=== PATIENT | male | born 1945 | race American Indian/Alaskan Native ===

== ENCOUNTER 2018-04-16 07:02 | Inpatient (IN) | payer MEDICARE, BC ==
[2018-04-10 11:02] VITALS: BMI 32.8
[2018-04-16] MEDS ORDERED: EPINEPHrine 1 mg/ml (1:1000) Inj ONE (07:40)
[2018-04-16] MEDS ORDERED: Absorbable Gelatin Sponge Size 12-7 ONE (07:41)
[2018-04-16] MEDS ORDERED: Thrombin Topical 5,000 Int Units Spray Kit ONE ×2 (07:41→11:08)
[2018-04-16] MEDS ORDERED: Lactated Ringer's 1,000 ML IV ONE ×2 (08:19→14:39)
[2018-04-16 08:23] LABS: BASO % 0.5 % (0.0-2.0); EOS # 0.2 K/uL (0.0-0.7); HEMOGLOBIN 13.4 g/dL (12.0-18.0); LYMPH # 1.2 K/uL (1.0-4.3); LYMPH % 15.3 % (20.0-40.0); MEAN CELL VOLUME 89.5 fl (80.0-94.0); MEAN CORPUSCULAR HEMOGLOBIN 30.2 pg (27.0-31.0); MEAN CORPUSCULAR HGB CONC 33.8 g/dL (33.0-37.0); MEAN PLATELET VOLUME 8.8 fl (7.2-11.7); MONO # 0.7 K/uL (0.0-0.8); MONO % 8.6 % (0.0-10.0); NEUT # 5.6 K/uL (1.8-7.0); NEUT % 73.6 % (50.0-75.0); NRBC % 0.1 % (0.0-0.0); RBC 4.42 Mil/uL (4.40-5.90); RED CELL DISTRIBUTION WIDTH 13.8 % (11.5-14.5); WHITE BLOOD COUNT 7.6 K/uL (4.8-10.8)
--- NOTE | 2018-04-16 09:14 | CP.PCM.HP ---
Addendum entered and electronically signed by Cedric Aquino MD 04/16/18 18:17: Patient was seen and evaluated with resident in [facility] .All preop data reviewed . Patient has medical clearance in the chart. Agree with resident assessment and plan Will follow up patient post op . Original Note: History of Present Illness - History of Present Illness History of Present Illness: 72 y/o male patient with PMHx of Type II Diabetes, Hypertension and Hyperlipidemia was seen and evaluated in [facility] for Left Hip replacement today. Patient states he had pain to the left hip and left knee for the last 4-5 months. Patient states he was referred to Physical therapy and has received pain medication, however patient has failed outpatient therapy at this time. Patient denies any injections to the left hip. Patient states pain is worse with ambulation. Patient complains of urinary urgency, however, denies urinary burning pain, urinary retention, fever, shortness of breath, chest pain, nausea, vomiting, abdominal pain, headache, dizziness, posterior calf tenderness. Patient last saw Dr. Smith 2 weeks ago All patient lab, EKG, and imaging in chart, and medical clearance obtained from PMD and tie hacker Dr. Velasquez Sutton BUN/Cr: 19/1.3 H/H: 14.3/44.1 UA: negative PMD: Dr. Kelechi Carreon PMHx: Type II DM, HTN, HLD FHx: patient does not recal family history PSHx: Cholecystectomy (8 years ago at [facility]), Nasal Surgery (Cyst removal) Social Hx: admits to ETOH use (4-5 cans of beer daily, states he stopped 3 weeks before surgery), admits to daily medical marijuana use, states quit drug use 30 years ago, lives in a 2-family home with 1 flight of stairs with and stepson Allergies: Aspirin, Antiobitics (patient does not recall which medication, states he breaks out into hives post surgery) Next of Kin: Present on Admission - Present on Admission Any Indicators Present on Admission: No History of DVT/PE: No Urinary Catheter: No Review of Systems - Constitutional Constitutional: absent: Chills, Fever, Headache, Weakness - EENT Eyes: absent: Blurred Vision, Change in Vision Nose/Mouth/Throat: absent: Dysphagia - Cardiovascular Cardiovascular: absent: Chest Pain, Chest Pain at Rest, Dyspnea on Exertion - Respiratory Respiratory: absent: Cough, Dyspnea on Exertion, Wheezing - Gastrointestinal Gastrointestinal: absent: Abdominal Pain, Constipation, Diarrhea, Nausea, Vomiting - Genitourinary Genitourinary: Urinary Urgency. absent: Difficulty Urinating, Dysuria, Urinary Incontinence - Integumentary Integumentary: absent: Rash - Neurological Neurological: absent: Dizziness, Numbness, Tingling Past Patient History - Past Medical History & Family History Past Medical History?: Yes - Past Social History Smoking Status: Never Smoked - CARDIAC Hx Cardiac Disorders: Yes Hx Hypertension: Yes - PULMONARY Hx Respiratory Disorders: No - NEUROLOGICAL Hx Neurological Disorder: No - HEENT Hx HEENT Problems: No - RENAL Hx Chronic Kidney Disease: No - ENDOCRINE/METABOLIC Hx Diabetes Mellitus Type 2: Yes - HEMATOLOGICAL/ONCOLOGICAL Hx Blood Disorders: No - INTEGUMENTARY Hx Dermatological Problems: No - MUSCULOSKELETAL/RHEUMATOLOGICAL Hx Musculoskeletal Disorders: Yes Hx Arthritis: Yes (hips,knees,arms) - GASTROINTESTINAL Hx Gastrointestinal Disorders: No - GENITOURINARY/GYNECOLOGICAL Hx Genitourinary Disorders: No - SURGICAL HISTORY Hx Surgeries: Yes Hx Cholecystectomy: Yes Other/Comment: nasal surgery-cyst - ANESTHESIA Hx Anesthesia: Yes Hx Anesthesia Reactions: No Has any member of the family had a problem w/ anesthesia?: No Meds Allergies/Adverse Reactions: Allergies Allergy/AdvReac Type Severity Reaction Status Date / Time aspirin Allergy RASH Verified 04/10/18 11:02 Physical Exam - Constitutional Appears: Well, Non-toxic, No Acute Distress - Head Exam Head Exam: ATRAUMATIC, NORMOCEPHALIC - Eye Exam Eye Exam: PERRL - ENT Exam ENT Exam: Mucous Membranes Moist - Cardiovascular Exam Cardiovascular Exam: REGULAR RHYTHM, RRR, +S1, +S2. absent: JVD - GI/Abdominal Exam GI & Abdominal Exam: Normal Bowel Sounds, Soft. absent: Distended, Firm, Guarding - Extremities Exam Extremities exam: Positive for: normal inspection. Negative for: calf tenderness Additional comments: pain with hip and knee range of motion on the left, no pitting edema noted, no varicosities - Back Exam Back exam: NORMAL INSPECTION. absent: CVA tenderness (L), CVA tenderness (R) - Neurological Exam Neurological exam: Alert, Oriented x3 Additional comments: Patient antalgic gait - Psychiatric Exam Psychiatric exam: Normal Affect, Normal Mood - Skin Skin Exam: Normal Color Results - Vital Signs Recent Vital Signs: Last Vital Signs Temp 98.5 F 04/16/18 07:33 Pulse 62 04/16/18 07:34 Resp 20 04/16/18 07:33 BP 153/84 H 04/16/18 07:33 Pulse Ox 95 04/16/18 07:33 - Labs Result Diagrams: 04/16/18 08:15 Labs: Laboratory Results - last 24 hr 04/16/18 04/16/18 04/16/18 07:53 08:15 08:15 WBC 7.6 RBC 4.42 Hgb 13.4 Hct 39.6 MCV 89.5 MCH 30.2 MCHC 33.8 RDW 13.8 Plt Count 203 MPV 8.8 Neut % (Auto) 73.6 Lymph % (Auto) 15.3 L [place] % (Auto) 8.6 Eos % (Auto) 2.0 Baso % (Auto) 0.5 Neut # (Auto) 5.6 Lymph # (Auto) 1.2 [place] # (Auto) 0.7 Eos # (Auto) 0.2 Baso # (Auto) 0.0 POC Glucose (mg/dL) 128 H Crossmatch See Detail BBK History Checked No verified bt Assessment & Plan - Assessment and Plan (Free Text) Assessment: 2 y/o male patient with PMHx of Type II Diabetes, Hypertension and Hyperlipidemia was seen and evaluated in [facility] for Left Hip replacement today. Pat rob states he had pain to the left hip and left knee for the last 4-5 months Plan: 1) Left Hip Arthritis - Patient labs and EKG/Imaging reviewed in chart - Patient failed conservative outpatient management, Left total Hip Replacement 04/16/[address] Smith - Physical Therapy/ Occupational Therapy Consult - Routine post-op care - Pain Control - Consult Dr. Lopez possible surgical intervention, left total hip replacement 04/16/18 2) Type II Diabetes - controlled, chronic - Glipizide 10 mg PO [facility] - HbA1c (03/26/18) 7.1% 3) Hypertension - Losartan 100 mg PO DAILY - Metoprolol 50 mg BID - Zetia 10 mg PO - Chlorthalidone 25 mg pO - Clonidine 0.3 mg 4)Hyperlipidemia - Zetia 10 mg PO 5) DVT Prophylaxis - as per orthopedic surgery, post-op - Date & Time Date: 04/16/18 Time: 11:35
--- NOTE | 2018-04-16 09:37 | CP.PCM.CON ---
History of Present Illness - History of Present Illness History of Present Illness: Orthopedic consultation: Dr. Lopez Patient is a 72 y/o male with PMH of IDDM, HTN and HLD presents for elective L POOJA. The patient has had chronic hip pain for many years which has progressively worsened over the past 4 months. The pain has been resistant to conservative means, including PT and oral medications. He has had much difficulties with his daily activities due to the pain, including walking and standing. He has required use of a cane over the last few months. The pain is dull, constant and located at the lateral hip and groin. It is associated with locking and stiffness. He denies any radiation of pain/numbn ess/tingling/CP/SOB/N/V/D/fever/dysuria/melena. He denies any cardiac or thromboembolic events in the past. He also suffers from bilateral foot diabetic neuropathy. Review of Systems - Review of Systems All systems: reviewed and no additional remarkable complaints except Review of Systems: as per HPI Past Patient History - Past Medical History & Family History Past Medical History?: Yes Past Family History: Reviewed and not pertinent - Past Social History Smoking Status: Never Smoked Alcohol: > 2 Drinks/Day Drugs: Denies Home Situation {Lives}: With Family - CARDIAC Hx Cardiac Disorders: Yes Hx Hypertension: Yes - PULMONARY Hx Respiratory Disorders: No - NEUROLOGICAL Hx Neurological Disorder: No - HEENT Hx HEENT Problems: No - RENAL Hx Chronic Kidney Disease: No - ENDOCRINE/METABOLIC Hx Diabetes Mellitus Type 2: Yes - HEMATOLOGICAL/ONCOLOGICAL Hx Blood Disorders: No - INTEGUMENTARY Hx Dermatological Problems: No - MUSCULOSKELETAL/RHEUMATOLOGICAL Hx Musculoskeletal Disorders: Yes Hx Arthritis: Yes (hips,knees,arms) - GASTROINTESTINAL Hx Gastrointestinal Disorders: No - GENITOURINARY/GYNECOLOGICAL Hx Genitourinary Disorders: No - SURGICAL HISTORY Hx Surgeries: Yes Hx Cholecystectomy: Yes Other/Comment: nasal surgery-cyst - ANESTHESIA Hx Anesthesia: Yes Hx Anesthesia Reactions: No Has any member of the family had a problem w/ anesthesia?: No Meds Allergies/Adverse Reactions: Allergies Allergy/AdvReac Type Severity Reaction Status Date / Time aspirin Allergy RASH Verified 04/10/18 11:02 Physical Exam - Constitutional Appears: Well, No Acute Distress - Head Exam Head Exam: ATRAUMATIC, NORMOCEPHALIC - Eye Exam Eye Exam: EOMI, Normal appearance, PERRL - ENT Exam ENT Exam: Mucous Membranes Moist - Respiratory Exam Respiratory Exam: NORMAL BREATHING PATTERN - Cardiovascular Exam Cardiovascular Exam: +S1, +S2 - GI/Abdominal Exam GI & Abdominal Exam: Soft. absent: Tenderness - Extremities Exam Additional comments: L hip: no deformity, no lesions, no masses sensation diminished but intact SP/DP/TN bilaterally motor intact EHL/FHL/TA/G pedal pulses intact comps soft NT Results - Vital Signs Recent Vital Signs: Last Vital Signs Temp 98.5 F 04/16/18 07:33 Pulse 62 04/16/18 07:34 Resp 20 04/16/18 07:33 BP 153/84 H 04/16/18 07:33 Pulse Ox 95 04/16/18 07:33 - Labs Result Diagrams: 04/16/18 08:15 Labs: Laboratory Results - last 24 hr 04/16/18 04/16/18 04/16/18 07:53 08:15 08:15 WBC 7.6 RBC 4.42 Hgb 13.4 Hct 39.6 MCV 89.5 MCH 30.2 MCHC 33.8 RDW 13.8 Plt Count 203 MPV 8.8 Neut % (Auto) 73.6 Lymph % (Auto) 15.3 L [place] % (Auto) 8.6 Eos % (Auto) 2.0 Baso % (Auto) 0.5 Neut # (Auto) 5.6 Lymph # (Auto) 1.2 [place] # (Auto) 0.7 Eos # (Auto) 0.2 Baso # (Auto) 0.0 POC Glucose (mg/dL) 128 H Blood Type O POSITIVE Blood Type Confirm Antibody Screen Negative Crossmatch See Detail BBK History Checked No verified bt 04/16/18 08:25 WBC RBC Hgb Hct MCV MCH MCHC RDW Plt Count MPV Neut % (Auto) Lymph % (Auto) [place] % (Auto) Eos % (Auto) Baso % (Auto) Neut # (Auto) Lymph # (Auto) [place] # (Auto) Eos # (Auto) Baso # (Auto) POC Glucose (mg/dL) Blood Type Blood Type Confirm O POSITIVE Antibody Screen Crossmatch BBK History Checked Assessment & Plan (1) Osteoarthritis of left hip Assessment and Plan: -OR today for L POOJA with Dr. Lopez -medical/cardiac clearance in chart -admit to hospitalist -TXA on hold for OR -Risks/benefits/alternatives of procedure were explained to patient who unders tands and agrees to proceed with above procedure -above d/w Dr. Lopez in agreement Status: Acute - Date & Time Date: 04/16/18 Time: 09:37
[2018-04-16] MEDS ORDERED: Tranexamic Acid 1,000 MG in Sodium Chloride 0.9% 100 ML IVPB SCH (10:00)
[2018-04-16] MEDS ORDERED: Lidocaine 4% (Laryng-O-Jet) Kit MM ONE (10:31)
[2018-04-16] MEDS ORDERED: Morphine 1 mg/ml preservative-free Inj(Duramorph) ONE (10:31)
[2018-04-16] MEDS ORDERED: Succinylcholine 200 mg/10 ml Inj IV ONE (10:31)
[2018-04-16] MEDS ORDERED: Rocuronium 10 mg/ml (5 ml) ONE ×2 (10:31→12:49)
[2018-04-16] MEDS ORDERED: Etomidate 20 mg/10ml Inj IV ONE (10:33)
[2018-04-16] MEDS ORDERED: ePHEDrine 50 mg/ml Inj ONE (10:38)
[2018-04-16] MEDS ORDERED: EPINEPHrine 1 mg/ml (1:1000) Inj IV ONE (11:37)
[2018-04-16] MEDS ORDERED: Desflurane Inhalation Anesthetic Liq (240 ml) ONE (12:06)
[2018-04-16] MEDS ORDERED: Absorbable Gelatin Sponge Size 100 TP ONE (12:16)
[2018-04-16] MEDS ORDERED: Sodium Chloride 0.9% 1,000 ML IV ONE (12:16)
[2018-04-16] MEDS ORDERED: Phenylephrine 10 mg/ml Inj ONE (12:44)
[2018-04-16] MEDS ORDERED: Neostigmine 1:1000 (1 mg/ml) Inj ONE (12:50)
[2018-04-16] MEDS ORDERED: Sodium Chloride 0.9% 3,000 ML IV ONE (13:30)
[2018-04-16] MEDS ORDERED: HEMOSTATIC MATRIX 10 ML DIS.NEEDLE TOP ONE (14:15)
--- NOTE | 2018-04-16 14:54 | PCM.SURG1 ---
Surgeon's Initial Post Op Note - Surgeon's Notes Surgeon: Jessica Clinical Laboratory Science Professor: RAISSA López/ 2nd qassist Tomas Diaz P_A-C Type of Anesthesia: General Endo, Spinal Anesthesia Administered By: DR Alcides Pickens Pre-Operative Diagnosis: Primary O/A L hip Operative Findings: Sever primary O/A L hip. synovitis L hip joint. contractures L hip Post-Operative Diagnosis: as above Operation Performed: L THR- anteruior approach]. femoral neck osteotomy. arthrotomy L hip synpovectom. release iliopsoas tendon. autograft bone graft. computer navigation Specimen/Specimens Removed: bone synovium cartilage Estimated Blood Loss: EBL {In ML}: 80 Blood Products Given: N/A Drains Used: Wound Vac Post-Op Condition: Fair Date of Surgery/Procedure: 04/16/18 Time of Surgery/Procedure: 12:30 (time in room 11:15)
[2018-04-16] MEDS ORDERED: oxyCODONE 10 mg Immediate Release Tab PO PRN (14:55)
[2018-04-16] MEDS ORDERED: Absorbable Gelatin Sponge Size 100 ONE (14:58)
[2018-04-16] MEDS ORDERED: HYDROmorphone 0.5 mg/0.5 ml ISec IVP PRN (15:03)
--- NOTE | 2018-04-16 16:06 | RAD ---
PROCEDURE: Left Hip X-ray Radiographs. HISTORY: s/p L POOJA COMPARISON: None. FINDINGS: BONES: There is no acute displaced fracture or bone destruction. Bone alignment is normal. JOINTS: Status post total left hip arthroplasty. SOFT TISSUES: Postoperative changes in the periarticular soft tissues. Lateral skin cassandra. OTHER FINDINGS: None. IMPRESSION: Status post total left hip arthroplasty, no acute findings.
[2018-04-16] MEDS: Clindamycin 600mg/50ml NS 600 MG/50 ML BAG IVPB SCH (16:30)
[2018-04-16 19:03] VITALS: RESP 20
[2018-04-17] MEDS: Clindamycin 600mg/50ml NS 600 MG/50 ML BAG IVPB SCH ×3 (00:33→15:59)
[2018-04-17] MEDS: Sodium Chloride 0.9% 1,000 ML IV SCH ×2 (00:34→11:05)
[2018-04-17 06:33] LABS: HEMOGLOBIN 12.7 g/dL (12.0-18.0); MEAN CELL VOLUME 90.5 fl (80.0-94.0); MEAN CORPUSCULAR HEMOGLOBIN 30.5 pg (27.0-31.0); MEAN CORPUSCULAR HGB CONC 33.7 g/dL (33.0-37.0); RBC 4.17 Mil/uL (4.40-5.90); RED CELL DISTRIBUTION WIDTH 13.9 % (11.5-14.5); WHITE BLOOD COUNT 10.9 K/uL (4.8-10.8)
[2018-04-17 06:35] LABS: BLOOD UREA NITROGEN 18 mg/dl (9-20); CALCIUM 8.4 mg/dL (8.4-10.2); GFR NON-AFRICAN AMERICAN > 60
--- NOTE | 2018-04-17 08:34 | CP.PCM.PN ---
Subjective - Date & Time of Evaluation Date of Evaluation: 04/17/18 Time of Evaluation: 08:00 - Subjective Subjective: Patient seen and examined at bedside. Pain is well controlled. Was straight catheterized due to retention last night. Working with PT currently. No acute events overnight. Denies CP/SOB/dizziness/fever. Objective - Vital Signs/Intake and Output Vital Signs (last 24 hours): Temp Pulse Resp BP Pulse Ox 98.4 F 96 H 20 168/89 H 99 04/17/18 07:49 04/17/18 07:49 04/17/18 07:49 04/17/18 07:49 04/17/18 07:49 - Medications Medications: Current Medications Acetaminophen (Tylenol 325mg Tab) 975 mg PO Q8 [facility] Last Admin: 04/17/18 00:33 Dose: 975 mg Chlorthalidone (Hygroton) 25 mg PO DAILY [facility] Clonidine HCl (Catapres) 0.3 mg PO DAILY [facility] Docusate Sodium (Colace) 100 mg PO BID [facility] Last Admin: 04/16/18 18:38 Dose: 100 mg Ezetimibe (Zetia) 10 mg PO DAILY [facility] Enoxaparin Sodium (Lovenox) 40 mg SC DAILY [facility]; Protocol Ferrous Sulfate (Feosol) 325 mg PO TID [facility] Last Admin: 04/16/18 18:38 Dose: 325 mg Folic Acid (Folic Acid) 1 mg PO DAILY [facility] Glipizide (Glucotrol Xl) 10 mg PO BRK [facility] Home Med (Quinine Sulfate [Qualaquin]) 324 mg PO DAILY [facility] Clindamycin Phosphate (Cleocin 600mg/50ml Ns) 600 mg in 50 mls @ 100 mls/hr IVPB Q8 [facility]; Protocol Last Admin: 04/17/18 00:33 Dose: 100 mls/hr Sodium Chloride (Sodium Chloride 0.9%) 1,000 mls @ 100 mls/hr IV .Q10H [facility] Stop: 04/17/18 14:56 Last Admin: 04/17/18 00:34 Dose: 100 mls/hr Losartan Potassium (Cozaar) 100 mg PO DAILY [facility] Metoprolol Tartrate (Lopressor) 50 mg PO BID [facility] Morphine Sulfate (Morphine) 2 mg IVP Q4 PRN PRN Reason: Pain, severe (8-10) Last Admin: 04/17/18 07:05 Dose: 2 mg Ondansetron HCl (Zofran Inj) 4 mg IVP Q6 PRN PRN Reason: Nausea/Vomiting Last Admin: 04/16/18 18:48 Dose: 4 mg Oxycodone HCl (Oxycodone Immediate Release Tab) 10 mg PO Q6 PRN PRN Reason: Pain, moderate (4-7) - Labs Labs: 04/17/18 06:00 04/17/18 06:00 - Extremities Exam Additional comments: L hip: TIFFANY dressings CDI, mild swelling 2nd to surgery sensation diminished but intact SP/DP/TN bilaterally motor intact EHL/FHL/TA/G pedal pulses intact calves soft NT b/l Assessment and Plan (1) Osteoarthritis of left hip Assessment & Plan: POD#1 s/p L POOJA doing well -PT/OT FWB -DVT ppx -encourage OOB with walker/to chair -discharge to TCU today -above d/w Dr. Lopez in agreement Status: Acute
[2018-04-17] MEDS ORDERED: Enoxaparin 40 mg Syringe SC SCH (09:00)
[2018-04-17] MEDS ORDERED: QUININE SULFATE 324 MG PO SCH (09:00)
[2018-04-17] MEDS ORDERED: GlipiZIDE 10 mg SR Tab PO SCH (09:00)
--- NOTE | 2018-04-17 09:35 | CP.PCM.CON ---
History of Present Illness - History of Present Illness History of Present Illness: THE PATIENT IS A 72 YEAR OLD MALE WHO UNDERWENT A LEFT THR YESTERDAY. HE ALSO HAS A HISTORY OF HYPERTENSION, HYPERLIPIDEMIA AND TYPE 2 DM. HE DENIES ANY CAD HISTORY AND HAD A NEGATIVE PHARMACOLOGICAL STRESS TEST AND GOOD LV FUNCTION ON AN ECHOCARDIOGRAM PRIOR TO SURGERY. CARDIOLOGY HAS BEEN ASKED TO FOLLOW HIM ON THIS ADMISSION. HE IS CHEST PAIN FREE AND BREATHING WELL AT THE PRESENT TIME. Past Patient History - Past Medical History & Family History Past Medical History?: Yes Past Family History: Reviewed and not pertinent - Past Social History Smoking Status: Never Smoked Alcohol: > 2 Drinks/Day Drugs: Denies Home Situation {Lives}: With Family - CARDIAC Hx Cardiac Disorders: Yes Hx Hypertension: Yes - PULMONARY Hx Respiratory Disorders: No - NEUROLOGICAL Hx Neurological Disorder: No - HEENT Hx HEENT Problems: No - RENAL Hx Chronic Kidney Disease: No - ENDOCRINE/METABOLIC Hx Diabetes Mellitus Type 2: Yes - HEMATOLOGICAL/ONCOLOGICAL Hx Blood Disorders: No - INTEGUMENTARY Hx Dermatological Problems: No - MUSCULOSKELETAL/RHEUMATOLOGICAL Hx Musculoskeletal Disorders: Yes Hx Arthritis: Yes (hips,knees,arms) - GASTROINTESTINAL Hx Gastrointestinal Disorders: No - GENITOURINARY/GYNECOLOGICAL Hx Genitourinary Disorders: No - SURGICAL HISTORY Hx Surgeries: Yes Hx Cholecystectomy: Yes Other/Comment: nasal surgery-cyst - ANESTHESIA Hx Anesthesia: Yes Hx Anesthesia Reactions: No Has any member of the family had a problem w/ anesthesia?: No Meds Allergies/Adverse Reactions: Allergies Allergy/AdvReac Type Severity Reaction Status Date / Time aspirin Allergy RASH Verified 04/10/18 11:02 - Medications Medications: Current Medications Acetaminophen (Tylenol 325mg Tab) 975 mg PO Q8 [facility] Last Admin: 04/17/18 00:33 Dose: 975 mg Chlorthalidone (Hygroton) 25 mg PO DAILY [facility] Clonidine HCl (Catapres) 0.3 mg PO DAILY [facility] Docusate Sodium (Colace) 100 mg PO BID [facility] Last Admin: 04/17/18 09:07 Dose: 100 mg Ezetimibe (Zetia) 10 mg PO DAILY [facility] Enoxaparin Sodium (Lovenox) 40 mg SC DAILY [facility]; Protocol Last Admin: 04/17/18 09:08 Dose: 40 mg Ferrous Sulfate (Feosol) 325 mg PO TID [facility] Last Admin: 04/17/18 09:06 Dose: 325 mg Folic Acid (Folic Acid) 1 mg PO DAILY [facility] Last Admin: 04/17/18 09:11 Dose: 1 mg Glipizide (Glucotrol Xl) 10 mg PO BRK [facility] Home Med (Quinine Sulfate [Qualaquin]) 324 mg PO DAILY [facility] Clindamycin Phosphate (Cleocin 600mg/50ml Ns) 600 mg in 50 mls @ 100 mls/hr IVPB Q8 [facility]; Protocol Last Admin: 04/17/18 00:33 Dose: 100 mls/hr Sodium Chloride (Sodium Chloride 0.9%) 1,000 mls @ 100 mls/hr IV .Q10H [facility] Stop: 04/17/18 14:56 Last Admin: 04/17/18 00:34 Dose: 100 mls/hr Losartan Potassium (Cozaar) 100 mg PO DAILY [facility] Metoprolol Tartrate (Lopressor) 50 mg PO BID [facility] Last Admin: 04/17/18 09:12 Dose: 50 mg Morphine Sulfate (Morphine) 2 mg IVP Q4 PRN PRN Reason: Pain, severe (8-10) Last Admin: 04/17/18 07:05 Dose: 2 mg Ondansetron HCl (Zofran Inj) 4 mg IVP Q6 PRN PRN Reason: Nausea/Vomiting Last Admin: 04/16/18 18:48 Dose: 4 mg Oxycodone HCl (Oxycodone Immediate Release Tab) 10 mg PO Q6 PRN PRN Reason: Pain, moderate (4-7) Physical Exam - Respiratory Exam Respiratory Exam: Clear to Auscultation Bilateral - Cardiovascular Exam Cardiovascular Exam: REGULAR RHYTHM, +S1, +S2 - Extremities Exam Additional comments: NO LE EDEMA - Additional Findings Additional findings: SURGICAL NOTES REVIEWED Results - Vital Signs Recent Vital Signs: Last Vital Signs Temp 98.4 F 04/17/18 07:49 Pulse 96 H 04/17/18 09:12 Resp 20 04/17/18 07:49 BP 180/100 H 04/17/18 09:12 Pulse Ox 99 04/17/18 07:49 - Labs Result Diagrams: 04/17/18 06:00 04/17/18 06:00 Labs: Laboratory Results - last 24 hr 04/16/18 04/16/18 04/17/18 15:01 21:33 05:25 WBC RBC Hgb Hct MCV MCH MCHC RDW Plt Count Sodium Potassium Chloride Carbon Dioxide Anion Gap BUN Creatinine Est GFR ( Amer) Est GFR (Non-Af Amer) POC Glucose (mg/dL) 126 H 194 H 256 H Random Glucose Calcium 04/17/18 04/17/18 06:00 06:00 WBC 10.9 H RBC 4.17 L Hgb 12.7 Hct 37.7 MCV 90.5 MCH 30.5 MCHC 33.7 RDW 13.9 Plt Count 181 Sodium 135 Potassium 3.9 Chloride 102 Carbon Dioxide 25 Anion Gap 12 BUN 18 Creatinine 1.1 Est GFR ( Amer) > 60 Est GFR (Non-Af Amer) > 60 POC Glucose (mg/dL) Random Glucose 222 H Calcium 8.4 Assessment & Plan - Assessment and Plan (Free Text) Assessment: LEFT THR HYPERTENSION HYPERLIPIDEMIA TYPE 2 DM Plan: CONTINUE CLONIDINE, LOSARTAN, METOPROLOL, ZETIA, GLUCOTROL AND LOVENOX FOR REHAB
--- NOTE | 2018-04-17 11:33 | CP.PCM.DIS ---
Provider - Provider Date of Admission: 04/16/18 11:32 Attending physician: Cedric Aquino MD Primary care physician: Dr. Carreon Consults: ortho consult PT consult Time Spent in preparation of Discharge (in minutes): 20 Hospital Course - Lab Results Lab Results: Most Recent Lab Values WBC 10.9 K/uL (4.8-10.8) H 04/17/18 06:00 RBC 4.17 Mil/uL (4.40-5.90) L 04/17/18 06:00 Hgb 12.7 g/dL (12.0-18.0) 04/17/18 06:00 Hct 37.7 % (35.0-51.0) 04/17/18 06:00 MCV 90.5 fl (80.0-94.0) 04/17/18 06:00 MCH 30.5 pg (27.0-31.0) 04/17/18 06:00 MCHC 33.7 g/dL (33.0-37.0) 04/17/18 06:00 RDW 13.9 % (11.5-14.5) 04/17/18 06:00 Plt Count 181 K/uL (130-400) 04/17/18 06:00 MPV 8.8 fl (7.2-11.7) 04/16/18 08:15 Neut % (Auto) 73.6 % (50.0-75.0) 04/16/18 08:15 Lymph % (Auto) 15.3 % (20.0-40.0) L 04/16/18 08:15 [place] % (Auto) 8.6 % (0.0-10.0) 04/16/18 08:15 Eos % (Auto) 2.0 % (0.0-4.0) 04/16/18 08:15 Baso % (Auto) 0.5 % (0.0-2.0) 04/16/18 08:15 Neut # (Auto) 5.6 K/uL (1.8-7.0) 04/16/18 08:15 Lymph # (Auto) 1.2 K/uL (1.0-4.3) 04/16/18 08:15 [place] # (Auto) 0.7 K/uL (0.0-0.8) 04/16/18 08:15 Eos # (Auto) 0.2 K/uL (0.0-0.7) 04/16/18 08:15 Baso # (Auto) 0.0 K/uL (0.0-0.2) 04/16/18 08:15 Sodium 135 mmol/l (132-148) 04/17/18 06:00 Potassium 3.9 MMOL/L (3.6-5.0) 04/17/18 06:00 Chloride 102 mmol/L (98-107) 04/17/18 06:00 Carbon Dioxide 25 mmol/L (22-30) 04/17/18 06:00 Anion Gap 12 (10-20) 04/17/18 06:00 BUN 18 mg/dl (9-20) 04/17/18 06:00 Creatinine 1.1 mg/dl (0.8-1.5) 04/17/18 06:00 Est GFR ( Amer) > 60 04/17/18 06:00 Est GFR (Non-Af Amer) > 60 04/17/18 06:00 POC Glucose (mg/dL) 256 mg/dL (65-110) H 04/17/18 10:40 Random Glucose 222 mg/dL (75-110) H 04/17/18 06:00 Calcium 8.4 mg/dL (8.4-10.2) 04/17/18 06:00 Blood Type O POSITIVE 04/16/18 08:15 Blood Type Confirm O POSITIVE 04/16/18 08:25 Antibody Screen Negative 04/16/18 08:15 Crossmatch See Detail 04/16/18 08:15 BBK History Checked No verified bt 04/16/18 08:15 - Hospital Course Hospital Course: 72 y/o male with PMH HTN , Type II DM , dyslipidemia, hip OA admitted via [facility] for elective left hip replacement . Ortho was consulted and patient underwent left THR. Post op doing well, pain controlled , participated with PT and cleared by ortho for discharge. Post op he developed urinary retention secondary to anesthesia and narcotic use so was started on Flomax PO . Pt eval appreciated . will d/c patient to TCU for PT Follow up with Dr. Lopez in 1 week Lovenox 40 mg SQ daily for DVT prophylaxis 1.Status post Left total hip replacement for osteoarthritis follow up with Dr. Luis Kaplan for DVt prophylaxis pain medication Percoset PRN d/c to TCU for PT 2. Type II Diabetes controlled, chronic Glipizide 10 mg PO [facility] HbA1c (03/26/18) 7.1% 3. Hypertension chronic , controlled continue home meds 4.Hyperlipidemia on Zetia 10 mg PO 5. Post op urinary retention started Flomax most likely urinary retention due to anesthesia and pain management 6. DVT prophylaxis lovenox Discharge Exam - Head Exam Head Exam: ATRAUMATIC, NORMOCEPHALIC - Eye Exam Eye Exam: EOMI, Normal appearance, PERRL Pupil Exam: NORMAL ACCOMODATION - ENT Exam ENT Exam: Mucous Membranes Moist, Normal Exam - Neck Exam Neck exam: Full Rom, Normal Inspection - Respiratory Exam Respiratory Exam: Clear to PA & Lateral, NORMAL BREATHING PATTERN. absent: Rhonchi, Wheezes, Respiratory Distress - Cardiovascular Exam Cardiovascular Exam: REGULAR RHYTHM, RRR, +S1, +S2. absent: JVD - GI/Abdominal Exam GI & Abdominal Exam: Normal Bowel Sounds, Soft. absent: Distended, Guarding, Rebound, Tenderness - Rectal Exam Rectal Exam: Deferred - Extremities Exam Extremities exam: pedal pulses present Additional comments: left hip surgical incision with dressing in place and TIFFANY dressing - Back Exam Back exam: NORMAL INSPECTION - Neurological Exam Neurological exam: Alert, CN II-XII Intact, Oriented x3 - Psychiatric Exam Psychiatric exam: Normal Affect, Normal Mood - Skin Skin Exam: Dry, Intact, Normal Color, Warm Discharge Plan - Discharge Medications Prescriptions: Docusate Sodium [Colace] 100 mg PO BID #20 capsule Ferrous Sulfate 325 mg PO BID #30 tablet oxyCODONE/Acetaminophen [Percocet 5/325 mg Tab] 1 tab PO Q4 PRN #30 tab PRN Reason: Pain, Severe (8-10) Tamsulosin HCl [Flomax] 0.4 mg PO DAILY #10 cap.er.24h - Follow Up Plan Condition: GOOD Disposition: REHAB FACILITY/REHAB UNIT Patient education suggested?: Yes Referrals: Armen Lopez III, MD [Staff Provider] - Kelechi Carreon MD [Family Provider] -
--- NOTE | 2018-04-17 13:42 | RAD ---
Date of service: 04/16/2018 PROCEDURE: Fluoroscopy up to 1 hr. HISTORY: LEFT HIP COMPARISON: None TECHNIQUE: Standard protocol for this study/examination. FINDINGS: Submitted images from the current procedure: 5.0 IMPRESSION: Less than 1 hr fluoroscopic assistance provided during performance of the procedure.
[2018-04-17 15:55] VITALS: BP 155/82; TEMP 97.9; O2SAT 97
[2018-04-17 16:01] VITALS: PULSE 97
--- NOTE | 2018-04-17 16:31 | OP ---
PROCEDURE DATE: 04/16/2018 LOCATION: [facility]. PREOPERATIVE DIAGNOSIS: Primary osteoarthritis of the left hip. OPERATIVE FINDINGS: 1. Severe primary osteoarthritis of the left hip. 2. Synovitis of the left hip joint. 3. Contractures of the left hip. POSTOPERATIVE DIAGNOSES: 1. Primary osteoarthritis of the left hip. 2. Synovitis in the left hip joint. 3. Iliopsoas capsular contracture. OPERATIONS PERFORMED: 1. Left total hip replacement, anterior approach. 2. Femoral neck osteotomy. 3. Arthrotomy of the left hip. 4. Synovectomy. 5. Release of iliopsoas tendon. 6. Autograft bone graft. 7. Computer navigation with the DataSift system. SPECIMENS REMOVED: Bone, synovium, cartilage. BLOOD LOSS: Approximately 80 mL. BLOOD PRODUCTS: No blood products given. DRAINS USED: The TIFFANY wound dressing. POSTOPERATIVE CONDITION: Fair. TIME OF SURGERY: Incision time 12:30, time in the room 11:15. OPERATIVE INDICATIONS: Erik Shields is a 72-year-old with severe hypertrophic osteoarthritis of the left hip. The patient has a marked leg length inequality, left lower extremity markedly shorter than the right and wishes the left lower extremity length, and pros, cons, risks and benefits of surgical approach were discussed. The possibility of mechanical failure, infection, thromboembolic disease, secondary or tertiary surgery was discussed. The patient can no longer withstand the discomfort and wished the surgery to be accomplished. OPERATIVE PROCEDURE: After having obtained informed consent in the above fashion, after having identified side, site and procedure and a critical pause/time-out after the satisfactory induction of general and spinal anesthesia by Dr. Pickens, the patient identified as Erik Shields, was placed in the modified traction positioner in the supine position. All bony prominences were well padded. Under the surgeon's direction, the fluoroscope was positioned, video images were generated, therapeutic decisions were made therefrom. The left lower extremity was found to be short by approximately one-half to three quarter inches preoperatively secondary to the severe nature of the osteoarthritis and the primary migration superiorly and laterally. The possibility of mechanical failure, infection, thromboembolic disease, secondary or tertiary surgery had been discussed. After sterilely prepping and draping the left lower extremity, the incision was described one fingerbreadth distal to the anterior superior iliac spine and four fingerbreadths distal to that, superficial to the tensor fascia femoris muscle. The anterior superior iliac spine was marked with skin incision. After having performed a critical pause/time-out, the incision was carried down through the skin and subcutaneous tissue. The fascia was divided using electrocautery. The investing fascia of the tensor fascia femoris was identified, grasped with an Allis clamp and the digastric tensor fascia femoris muscle was brought down from the fascia. This having been accomplished, the modified Medacta Ezekiel-Lorraine retractor was placed. The posterior aspect of the rectus femoris was identified. Hemostasis controlled with the Aquamantys and the Medacta retractor was placed deeper in a horizontal plane exposing the hip capsule and the hip joint in a horizontal fashion. A retractor was placed superiorly and proximally. The fascia was divided. The underlying anterior branch of the lateral femoral and circumflex vessels were identified and controlled with LigaSure. This having been accomplished, a capsulotomy was accomplished with the hip first in internal rotation and external rotation, brought down to the area of the intertrochanteric line, and the capsule was elevated. The capsule was released. The capsule was tagged at this point using a tag suture. Modified Hohmann retractors were placed and the femoral neck osteotomy was carefully planned. It should be noted that the femoral neck osteotomy because of the leg length was planned preoperatively and was planned intraoperatively using intraoperative fluoroscopy and at this point in time, the femoral neck osteotomy was accomplished at a point approximately 1.5 cm above the lesser trochanter. This having been accomplished, placed. The lower extremity was externally rotated. The half inch straight osteotome was placed in the cut neck, externally rotated. The bone hook was placed. The corkscrew was placed and the femoral head was removed from the acetabulum. At this point in time, the labrum was identified and there was found to be massive osteophytes and these were removed carefully with a curved osteotome. This having been accomplished, the Charnley retractor was placed. A portion of the capsular flap is released and the release begins with the pubofemoral ligament. There was found to be marked contracture in this relatively well muscled 72-year-old gentleman. This having been accomplished, the synovectomy was accomplished carefully. The pulvinar was identified. The synovium was removed. The head measured 50 mm. Sequential reaming was carried out to a 54 mm. This having been accomplished, the computer navigation commences at this point. Two incisions were described on the anterior iliac spine one fingerbreadth posteriorly. The two supporting threaded pins were placed and the camera mounting was placed in the appropriate fashion. This having been accomplished, registration commences the anterior plane of the pelvis with the anterior superior iliac spine on the left and right registered, the pelvis is thus registered. This having been accomplished, reaming was accomplished medially, superiorly and posteriorly and this having been accomplished, the computer probe was placed on the reamer and the measurement is approximately 40 degrees of abduction and 20 degrees of anteversion. Reaming was carried out to 54 mm. The reaming is denuded of articular cartilage and are saved. At this point in time, the cup was introduced after bone grafting and the cup was introduced in abduction and anteversion. This having been accomplished, trialing having been accomplished, autograft bone grafting to the acetabulum was accomplished and the 54 mm cup was impacted. Again, there was approximately 42 degrees of abduction and approximately 20 degrees of anteversion, found to be acceptable for the left hip. This having been accomplished, the lower extremity is placed in external rotation. The pubofemoral ligament was released. The iliofemoral ligament was released and the superior capsular flap was released. This having been accomplished with further external rotation and hyperextension, the proximal femur was identified. The bridge of bone between the neck and the trochanter was removed. The bur was used to develop the plane of the femur. The rasp was placed and sequential reaming was accomplished. Sequential broaching was accomplished to a #2 broach. This having been accomplished with the standard head and 28-mm standard neck, the dual mobility construct was reduced and found to be stable in all planes. This having been accomplished, the #2 Medacta collared femoral component was impacted. Autograft bone grafting was accomplished. The ceramic 20 mm head was conjoined to the 54 mm polyethylene outer bearing. The hip was reduced and found to be stable in all planes. Hemostasis controlled with the Aquamantys and with the FloSeal and this having been accomplished after thorough irrigation. Bone grafting having been accomplished to the femur. Closure was in layers with 0 Quill for the fascia on the tensor fascia femoris, 0 Vicryl and cassandra for skin. A compression dressing and TIFFANY drain was applied. Postoperative x-rays in recovery found to be satisfactory. The hip was found to be stable to push-pull and range of motion. Armen Lopez MD
== END 2018-04-17 16:05 | DRG 470 ==
LOC: H.OPSURG 07:02 → H.MEDSURG1 11:32 → OBSVTOIN 04-17 15:17
PROVIDERS: ADMIT Hospitalist; ATTEND Hospitalist
PROC: 0SBB0ZZ Excision of Left Hip Joint, Open Approach (ICD-10-PCS; 2018-04-16)
PROC: 0SNB0ZZ Release Left Hip Joint, Open Approach (ICD-10-PCS; 2018-04-16)
PROC: 8E0YXBF Computer Assisted Procedure of Lower Extremity, With Fluoroscopy (ICD-10-PCS; 2018-04-16)
PROC: 0SRB04A Replacement of Left Hip Joint with Ceramic on Polyethylene Synthetic Substitute, Uncemented, Open Approach (ICD-10-PCS; principal; 2018-04-16 10:30)
DX: M16.12 Unilateral primary osteoarthritis, left hip (principal); E11.40 Type 2 diabetes mellitus with diabetic neuropathy, unspecified; M65.9 Synovitis and tenosynovitis, unspecified; R33.0 Drug induced retention of urine; Z79.4 Long term (current) use of insulin; E78.5 Hyperlipidemia, unspecified; I10 Essential (primary) hypertension; M24.552 Contracture, left hip; T41.205A Adverse effect of unspecified general anesthetics, initial encounter; T40.605A Adverse effect of unspecified narcotics, initial encounter

== ENCOUNTER 2018-04-17 15:05 | Inpatient (IN) | payer OTHER, BC ==
[2018-04-10 11:02] VITALS: BMI 32.8
[2018-04-17] MEDS ORDERED: Oxycodone/Acetaminophen 5/325 mg Tab PO PRN (17:27)
[2018-04-17] MEDS: Oxycodone/Acetaminophen 5/325 mg Tab PO PRN ×2 (17:53→21:44)
[2018-04-17 19:02] VITALS: RESP 20
[2018-04-17] MEDS: Insulin Lispro (humaLOG) 100 Units/ml Inj SC SCH (21:32)
[2018-04-18] MEDS: Oxycodone/Acetaminophen 5/325 mg Tab PO PRN ×4 (01:38→21:25)
[2018-04-18 06:14] LABS: BASO # 0.1 K/uL (0.0-0.2); BASO % 0.5 % (0.0-2.0); EOS % 0.3 % (0.0-4.0); LYMPH # 0.9 K/uL (1.0-4.3); LYMPH % 5.5 % (20.0-40.0); MEAN CELL VOLUME 89.7 fl (80.0-94.0); MEAN CORPUSCULAR HEMOGLOBIN 30.2 pg (27.0-31.0); MEAN CORPUSCULAR HGB CONC 33.6 g/dL (33.0-37.0); MEAN PLATELET VOLUME 9.1 fl (7.2-11.7); MONO # 1.2 K/uL (0.0-0.8); MONO % 7.3 % (0.0-10.0); NEUT # 14.3 K/uL (1.8-7.0); NEUT % 86.4 % (50.0-75.0); PLATELET COUNT 185 K/uL (130-400); RED CELL DISTRIBUTION WIDTH 14.3 % (11.5-14.5); WHITE BLOOD COUNT 16.5 K/uL (4.8-10.8)
[2018-04-18 06:28] LABS: BLOOD UREA NITROGEN 13 mg/dl (9-20); CALCIUM 8.7 mg/dL (8.4-10.2); GFR NON-AFRICAN AMERICAN > 60
[2018-04-18] MEDS: Insulin Lispro (humaLOG) 100 Units/ml Inj SC SCH ×4 (07:49→21:24)
[2018-04-18 09:30] LABS: LYMPHOCYTE 8 % (20-50); MONOCYTE 7 % (0-10); NEUTROPHIL 85 % (42-75); TOTAL CELLS COUNTED 100
[2018-04-18 09:31] LABS: ANISOCYTOSIS SLIGHT; PLATELET ESTIMATE NORMAL (NORMAL)
[2018-04-18] MEDS: GlipiZIDE 10 mg SR Tab PO SCH (09:32)
[2018-04-18] MEDS ORDERED: Bisacodyl 5mg EC Tab PO ONE (10:48)
--- NOTE | 2018-04-18 11:32 | CP.PCM.HP ---
<Kevin Urias - Last Filed: 04/18/18 12:58> History of Present Illness - History of Present Illness History of Present Illness: 72 y/o male patient with PMHx of Type II Diabetes, Hypertension and Hyperlipidemia is 2 days s/p Left Hip Replacement. Patient failed outpatient therapy and opted to have surgical treatment. Patient reports being seen by Physical Therapy in TCU. Patient complains of pain to the left hip. Patient denies urinary burning, urinary retention, fever, shortness of breath, chest pain, nausea, vomiting, abdominal pain, headache, dizziness, posterior calf tenderness. Present on Admission - Present on Admission Any Indicators Present on Admission: Yes History of DVT/PE: No History of Uncontrolled Diabetes: No Review of Systems - Constitutional Constitutional: absent: Chills, Fever, Headache, Weakness - EENT Eyes: absent: Blurred Vision, Change in Vision, Loss of Vision Ears: absent: Dizziness Nose/Mouth/Throat: absent: Dysphagia - Cardiovascular Cardiovascular: absent: Chest Pain, Chest Pain at Rest, Chest Pain with Activity, Dyspnea, Dyspnea on Exertion, Edema, Pain Radiating to Arm/Neck/Jaw, Palpitations, Pedal Edema - Gastrointestinal Gastrointestinal: Nausea, Vomiting. absent: Abdominal Pain, Diarrhea - Integumentary Integumentary: absent: Rash - Neurological Neurological: absent: Numbness, Headaches, Syncope, Tingling Past Patient History - Infectious Disease Hx of Infectious Diseases: None - Tetanus Immunizations Tetanus Immunization: Unknown - Past Medical History & Family History Past Medical History?: Yes - Past Social History Smoking Status: Current Some Days Smoker Chewing Tobacco Use: No Cigar Use: No Alcohol: > 2 Drinks/Day Drugs: Other Home Situation {Lives}: With Family Domestic Violence: Negative - CARDIAC Hx Cardiac Disorders: Yes Hx Hypertension: Yes - PULMONARY Hx Respiratory Disorders: No - NEUROLOGICAL Hx Neurological Disorder: No - HEENT Hx HEENT Problems: No - RENAL Hx Chronic Kidney Disease: No - ENDOCRINE/METABOLIC Hx Diabetes Mellitus Type 2: Yes - HEMATOLOGICAL/ONCOLOGICAL Hx AIDS: No Hx Human Immunodeficiency Virus (HIV): No - INTEGUMENTARY Hx Dermatological Problems: No - MUSCULOSKELETAL/RHEUMATOLOGICAL Hx Falls: No - GASTROINTESTINAL Hx Gastrointestinal Disorders: No - GENITOURINARY/GYNECOLOGICAL Hx Genitourinary Disorders: No - PSYCHIATRIC Hx Substance Use: No - SURGICAL HISTORY Hx Surgeries: Yes Hx Cholecystectomy: Yes Hx Orthopedic Surgery: Yes (left total hip replacement) Other/Comment: nasal surgery-cyst - ANESTHESIA Hx Anesthesia: Yes Hx Anesthesia Reactions: No Meds Allergies/Adverse Reactions: Allergies Allergy/AdvReac Type Severity Reaction Status Date / Time aspirin Allergy RASH Verified 04/10/18 11:02 Physical Exam - Constitutional Appears: Well, Non-toxic, No Acute Distress - Head Exam Head Exam: ATRAUMATIC, NORMOCEPHALIC - Eye Exam Eye Exam: Normal appearance, PERRL - ENT Exam ENT Exam: Mucous Membranes Moist - Neck Exam Neck exam: Positive for: Full Rom. Negative for: Lymphadenopathy - Respiratory Exam Respiratory Exam: Clear to Auscultation Bilateral, NORMAL BREATHING PATTERN. absent: Rales, Rhonchi, Wheezes - Cardiovascular Exam Cardiovascular Exam: REGULAR RHYTHM, RRR, +S1, +S2 - GI/Abdominal Exam GI & Abdominal Exam: Normal Bowel Sounds. absent: Distended, Firm, Guarding, Tenderness - Extremities Exam Extremities exam: Positive for: normal inspection. Negative for: calf tenderness Additional comments: small dressing to the left hip intact and clean - Back Exam Back exam: NORMAL INSPECTION. absent: CVA tenderness (L), CVA tenderness (R) - Neurological Exam Neurological exam: Alert, Oriented x3 - Skin Skin Exam: Normal Color Results - Vital Signs Recent Vital Signs: Last Vital Signs Temp 98.8 F 04/18/18 09:28 Pulse 93 H 04/18/18 09:32 Resp 20 04/18/18 09:28 BP 160/96 H 04/18/18 09:32 Pulse Ox 96 04/18/18 09:28 - Labs Result Diagrams: 04/18/18 05:40 04/18/18 05:40 Labs: Laboratory Results - last 24 hr 04/17/18 04/18/18 04/18/18 21:18 05:40 05:40 WBC 16.5 H D RBC 4.30 L Hgb 13.0 Hct 38.5 MCV 89.7 MCH 30.2 MCHC 33.6 RDW 14.3 Plt Count 185 MPV 9.1 Neut % (Auto) 86.4 H Lymph % (Auto) 5.5 L Wright % (Auto) 7.3 Eos % (Auto) 0.3 Baso % (Auto) 0.5 Neut # (Auto) 14.3 H Lymph # (Auto) 0.9 L Wright # (Auto) 1.2 H Eos # (Auto) 0.0 Baso # (Auto) 0.1 Neutrophils % (Manual) 85 H Lymphocytes % (Manual) 8 L Monocytes % (Manual) 7 Platelet Estimate Normal Anisocytosis (manual) Slight Sodium 133 Potassium 4.0 Chloride 100 Carbon Dioxide 29 Anion Gap 8 L BUN 13 Creatinine 0.9 Est GFR ( Amer) > 60 Est GFR (Non-Af Amer) > 60 POC Glucose (mg/dL) 155 H Random Glucose 179 H Calcium 8.7 04/18/18 04/18/18 06:31 11:07 WBC RBC Hgb Hct MCV MCH MCHC RDW Plt Count MPV Neut % (Auto) Lymph % (Auto) Wright % (Auto) Eos % (Auto) Baso % (Auto) Neut # (Auto) Lymph # (Auto) Wright # (Auto) Eos # (Auto) Baso # (Auto) Neutrophils % (Manual) Lymphocytes % (Manual) Monocytes % (Manual) Platelet Estimate Anisocytosis (manual) Sodium Potassium Chloride Carbon Dioxide Anion Gap BUN Creatinine Est GFR ( Amer) Est GFR (Non-Af Amer) POC Glucose (mg/dL) 151 H 213 H Random Glucose Calcium Assessment & Plan - Assessment and Plan (Free Text) Assessment: 72 y/o male with left hip arthritis 2 days s/p total hip replacement with Dr. Lopez Plan: 1) Left Hip Arthritis s/p 2 days Left total hip Replacement - Patient tolerated procedure well - Patient transferred to TCU for further post-operative care - Patient to continue with Physical Therapy - Pain Control 2) Type II Diabetes - controlled, chronic - Glipizide 10 mg PO DALTON - HbA1c (03/26/18) 7.1% 3) Hypertension - Losartan 100 mg PO DAILY - Metoprolol 50 mg BID - Zetia 10 mg PO - Chlorthalidone 25 mg pO - Clonidine 0.3 mg 4)Hyperlipidemia - Zetia 10 mg PO 5) DVT Prophylaxis - as per orthopedic surgery, post-op - Date & Time Date: 04/18/18 Time: 13:23 <Richi Rubio - Last Filed: 04/18/18 14:26> Results - Vital Signs Recent Vital Signs: Last Vital Signs Temp 98.8 F 04/18/18 09:28 Pulse 93 H 04/18/18 09:32 Resp 20 04/18/18 09:28 BP 160/96 H 04/18/18 09:32 Pulse Ox 96 04/18/18 09:28 - Labs Result Diagrams: 04/18/18 05:40 04/18/18 05:40 Labs: Laboratory Results - last 24 hr 04/17/18 04/18/18 04/18/18 21:18 05:40 05:40 WBC 16.5 H D RBC 4.30 L Hgb 13.0 Hct 38.5 MCV 89.7 MCH 30.2 MCHC 33.6 RDW 14.3 Plt Count 185 MPV 9.1 Neut % (Auto) 86.4 H Lymph % (Auto) 5.5 L Wright % (Auto) 7.3 Eos % (Auto) 0.3 Baso % (Auto) 0.5 Neut # (Auto) 14.3 H Lymph # (Auto) 0.9 L Wright # (Auto) 1.2 H Eos # (Auto) 0.0 Baso # (Auto) 0.1 Neutrophils % (Manual) 85 H Lymphocytes % (Manual) 8 L Monocytes % (Manual) 7 Platelet Estimate Normal Anisocytosis (manual) Slight Sodium 133 Potassium 4.0 Chloride 100 Carbon Dioxide 29 Anion Gap 8 L BUN 13 Creatinine 0.9 Est GFR ( Amer) > 60 Est GFR (Non-Af Amer) > 60 POC Glucose (mg/dL) 155 H Random Glucose 179 H Calcium 8.7 04/18/18 04/18/18 06:31 11:07 WBC RBC Hgb Hct MCV MCH MCHC RDW Plt Count MPV Neut % (Auto) Lymph % (Auto) Wright % (Auto) Eos % (Auto) Baso % (Auto) Neut # (Auto) Lymph # (Auto) Wright # (Auto) Eos # (Auto) Baso # (Auto) Neutrophils % (Manual) Lymphocytes % (Manual) Monocytes % (Manual) Platelet Estimate Anisocytosis (manual) Sodium Potassium Chloride Carbon Dioxide Anion Gap BUN Creatinine Est GFR ( Amer) Est GFR (Non-Af Amer) POC Glucose (mg/dL) 151 H 213 H Random Glucose Calcium Attending/Attestation - Attestation I have personally seen and examined this patient.: Yes I have fully participated in the care of the patient.: Yes I have reviewed all pertinent clinical information: Yes Notes (Text): 04/18/18 14:24 Patient seen and examined with resident. Case was discussed and agreed with assessment and plan of management.
[2018-04-18] MEDS: Enoxaparin 40 mg Syringe SC SCH (12:07)
--- NOTE | 2018-04-18 12:18 | CP.PCM.CON ---
History of Present Illness - History of Present Illness History of Present Illness: 72 y/o male patient with PMHx of Type II Diabetes, Hypertension and Hyperlipidemia is s/p Left Hip replacement Patient states he had pain to the left hip and left knee for the last 4-5 months. Found to have severe degen left hip Pt denies fever chills cough or chest pain Awake alert NAD Tolerating PT PMHx: Type II DM, HTN, HLD Hep C ( treated cured ) FHx: HTN PSHx: Cholecystectomy (8 years ago at [facility]), Nasal Surgery (Cyst removal) Social Hx: admits to ETOH use (4-5 cans of beer daily, states he stopped 3 weeks before surgery), admits to daily medical marijuana use, states quit drug use 30 years ago, lives in a 2-family home with 1 flight of stairs with and stepson Allergies: Aspirin, Antiobitics (patient does not recall which medication, states he breaks out into hives post surgery) Next of Kin: Review of Systems - Review of Systems All systems: reviewed and no additional remarkable complaints except - Constitutional Constitutional: As Per HPI - EENT Eyes: absent: As Per HPI, Blind Spots, Blurred Vision, Change in Vision, Decreased Night Vision, Diplopia, Discharge, Dry Eye, Exophthalmos, Floaters, Irritation, Itchy Eyes, Loss of Peripheral Vision, Pain, Photophobia, Requires Corrective Lenses, Sees Flashes, Spots in Vision, Tunnel Vision, Other Visual Disturbances, Loss of Vision, Other Ears: absent: As Per HPI, Decreased Hearing, Ear Discharge, Ear Pain, Tinnitus, Abnormal Hearing, Disequilibrium, Dizziness, Other Nose/Mouth/Throat: absent: As Per HPI, Epistaxis, Nasal Congestion, Nasal Discharge, Nasal Obstruction, Nasal Trauma, Nose Pain, Post Nasal Drip, Sinus Pain, Sinus Pressure, Bleeding Gums, Change in Voice, Dental Pain, Dry Mouth, Dysphagia, Halitosis, Hoarsness, Lip Swelling, Mouth Lesions, Mouth Pain, Odynophagia, Sore Throat, Throat Swelling, Tongue Swelling, Facial Pain, Neck Pain, Neck Mass, Other - Cardiovascular Cardiovascular: absent: As Per HPI, Acrocyanosis, Chest Pain, Chest Pain at Rest, Chest Pain with Activity, Claudication, Diaphoresis, Dyspnea, Dyspnea on Exertion, Edema, Irregular Heart Rhythm, Pain Radiating to Arm/Neck/Jaw, Leg Edema, Leg Ulcers, Lightheadedness, Orthopnea, Palpitations, Paroxysmal Nocturna l Dyspnea, Pedal Edema, Radiating Pain, Rapid Heart Rate, Slow Heart Rate, Syncope, Other - Respiratory Respiratory: absent: As Per HPI, Cough, Dyspnea, Hemoptysis, Dyspnea on Exertion, Wheezing, Snoring, Stridor, Pain on Inspiration, Chest Congestion, Excessive Mucous Production, Change in Mucous Color, Pain with Coughing, Other - Gastrointestinal Gastrointestinal: absent: As Per HPI, Abdominal Pain, Belching, Bloating, Change in Bowel Habits, Change in Stool Character, Coffee Ground Emesis, Constipation, Cramping, Diarrhea, Dyspepsia, Dysphagia, Early Satiety, Excessive Flatus, Fecal Incontinence, Heartburn, Hematemesis, Hematochezia, Loose Stools, Melena, Nausea, Odynophagia, Temesmus, Vomiting, Other - Genitourinary Genitourinary: As Per HPI - Musculoskeletal Musculoskeletal: As Per HPI - Integumentary Integumentary: absent: As Per HPI, Acne, Alopecia, Bleeding Lesions, Change in Hair, Change in Nails, Change in Pigmentation, Changing Lesions, Dry Skin, Erythema, Furuncle, Hirsutism, Lesions, New Lesions, Non-Healing Lesions, Photosensitivity, Pruritus, Rash, Skin Pain, Skin Ulcer, Sores, Striae, Swelling, Unusual Bruising, Wounds, Jaundice, Other - Neurological Neurological: absent: As Per HPI, Abnormal Gait, Abnormal Hearing, Abnormal Movements, Abnormal Speech, Behavioral Changes, Burning Sensations, Confusion, Convulsions, Disequilibrium, Dizziness, Numbness, Focal Weakness, Frequent Falls, Headaches, Lack of Coordination, Loss of Vision, Memory Loss, Paresthesias, Radicular Pain, Restless Legs, Sensory Deficit, Syncope, Tingling, Tremor, Vertigo, Weakness, Other Visual Disturbances, Other - Psychiatric Psychiatric: absent: As Per HPI, Abnormal Sleep Pattern, Anhedonia, Anxiety, Auditory Hallucinations, Behavioral Changes, Change in Appetite, Change in Libido, Confusion, Depression, Difficulty Concentrating, Hallucinations, Homicidal Ideation, Hopelessness, Irritability, Memory Loss, Mood Swings, Panic Attacks, Paranoia, Suicidal Ideation, Visual Hallucinations, Tactile Hallucinations, Other - Endocrine Endocrine: absent: As Per HPI, Change in Body Appearance, Change in Libido, Cold Intolorance, Deepening of Voice, Excessive Sweating, Fatigue, Flushing, Heat Intolorance, Increase in Ring/Shoe/Hat Size, Palpitations, Polydipsia, Polyphagia, Polyuria, Other - Hematologic/Lymphatic Hematologic: absent: As Per HPI, Easy Bleeding, Easy Bruising, Lymphadenopathy, Other Past Patient History - Past Medical History & Family History Past Medical History?: Yes - Past Social History Smoking Status: Never Smoked - CARDIAC Hx Cardiac Disorders: Yes Hx Hypertension: Yes - PULMONARY Hx Respiratory Disorders: No - NEUROLOGICAL Hx Neurological Disorder: No - HEENT Hx HEENT Problems: No - RENAL Hx Chronic Kidney Disease: No - ENDOCRINE/METABOLIC Hx Diabetes Mellitus Type 2: Yes - HEMATOLOGICAL/ONCOLOGICAL Hx AIDS: No Hx Human Immunodeficiency Virus (HIV): No - INTEGUMENTARY Hx Dermatological Problems: No - MUSCULOSKELETAL/RHEUMATOLOGICAL Hx Falls: No - GASTROINTESTINAL Hx Gastrointestinal Disorders: No - GENITOURINARY/GYNECOLOGICAL Hx Genitourinary Disorders: No - PSYCHIATRIC Hx Substance Use: No - SURGICAL HISTORY Hx Surgeries: Yes Hx Cholecystectomy: Yes Hx Orthopedic Surgery: Yes (left total hip replacement) Other/Comment: nasal surgery-cyst - ANESTHESIA Hx Anesthesia: Yes Hx Anesthesia Reactions: No Meds Allergies/Adverse Reactions: Allergies Allergy/AdvReac Type Severity Reaction Status Date / Time aspirin Allergy RASH Verified 04/10/18 11:02 - Medications Medications: Current Medications Acetaminophen (Tylenol 325mg Tab) 650 mg PO Q6 PRN PRN Reason: Fever >100.4 F Chlorthalidone (Hygroton) 25 mg PO DAILY [facility] Last Admin: 04/18/18 09:32 Dose: 25 mg Clonidine HCl (Catapres) 0.3 mg PO DAILY [facility] Last Admin: 04/18/18 09:31 Dose: 0.3 mg Docusate Sodium (Colace) 100 mg PO BID [facility] Last Admin: 04/18/18 09:31 Dose: 100 mg Ezetimibe (Zetia) 10 mg PO DAILY [facility] Last Admin: 04/18/18 09:32 Dose: 10 mg Enoxaparin Sodium (Lovenox) 40 mg SC DAILY [facility]; Protocol Last Admin: 04/18/18 12:07 Dose: 40 mg Ferrous Sulfate (Feosol) 325 mg PO BID [facility] Last Admin: 04/18/18 09:42 Dose: 325 mg Glipizide (Glucotrol Xl) 10 mg PO BRK [facility] Last Admin: 04/18/18 09:32 Dose: 10 mg Home Med (Quinine Sulfate [Qualaquin]) 324 mg PO DAILY [facility] Insulin Human Lispro (Humalog) 0 units SC [facility]; Protocol Last Admin: 04/18/18 12:06 Dose: 2 u Losartan Potassium (Cozaar) 100 mg PO DAILY [facility] Last Admin: 04/18/18 09:32 Dose: 100 mg Metoprolol Tartrate (Lopressor) 50 mg PO DAILY [facility] Last Admin: 04/18/18 09:31 Dose: 50 mg Ondansetron HCl (Zofran Inj) 4 mg IVP Q6 PRN PRN Reason: Nausea/Vomiting Oxycodone/Acetaminophen (Percocet 5/325 Mg Tab) 1 tab PO Q4 PRN PRN Reason: Pain, moderate (4-7) Stop: 04/20/18 17:28 Last Admin: 04/18/18 01:38 Dose: 1 tab Oxycodone/Acetaminophen (Percocet 5/325 Mg Tab) 2 tab PO Q6 PRN PRN Reason: Pain, severe (8-10) Stop: 04/20/18 17:35 Last Admin: 04/18/18 09:25 Dose: 2 tab Tamsulosin HCl (Flomax) 0.4 mg PO DAILY [facility] Last Admin: 04/18/18 09:31 Dose: 0.4 mg Physical Exam - Constitutional Appears: Non-toxic, Chronically Ill - Head Exam Head Exam: NORMOCEPHALIC - Eye Exam Eye Exam: absent: Scleral icterus - ENT Exam ENT Exam: Mucous Membranes Dry - Neck Exam Neck exam: Negative for: Lymphadenopathy - Respiratory Exam Respiratory Exam: Decreased Breath Sounds - Cardiovascular Exam Cardiovascular Exam: REGULAR RHYTHM - GI/Abdominal Exam GI & Abdominal Exam: Diminished Bowel Sounds, Soft. absent: Tenderness - Rectal Exam Rectal Exam: Deferred - Exam Exam: NORMAL INSPECTION - Extremities Exam Extremities exam: Negative for: pedal edema - Back Exam Back exam: absent: CVA tenderness (L), CVA tenderness (R) - Neurological Exam Neurological exam: Alert, CN II-XII Intact, Oriented x3, Reflexes Normal - Psychiatric Exam Psychiatric exam: Normal Mood - Skin Skin Exam: Dry Results - Vital Signs Recent Vital Signs: Last Vital Signs Temp 98.8 F 04/18/18 09:28 Pulse 93 H 04/18/18 09:32 Resp 20 04/18/18 09:28 BP 160/96 H 04/18/18 09:32 Pulse Ox 96 04/18/18 09:28 - Labs Result Diagrams: 04/18/18 05:40 04/18/18 05:40 Labs: Laboratory Results - last 24 hr 04/17/18 04/18/18 04/18/18 21:18 05:40 05:40 WBC 16.5 H D RBC 4.30 L Hgb 13.0 Hct 38.5 MCV 89.7 MCH 30.2 MCHC 33.6 RDW 14.3 Plt Count 185 MPV 9.1 Neut % (Auto) 86.4 H Lymph % (Auto) 5.5 L [place] % (Auto) 7.3 Eos % (Auto) 0.3 Baso % (Auto) 0.5 Neut # (Auto) 14.3 H Lymph # (Auto) 0.9 L [place] # (Auto) 1.2 H Eos # (Auto) 0.0 Baso # (Auto) 0.1 Neutrophils % (Manual) 85 H Lymphocytes % (Manual) 8 L Monocytes % (Manual) 7 Platelet Estimate Normal Anisocytosis (manual) Slight Sodium 133 Potassium 4.0 Chloride 100 Carbon Dioxide 29 Anion Gap 8 L BUN 13 Creatinine 0.9 Est GFR ( Amer) > 60 Est GFR (Non-Af Amer) > 60 POC Glucose (mg/dL) 155 H Random Glucose 179 H Calcium 8.7 04/18/18 04/18/18 06:31 11:07 WBC RBC Hgb Hct MCV MCH MCHC RDW Plt Count MPV Neut % (Auto) Lymph % (Auto) [place] % (Auto) Eos % (Auto) Baso % (Auto) Neut # (Auto) Lymph # (Auto) [place] # (Auto) Eos # (Auto) Baso # (Auto) Neutrophils % (Manual) Lymphocytes % (Manual) Monocytes % (Manual) Platelet Estimate Anisocytosis (manual) Sodium Potassium Chloride Carbon Dioxide Anion Gap BUN Creatinine Est GFR ( Amer) Est GFR (Non-Af Amer) POC Glucose (mg/dL) 151 H 213 H Random Glucose Calcium Assessment & Plan (1) Osteoarthritis of left hip Status: Acute - Assessment and Plan (Free Text) Assessment: leukocytosis likely reactive no obvious infection dry lesion right second toe appears healed callus observe off antibiotics fopr now follow cbc
--- NOTE | 2018-04-18 13:39 | CP.PCM.PN ---
Subjective - Date & Time of Evaluation Date of Evaluation: 04/18/18 Time of Evaluation: 13:37 - Subjective Subjective: Patient states pain is controlled in hip> Denies CP/SOB/dizziness/n/v/ +constipation urinary retention improving Objective - Vital Signs/Intake and Output Vital Signs (last 24 hours): Temp Pulse Resp BP Pulse Ox 98.8 F 93 H 20 160/96 H 96 04/18/18 09:28 04/18/18 09:32 04/18/18 09:28 04/18/18 09:32 04/18/18 09:28 - Medications Medications: Current Medications Acetaminophen (Tylenol 325mg Tab) 650 mg PO Q6 PRN PRN Reason: Fever >100.4 F Chlorthalidone (Hygroton) 25 mg PO DAILY [facility] Last Admin: 04/18/18 09:32 Dose: 25 mg Clonidine HCl (Catapres) 0.3 mg PO DAILY [facility] Last Admin: 04/18/18 09:31 Dose: 0.3 mg Docusate Sodium (Colace) 100 mg PO BID [facility] Last Admin: 04/18/18 09:31 Dose: 100 mg Ezetimibe (Zetia) 10 mg PO DAILY [facility] Last Admin: 04/18/18 09:32 Dose: 10 mg Enoxaparin Sodium (Lovenox) 40 mg SC DAILY [facility]; Protocol Last Admin: 04/18/18 12:07 Dose: 40 mg Ferrous Sulfate (Feosol) 325 mg PO BID [facility] Last Admin: 04/18/18 09:42 Dose: 325 mg Glipizide (Glucotrol Xl) 10 mg PO BRK [facility] Last Admin: 04/18/18 09:32 Dose: 10 mg Home Med (Quinine Sulfate [Qualaquin]) 324 mg PO DAILY [facility] Insulin Human Lispro (Humalog) 0 units SC [facility]; Protocol Last Admin: 04/18/18 12:06 Dose: 2 u Losartan Potassium (Cozaar) 100 mg PO DAILY [facility] Last Admin: 04/18/18 09:32 Dose: 100 mg Metoprolol Tartrate (Lopressor) 50 mg PO DAILY [facility] Last Admin: 04/18/18 09:31 Dose: 50 mg Ondansetron HCl (Zofran Inj) 4 mg IVP Q6 PRN PRN Reason: Nausea/Vomiting Oxycodone/Acetaminophen (Percocet 5/325 Mg Tab) 1 tab PO Q4 PRN PRN Reason: Pain, moderate (4-7) Stop: 04/20/18 17:28 Last Admin: 04/18/18 01:38 Dose: 1 tab Oxycodone/Acetaminophen (Percocet 5/325 Mg Tab) 2 tab PO Q6 PRN PRN Reason: Pain, severe (8-10) Stop: 04/20/18 17:35 Last Admin: 04/18/18 09:25 Dose: 2 tab Tamsulosin HCl (Flomax) 0.4 mg PO DAILY [facility] Last Admin: 04/18/18 09:31 Dose: 0.4 mg - Labs Labs: 04/18/18 05:40 04/18/18 05:40 - Extremities Exam Additional comments: Dressing changed. +ROM ankle/toes, sensation intact +DP/PT pulses calves osft NT neg homans +DP pulse Assessment and Plan (1) Osteoarthritis of left hip Assessment & Plan: POD#2 s/p THR VTE proph dulcolax PT/OT ortho stable d/w Dr. Lopez, agrees with above Status: Acute
[2018-04-19] MEDS: Oxycodone/Acetaminophen 5/325 mg Tab PO PRN (06:47)
[2018-04-19] MEDS: Insulin Lispro (humaLOG) 100 Units/ml Inj SC SCH ×3 (06:48→18:01)
[2018-04-19] MEDS ORDERED: Oxycodone/Acetaminophen 5/325 mg Tab PO ONE (08:06)
[2018-04-19 08:31] VITALS: BP 136/75; PULSE 92; TEMP 97.8; O2SAT 100
[2018-04-19] MEDS: Enoxaparin 40 mg Syringe SC SCH (08:33)
[2018-04-19] MEDS: GlipiZIDE 10 mg SR Tab PO SCH (08:35)
[2018-04-19] MEDS ORDERED: Naloxone 0.4 mg/ml Inj (Adult) ONE ×2 (14:42→14:52)
[2018-04-19 15:05] LABS: ABG ALLEN TEST YES; ARTERIAL BLOOD GAS HCO3 25.6 mmol/L (21-28); ARTERIAL BLOOD GAS HEMOGLOBIN 12.6 g/dL (11.7-17.4); ARTERIAL BLOOD GAS O2 CONTENT 16.7 ML/dL (15-23); ARTERIAL BLOOD GAS PCO2 30 mm/Hg (35-45); ARTERIAL BLOOD GAS PO2 78 mm/Hg (80-100); ARTERIAL BLOOD GAS TCO2 24.3 mmol/L (22-28)
--- NOTE | 2018-04-19 15:05 | PCM.RRT ---
<Rosalie Carrington - Last Filed: 04/19/18 15:25> TECHNICAL IMPLEMENTATION LEAD Nurse Assessment - Situation TECHNICAL IMPLEMENTATION LEAD Responder Arrival Time: 14:50 Location: TCU Room Number: 712 TECHNICAL IMPLEMENTATION LEAD Reason for Call: Change in Mental Status TECHNICAL IMPLEMENTATION LEAD Called By: RN - Diagnostic Test Ordered EKG: Yes CT Scan: Yes (Non-contrast) - Stat Labs Ordered TECHNICAL IMPLEMENTATION LEAD Stat Labs Ordered: CBC, BMP, TROPONIN (ABG stat, magnesium and phosphorus ) I.Reason for TECHNICAL IMPLEMENTATION LEAD - A) Acute Change in Patient: (Select all that apply): Acute change in mental status Subjective: TECHNICAL IMPLEMENTATION LEAD: S: Patient was sitting and found lethargic and AMS by RN. Percocet was given 06:47 am. O: Vital signs: 111/56 ; HR: 86 ; O2 Sat: 100%. Notable on physical exam: lethargic, pinpoint pupils. Patient not alert or oriented. Needed assistance to bed as he could not follow commands or stand on his own. Glucose noted to be at 251. Interventions: Narcane 0.4mg given twice. Labs ordered: CMP, magnesium, phosphorus, ABG stat, EKG, CT head without contrast, troponins, drug toxicology in serum. A: 72 yo M with history of DM2, HTN, HLD s/p left hip replacement, TECHNICAL IMPLEMENTATION LEAD was called due to lethargy and AMS. Plan: - Transfer patient to Emergency department to perform CT head without contrast. - F/U: CMP, Troponins, drug toxicology, ABG. TECHNICAL IMPLEMENTATION LEAD END: 2:59pm TECHNICAL IMPLEMENTATION LEAD leader: Dr. Rubio Residents involved in TECHNICAL IMPLEMENTATION LEAD: Dr. Claudio Pineda, PGY2; Dr. Rosalie Carrington, PGY1 - Neurological Status (Select all that apply): Lethargic (unable to follow commands) Other (Please specify): AMS - Respiratory Oxygen Delivery Method: Room Air - Constitutional Additional Comments: Lethargic - Eyes Additional Comments: Pinpoint pupils on exam. - Neurological Exam Neurological Exam: absent: Alert, Oriented x3 (Lethargic; unable to follow commands. ) <Richi Rubio - Last Filed: 04/19/18 15:58> Attending/Attestation - Attestation I have personally seen and examined this patient.: Yes I have fully participated in the care of the patient.: Yes I have reviewed all pertinent clinical information, including history, physical exam and plan: Yes Notes (Text): 04/19/18 15:53 Patient seen and examined with patient during TECHNICAL IMPLEMENTATION LEAD. Patient remained very lethargic with pin point pupils even after 2 doses of IM 0.4mg Narcan. Patient was brought down for emergency CT scan angio and transfer to ER for further management. RENE Diaz and Dr Lopez were informed. Dr Lopez requested consults with Godfrey Wood and Alesha. As per ER Dr Campos he also wanted neuro consult with Dr Nolen.
[2018-04-19] MEDS ORDERED: Naloxone HCl 2mg/2ml syr IVP ONE ×2 (15:10→15:11)
[2018-04-19 15:26] LABS: MEAN CELL VOLUME 90.4 fl (80.0-94.0); MEAN CORPUSCULAR HEMOGLOBIN 29.5 pg (27.0-31.0); MEAN CORPUSCULAR HGB CONC 32.7 g/dL (33.0-37.0); RBC 4.05 Mil/uL (4.40-5.90); RED CELL DISTRIBUTION WIDTH 13.7 % (11.5-14.5); WHITE BLOOD COUNT 13.2 K/uL (4.8-10.8)
[2018-04-19 15:32] LABS: ALB/GLOB RATIO 0.9 (1.0-2.1); ALBUMIN 3.4 g/dL (3.5-5.0); CALCIUM 8.7 mg/dL (8.4-10.2)
[2018-04-19 15:41] LABS: TROPONIN I 0.027 ng/mL (0.00-0.120)
--- NOTE | 2018-04-19 16:46 | CP.PCM.DIS ---
Provider - Provider Date of Admission: 04/17/18 16:24 Attending physician: Cedric Aquino MD Consults: Dr Lopez Time Spent in preparation of Discharge (in minutes): 30 Diagnosis - Discharge Diagnosis (1) Altered mental status Status: Acute Comment: patient transferred to ER for further work ups and management. CT angio of brain pending (2) Status post total hip replacement, left Status: Acute Comment: 3rd day post op. Orthopedist advised no narcotics at the moment (3) DM2 (diabetes mellitus, type 2) Status: Chronic Comment: BS relatively uncontrolled. continue Glucotrol XL (4) HTN (hypertension) Status: Acute Comment: BP controlled. continue Losartan and Metoprolol Hospital Course - Lab Results Lab Results: Most Recent Lab Values WBC 13.2 K/uL (4.8-10.8) H 04/19/18 15:00 RBC 4.05 Mil/uL (4.40-5.90) L 04/19/18 15:00 Hgb 12.0 g/dL (12.0-18.0) 04/19/18 15:00 Hct 36.6 % (35.0-51.0) 04/19/18 15:00 MCV 90.4 fl (80.0-94.0) 04/19/18 15:00 MCH 29.5 pg (27.0-31.0) 04/19/18 15:00 MCHC 32.7 g/dL (33.0-37.0) L 04/19/18 15:00 RDW 13.7 % (11.5-14.5) 04/19/18 15:00 Plt Count 189 K/uL (130-400) 04/19/18 15:00 MPV 9.1 fl (7.2-11.7) 04/18/18 05:40 Neut % (Auto) 86.4 % (50.0-75.0) H 04/18/18 05:40 Lymph % (Auto) 5.5 % (20.0-40.0) L 04/18/18 05:40 [place] % (Auto) 7.3 % (0.0-10.0) 04/18/18 05:40 Eos % (Auto) 0.3 % (0.0-4.0) 04/18/18 05:40 Baso % (Auto) 0.5 % (0.0-2.0) 04/18/18 05:40 Neut # (Auto) 14.3 K/uL (1.8-7.0) H 04/18/18 05:40 Lymph # (Auto) 0.9 K/uL (1.0-4.3) L 04/18/18 05:40 [place] # (Auto) 1.2 K/uL (0.0-0.8) H 04/18/18 05:40 Eos # (Auto) 0.0 K/uL (0.0-0.7) 04/18/18 05:40 Baso # (Auto) 0.1 K/uL (0.0-0.2) 04/18/18 05:40 Neutrophils % (Manual) 85 % (42-75) H 04/18/18 05:40 Lymphocytes % (Manual) 8 % (20-50) L 04/18/18 05:40 Monocytes % (Manual) 7 % (0-10) 04/18/18 05:40 Platelet Estimate Normal (NORMAL) 04/18/18 05:40 Anisocytosis (manual) Slight 04/18/18 05:40 pCO2 30 mm/Hg (35-45) L 04/19/18 14:46 pO2 78 mm/Hg (80-100) L 04/19/18 14:46 HCO3 25.6 mmol/L (21-28) 04/19/18 14:46 ABG pH 7.50 (7.35-7.45) H 04/19/18 14:46 ABG Total CO2 24.3 mmol/L (22-28) 04/19/18 14:46 ABG O2 Saturation 98.0 % (95-98) 04/19/18 14:46 ABG O2 Content 16.7 ML/dL (15-23) 04/19/18 14:46 ABG Base Excess 1.0 mmol/L (-2.0-3.0) 04/19/18 14:46 ABG Hemoglobin 12.6 g/dL (11.7-17.4) 04/19/18 14:46 ABG Carboxyhemoglobin 2.2 % (0.5-1.5) H 04/19/18 14:46 POC ABG HHb (Measured) 1.9 % (0.0-5.0) 04/19/18 14:46 ABG Methemoglobin 1.8 % (0.0-3.0) 04/19/18 14:46 ABG O2 Capacity 17.0 mL/dL (16-24) 04/19/18 14:46 Mehrdad Test Yes 04/19/18 14:46 A-a O2 Difference 34.0 mm/Hg 04/19/18 14:46 Hgb O2 Saturation 94.2 % (95.0-98.0) L 04/19/18 14:46 Vent Mode Ra 04/19/18 14:46 FiO2 21.0 % 04/19/18 14:46 Sodium 132 mmol/l (132-148) 04/19/18 15:00 Potassium 3.8 MMOL/L (3.6-5.0) 04/19/18 15:00 Chloride 96 mmol/L (98-107) L 04/19/18 15:00 Carbon Dioxide 30 mmol/L (22-30) 04/19/18 15:00 Anion Gap 10 (10-20) 04/19/18 15:00 BUN 23 mg/dl (9-20) H 04/19/18 15:00 Creatinine 1.6 mg/dl (0.8-1.5) H 04/19/18 15:00 Est GFR ( Amer) 52 04/19/18 15:00 Est GFR (Non-Af Amer) 43 04/19/18 15:00 POC Glucose (mg/dL) 251 mg/dL (65-110) H 04/19/18 14:36 Random Glucose 243 mg/dL (75-110) H 04/19/18 15:00 Calcium 8.7 mg/dL (8.4-10.2) 04/19/18 15:00 Phosphorus 1.6 mg/dl (2.5-4.5) L 04/19/18 15:00 Magnesium 2.0 MG/DL (1.6-2.3) 04/19/18 15:00 Total Bilirubin 1.0 mg/dl (0.2-1.3) 04/19/18 15:00 AST 82 U/L (17-59) H 04/19/18 15:00 ALT 57 U/L (21-72) 04/19/18 15:00 Alkaline Phosphatase 84 U/L (38-126) 04/19/18 15:00 Troponin I 0.0270 ng/mL (0.00-0.120) 04/19/18 15:00 Total Protein 6.9 G/DL (6.3-8.2) 04/19/18 15:00 Albumin 3.4 g/dL (3.5-5.0) L 04/19/18 15:00 Globulin 3.6 gm/dL (2.2-3.9) 04/19/18 15:00 Albumin/Globulin Ratio 0.9 (1.0-2.1) L 04/19/18 15:00 - Hospital Course Hospital Course: 72 yo male with history of DM2, HTN, HLD and recent left THR was admitted to TCU on 04/17/18 for therapy. Today patient sat on his chair after therapy and fell asleep. After sleeping on the chair for a little while, vigorous attempt to wake him up failed. Vital signs were stable and accucheck was above 200mg%. FACE WORKER was called and patient sent for emergency CT scan of the brain. He was also transferred to ER for further management and work ups. Discharge Exam - Head Exam Head Exam: ATRAUMATIC, NORMOCEPHALIC - Eye Exam Eye Exam: absent: Scleral icterus - ENT Exam ENT Exam: Mucous Membranes Moist - Respiratory Exam Respiratory Exam: absent: Rales, Rhonchi, Wheezes, Respiratory Distress - Cardiovascular Exam Cardiovascular Exam: REGULAR RHYTHM, +S1, +S2 - GI/Abdominal Exam GI & Abdominal Exam: Soft. absent: Tenderness - Rectal Exam Rectal Exam: Deferred - Neurological Exam Neurological exam: Altered - Skin Skin Exam: Dry, Intact Discharge Plan - Follow Up Plan Condition: GOOD Disposition: Trans to Other Acute Care Hosp
== END 2018-04-19 15:00 | disposition short-term general hospital (02) | DRG 561 ==
LOC: H.TCU 16:24
PROVIDERS: ADMIT Hospitalist; ATTEND Hospitalist
PROC: F07M6FZ Therapeutic Exercise Treatment of Musculoskeletal System - Whole Body using Assistive, Adaptive, Supportive or Protective Equipment (ICD-10-PCS; principal; 2018-04-17)
DX: Z47.1 Aftercare following joint replacement surgery (principal); Z96.642 Presence of left artificial hip joint; Z86.19 Personal history of other infectious and parasitic diseases; F12.90 Cannabis use, unspecified, uncomplicated; E11.9 Type 2 diabetes mellitus without complications; E78.5 Hyperlipidemia, unspecified; I10 Essential (primary) hypertension; M16.12 Unilateral primary osteoarthritis, left hip; Z87.891 Personal history of nicotine dependence; Z90.49 Acquired absence of other specified parts of digestive tract; R41.82 Altered mental status, unspecified

== ENCOUNTER 2018-04-20 13:43 | Inpatient (IN) | payer OTHER, BC ==
[2018-04-20 14:45] VITALS: BMI 34.6
[2018-04-20] MEDS: Insulin Lispro (humaLOG) 100 Units/ml Inj SC SCH (22:35)
[2018-04-21] MEDS: Insulin Lispro (humaLOG) 100 Units/ml Inj SC SCH ×4 (06:56→22:44)
[2018-04-21 07:03] LABS: BASO # 0.1 K/uL (0.0-0.2); BASO % 0.6 % (0.0-2.0); EOS # 0.2 K/uL (0.0-0.7); EOS % 2.2 % (0.0-4.0); HEMOGLOBIN 11.4 g/dL (12.0-18.0); LYMPH # 0.9 K/uL (1.0-4.3); LYMPH % 9.1 % (20.0-40.0); MEAN CELL VOLUME 89.5 fl (80.0-94.0); MEAN CORPUSCULAR HEMOGLOBIN 29.7 pg (27.0-31.0); MEAN CORPUSCULAR HGB CONC 33.1 g/dL (33.0-37.0); MEAN PLATELET VOLUME 8.8 fl (7.2-11.7); MONO # 1.2 K/uL (0.0-0.8); MONO % 12.3 % (0.0-10.0); NEUT # 7.3 K/uL (1.8-7.0); NEUT % 75.8 % (50.0-75.0); NRBC % 0.1 % (0.0-0.0); PLATELET COUNT 232 K/uL (130-400); RBC 3.86 Mil/uL (4.40-5.90); RED CELL DISTRIBUTION WIDTH 13.6 % (11.5-14.5); WHITE BLOOD COUNT 9.7 K/uL (4.8-10.8)
[2018-04-21 07:24] LABS: BLOOD UREA NITROGEN 16 mg/dl (9-20); CALCIUM 8.3 mg/dL (8.4-10.2); GFR NON-AFRICAN AMERICAN > 60
--- NOTE | 2018-04-21 08:05 | CP.PCM.PN ---
Subjective - Date & Time of Evaluation Date of Evaluation: 04/21/18 Time of Evaluation: 08:04 - Subjective Subjective: Patient seen and examined at bedside comfortable. Pain well controlled. No narcotics on board. ELECTRONICS ENGINEERING TECHNICIAN called two days ago due to altered mental status/somnolence. Found to have positional hypoxia. Denies any CP/SOB/N/V/D/fever/dizziness/lethargy. Objective - Vital Signs/Intake and Output Vital Signs (last 24 hours): Temp Pulse Resp BP Pulse Ox 98.8 F 106 H 20 146/98 H 97 04/21/18 07:54 04/21/18 07:54 04/21/18 07:54 04/21/18 07:54 04/21/18 07:54 - Medications Medications: Current Medications Acetaminophen (Tylenol 325mg Tab) 650 mg PO Q6 [facility] Last Admin: 04/21/18 04:18 Dose: Not Given Chlorthalidone (Hygroton) 25 mg PO DAILY [facility] Clonidine HCl (Catapres) 0.3 mg PO DAILY [facility] Docusate Sodium (Colace) 100 mg PO BID [facility] Last Admin: 04/20/18 17:12 Dose: 100 mg Ezetimibe (Zetia) 10 mg PO DAILY [facility] Enoxaparin Sodium (Lovenox) 40 mg SC DAILY [facility]; Protocol Ferrous Sulfate (Feosol) 325 mg PO BID [facility] Last Admin: 04/20/18 17:12 Dose: 325 mg Glipizide (Glucotrol Xl) 10 mg PO DAILY [facility] Home Med (Quinine Sulfate [Qualaquin]) 324 mg PO DAILY [facility] Insulin Human Lispro (Humalog) 0 units SC [facility]; Protocol Last Admin: 04/21/18 06:56 Dose: 1 unit Ketorolac Tromethamine (Toradol) 10 mg PO Q6 PRN PRN Reason: Pain, moderate (4-7) Losartan Potassium (Cozaar) 100 mg PO DAILY [facility] Metoprolol Tartrate (Lopressor) 50 mg PO DAILY [facility] Pantoprazole Sodium (Protonix Ec Tab) 40 mg PO DAILY [facility] Tamsulosin HCl (Flomax) 0.4 mg PO DAILY [facility] - Labs Labs: 04/21/18 05:50 04/21/18 05:50 - Extremities Exam Additional comments: L hip: dressings CDI, mild swelling sensation diminished but intact SP/DP/TN bilaterally (baseline) motor intact EHL/FHL/TA/G pedal pulses intact calves soft NT b/l Assessment and Plan (1) Status post total hip replacement, left Assessment & Plan: POD#5 s/p L POOJA doing well -pain control, no narcotics -PT/OT FWB -DVT ppx -orthopedically stable -above d/w Dr. Lopez in agreement Status: Acute
[2018-04-21 08:18] LABS: ANISOCYTOSIS SLIGHT; BANDS 2 % (0-2); BASOPHIL 1 % (0-2); EOSINOPHIL 2 % (0-7); LYMPHOCYTE 9 % (20-50); MONOCYTE 11 % (0-10); NEUTROPHIL 75 % (42-75); PLATELET ESTIMATE NORMAL (NORMAL); TOTAL CELLS COUNTED 100; TOXIC GRANULATION PRESENT
[2018-04-21] MEDS: GlipiZIDE 10 mg SR Tab PO SCH (09:14)
[2018-04-21] MEDS: Enoxaparin 40 mg Syringe SC SCH (09:15)
[2018-04-21] MEDS: QUININE SULFATE 324 MG PO SCH (09:16)
[2018-04-21] MEDS: Pantoprazole 40 mg EC Tab PO SCH (09:16)
--- NOTE | 2018-04-21 10:10 | CP.PCM.CON ---
History of Present Illness - History of Present Illness History of Present Illness: THE PATIENT IS A 72 YEAR OLD MALE WHO UNDERWENT A LEFT THR LAST WEEK FOR SEVERE OA. HE ALSO HAS A HISTORY OF HYPERTENSION, HYPERLIPIDEMIA AND TYPE 2 DM. HE WAS IN TCU FOR TAMIKO AND ON 04/19/18 HAD AN ASSISTANT PROFESSOR OF DRAMA CALLED FOR UNRESPONSIVENESS AND HE WAS SENT TO THE ER AND THEN TO N. HE DID WELL AND THE UNRESPONSIVENESS IS BELIEVED TO HAVE BEEN FROM OPIATE PAIN MEDICATIONS. HE IS NOW BACK IN TCU AND I HAVE BEEN ASKED TO SEE HIM. HE DENIES CHEST PAIN, PALPITATIONS OR SOB. Past Patient History - Infectious Disease Hx of Infectious Diseases: None - Tetanus Immunizations Tetanus Immunization: Unknown - Past Medical History & Family History Past Medical History?: Yes - Past Social History Smoking Status: Former Smoker - CARDIAC Hx Hypertension: Yes - PULMONARY Hx Respiratory Disorders: No - NEUROLOGICAL Hx Neurological Disorder: No - HEENT Hx HEENT Problems: No - RENAL Hx Chronic Kidney Disease: No - ENDOCRINE/METABOLIC Hx Diabetes Mellitus Type 2: Yes - HEMATOLOGICAL/ONCOLOGICAL Hx AIDS: No Hx Human Immunodeficiency Virus (HIV): No - INTEGUMENTARY Hx Dermatological Problems: No - MUSCULOSKELETAL/RHEUMATOLOGICAL Hx Arthritis: Yes Hx Falls: Yes - GASTROINTESTINAL Hx Gastrointestinal Disorders: No - GENITOURINARY/GYNECOLOGICAL Hx Genitourinary Disorders: No - PSYCHIATRIC Hx Substance Use: Yes - SURGICAL HISTORY Hx Cholecystectomy: Yes Other/Comment: left hip surgery - ANESTHESIA Hx Anesthesia: Yes Hx Anesthesia Reactions: No Meds Allergies/Adverse Reactions: Allergies Allergy/AdvReac Type Severity Reaction Status Date / Time aspirin Allergy RASH Verified 04/20/18 14:51 - Medications Medications: Current Medications Acetaminophen (Tylenol 325mg Tab) 650 mg PO Q6 COUNT INCLUDES THE [facility] Last Admin: 04/21/18 09:25 Dose: Not Given Chlorthalidone (Hygroton) 25 mg PO DAILY COUNT INCLUDES THE [facility] Last Admin: 04/21/18 09:14 Dose: 25 mg Clonidine HCl (Catapres) 0.3 mg PO DAILY COUNT INCLUDES THE [facility] Last Admin: 04/21/18 09:17 Dose: 0.3 mg Docusate Sodium (Colace) 100 mg PO BID COUNT INCLUDES THE [facility] Last Admin: 04/21/18 09:08 Dose: 100 mg Ezetimibe (Zetia) 10 mg PO DAILY COUNT INCLUDES THE [facility] Last Admin: 04/21/18 09:17 Dose: 10 mg Enoxaparin Sodium (Lovenox) 40 mg SC DAILY COUNT INCLUDES THE [facility]; Protocol Last Admin: 04/21/18 09:15 Dose: 40 mg Ferrous Sulfate (Feosol) 325 mg PO BID COUNT INCLUDES THE [facility] Last Admin: 04/21/18 09:13 Dose: 325 mg Glipizide (Glucotrol Xl) 10 mg PO DAILY COUNT INCLUDES THE [facility] Last Admin: 04/21/18 09:14 Dose: 10 mg Home Med (Quinine Sulfate [Qualaquin]) 324 mg PO DAILY COUNT INCLUDES THE [facility] Last Admin: 04/21/18 09:16 Dose: 324 mg Insulin Human Lispro (Humalog) 0 units SC [facility] COUNT INCLUDES THE [facility]; Protocol Last Admin: 04/21/18 06:56 Dose: 1 unit Ketorolac Tromethamine (Toradol) 10 mg PO Q6 PRN PRN Reason: Pain, moderate (4-7) Losartan Potassium (Cozaar) 100 mg PO DAILY COUNT INCLUDES [facility] Last Admin: 04/21/18 09:12 Dose: 100 mg Metoprolol Tartrate (Lopressor) 50 mg PO DAILY COUNT INCLUDES THE [facility] Last Admin: 04/21/18 09:15 Dose: 50 mg Pantoprazole Sodium (Protonix Ec Tab) 40 mg PO DAILY COUNT INCLUDES THE [facility] Last Admin: 04/21/18 09:16 Dose: 40 mg Tamsulosin HCl (Flomax) 0.4 mg PO DAILY COUNT INCLUDES THE [facility] Last Admin: 04/21/18 09:13 Dose: 0.4 mg Physical Exam - Respiratory Exam Respiratory Exam: Clear to Auscultation Bilateral - Cardiovascular Exam Cardiovascular Exam: REGULAR RHYTHM, +S1, +S2 - Extremities Exam Additional comments: NO SIGNIFICANT LE EDEMA Results - Vital Signs Recent Vital Signs: Last Vital Signs Temp 98.8 F 04/21/18 07:54 Pulse 100 H 04/21/18 09:17 Resp 20 04/21/18 07:54 BP 169/101 H 04/21/18 09:17 Pulse Ox 97 04/21/18 07:54 - Labs Result Diagrams: 04/21/18 05:50 04/21/18 05:50 Labs: Laboratory Results - last 24 hr 04/20/18 04/21/18 04/21/18 21:02 05:49 05:50 WBC 9.7 RBC 3.86 L Hgb 11.4 L Hct 34.5 L MCV 89.5 MCH 29.7 MCHC 33.1 RDW 13.6 Plt Count 232 MPV 8.8 Neut % (Auto) 75.8 H Lymph % (Auto) 9.1 L [place] % (Auto) 12.3 H Eos % (Auto) 2.2 Baso % (Auto) 0.6 Neut # (Auto) 7.3 H Lymph # (Auto) 0.9 L [place] # (Auto) 1.2 H Eos # (Auto) 0.2 Baso # (Auto) 0.1 Neutrophils % (Manual) 75 Band Neutrophils % 2 Lymphocytes % (Manual) 9 L Monocytes % (Manual) 11 H Eosinophils % (Manual) 2 Basophils % (Manual) 1 Toxic Granulation Present Platelet Estimate Normal Anisocytosis (manual) Slight Sodium Potassium Chloride Carbon Dioxide Anion Gap BUN Creatinine Est GFR ( Amer) Est GFR (Non-Af Amer) POC Glucose (mg/dL) 174 H 189 H Random Glucose Calcium 04/21/18 05:50 WBC RBC Hgb Hct MCV MCH MCHC RDW Plt Count MPV Neut % (Auto) Lymph % (Auto) [place] % (Auto) Eos % (Auto) Baso % (Auto) Neut # (Auto) Lymph # (Auto) [place] # (Auto) Eos # (Auto) Baso # (Auto) Neutrophils % (Manual) Band Neutrophils % Lymphocytes % (Manual) Monocytes % (Manual) Eosinophils % (Manual) Basophils % (Manual) Toxic Granulation Platelet Estimate Anisocytosis (manual) Sodium 135 Potassium 3.6 Chloride 100 Carbon Dioxide 27 Anion Gap 12 BUN 16 Creatinine 0.8 Est GFR ( Amer) > 60 Est GFR (Non-Af Amer) > 60 POC Glucose (mg/dL) Random Glucose 212 H Calcium 8.3 L Assessment & Plan - Assessment and Plan (Free Text) Assessment: LEFT THR HYPERTENSION HYPERLIPIDEMIA TYPE 2 DM Plan: CONTINUE CLONIDINE, METOPROLOL, LOSARTAN, ZETIA, GLUCOTROL AND LOVENOX CONTINUE SUBACUTE REHAB
--- NOTE | 2018-04-21 10:51 | CP.PCM.HP ---
Addendum entered and electronically signed by Cedric Aquino MD 04/21/18 15:59: Patient seen and evaluated . All chart and clinical data reviewed. Case discussed with resident . Agree with assessment and plan. patient is awake alert oriented x3. Participating with PT pain to left hip is controlled Continue PT Original Note: History of Present Illness - History of Present Illness History of Present Illness: 72 y/o male PMHx of DM2, HTN, HLD and recent left THR on 04/16/18 was found obtunded on 04/19/18 after receiving 2 doses of Percocet. Patient was administered two doses of Narcan 0.4 mg IM, however, patient did not wake up. [employer] WRITER was called on the patient and patient was sent to the ED. A third dose of Narcan 0.4 mg IV was given in the ED, and that woke up the patient. CT scan of the brain was negative for infarct or bleed. Patient presently fully awake without neurological deficit. Patient was in Telemetry an then transferred to TCU again. As per neurolohy consult with Dr Nolen, ECHO and EEG were recommended after patient is transferred to TCU.As per Dr. Wood, patient was advised to be on high flow oxygen instead of CPAP. Patient denies N/V/F/SOB/CP. Present on Admission - Present on Admission Any Indicators Present on Admission: No History of DVT/PE: No History of Uncontrolled Diabetes: No Urinary Catheter: No Decubitus Ulcer Present: No Review of Systems - Constitutional Constitutional: absent: Fever, Headache - EENT Eyes: absent: Blurred Vision, Change in Vision, Loss of Vision - Cardiovascular Cardiovascular: absent: Chest Pain, Chest Pain at Rest, Chest Pain with Activity, Dyspnea on Exertion, Pedal Edema - Respiratory Respiratory: absent: Dyspnea - Gastrointestinal Gastrointestinal: absent: Abdominal Pain, Nausea, Vomiting - Integumentary Integumentary: absent: Rash - Neurological Neurological: absent: Dizziness, Numbness, Tingling Past Patient History - Infectious Disease Hx of Infectious Diseases: None - Tetanus Immunizations Tetanus Immunization: Unknown - Past Medical History & Family History Past Medical History?: Yes - Past Social History Smoking Status: Former Smoker Chewing Tobacco Use: No Cigar Use: No Alcohol: > 2 Drinks/Day Home Situation {Lives}: With Family - CARDIAC Hx Hypertension: Yes - PULMONARY Hx Respiratory Disorders: No - NEUROLOGICAL Hx Neurological Disorder: No - HEENT Hx HEENT Problems: No - RENAL Hx Chronic Kidney Disease: No - ENDOCRINE/METABOLIC Hx Diabetes Mellitus Type 2: Yes - HEMATOLOGICAL/ONCOLOGICAL Hx AIDS: No Hx Human Immunodeficiency Virus (HIV): No - INTEGUMENTARY Hx Dermatological Problems: No - MUSCULOSKELETAL/RHEUMATOLOGICAL Hx Arthritis: Yes Hx Falls: Yes - GASTROINTESTINAL Hx Gastrointestinal Disorders: No - GENITOURINARY/GYNECOLOGICAL Hx Genitourinary Disorders: No - PSYCHIATRIC Hx Substance Use: Yes - SURGICAL HISTORY Hx Cholecystectomy: Yes Other/Comment: left hip surgery - ANESTHESIA Hx Anesthesia: Yes Hx Anesthesia Reactions: No Meds Allergies/Adverse Reactions: Allergies Allergy/AdvReac Type Severity Reaction Status Date / Time aspirin Allergy RASH Verified 04/20/18 14:51 Physical Exam - Constitutional Appears: Non-toxic, No Acute Distress - Head Exam Head Exam: ATRAUMATIC, NORMOCEPHALIC - Eye Exam Eye Exam: PERRL - ENT Exam ENT Exam: Mucous Membranes Moist - Neck Exam Neck exam: Positive for: Tenderness. Negative for: Lymphadenopathy - Respiratory Exam Respiratory Exam: Clear to Auscultation Bilateral. absent: Rales, Rhonchi, Wheezes - Cardiovascular Exam Cardiovascular Exam: REGULAR RHYTHM, +S1, +S2 - GI/Abdominal Exam GI & Abdominal Exam: Normal Bowel Sounds, Soft. absent: Distended, Firm, Guarding - Psychiatric Exam Psychiatric exam: Normal Affect, Normal Mood - Skin Skin Exam: Normal Color Results - Vital Signs Recent Vital Signs: Last Vital Signs Temp 98.8 F 04/21/18 07:54 Pulse 100 H 04/21/18 09:17 Resp 20 04/21/18 07:54 BP 169/101 H 04/21/18 09:17 Pulse Ox 97 04/21/18 07:54 - Labs Result Diagrams: 04/21/18 05:50 04/21/18 05:50 Labs: Laboratory Results - last 24 hr 04/20/18 04/21/18 04/21/18 21:02 05:49 05:50 WBC 9.7 RBC 3.86 L Hgb 11.4 L Hct 34.5 L MCV 89.5 MCH 29.7 MCHC 33.1 RDW 13.6 Plt Count 232 MPV 8.8 Neut % (Auto) 75.8 H Lymph % (Auto) 9.1 L [place] % (Auto) 12.3 H Eos % (Auto) 2.2 Baso % (Auto) 0.6 Neut # (Auto) 7.3 H Lymph # (Auto) 0.9 L [place] # (Auto) 1.2 H Eos # (Auto) 0.2 Baso # (Auto) 0.1 Neutrophils % (Manual) 75 Band Neutrophils % 2 Lymphocytes % (Manual) 9 L Monocytes % (Manual) 11 H Eosinophils % (Manual) 2 Basophils % (Manual) 1 Toxic Granulation Present Platelet Estimate Normal Anisocytosis (manual) Slight Sodium Potassium Chloride Carbon Dioxide Anion Gap BUN Creatinine Est GFR ( Amer) Est GFR (Non-Af Amer) POC Glucose (mg/dL) 174 H 189 H Random Glucose Calcium 04/21/18 05:50 WBC RBC Hgb Hct MCV MCH MCHC RDW Plt Count MPV Neut % (Auto) Lymph % (Auto) [place] % (Auto) Eos % (Auto) Baso % (Auto) Neut # (Auto) Lymph # (Auto) [place] # (Auto) Eos # (Auto) Baso # (Auto) Neutrophils % (Manual) Band Neutrophils % Lymphocytes % (Manual) Monocytes % (Manual) Eosinophils % (Manual) Basophils % (Manual) Toxic Granulation Platelet Estimate Anisocytosis (manual) Sodium 135 Potassium 3.6 Chloride 100 Carbon Dioxide 27 Anion Gap 12 BUN 16 Creatinine 0.8 Est GFR ( Amer) > 60 Est GFR (Non-Af Amer) > 60 POC Glucose (mg/dL) Random Glucose 212 H Calcium 8.3 L Assessment & Plan - Assessment and Plan (Free Text) Assessment: 72 y/o male with left hip arthritis 5 days s/p total hip replacement with Dr. Lopez and episode of unresponsiveness likely Narcotic medication induced Plan: Altered Mental Status likely secondary to Narcotic overdose - Discontinue Narcotic pain medication - Toradol 10 mg PO Q6 PRN - As per Neuro, Dr. Nolen- patient is unable to obtain MRI due to recent surge ry, patient will obtain EEG and echocardiogram when possible. Patient to continue aspirin 81 mg daily. Avoid flexed neck position and monitor frequently with Q6 neuro-checks Obstructive Sleep Apnea/ COPD - High Flow Nasal Cannula - As per Pulmonology, Dr. Wood- Patient will need to be worked up as an outpatient after he recovers from the present surgery, Avoidance of sedating medications inclusive of narcotic analgesics is recommended Left Hip Arthritis s/p 5 days Left total hip Replacement - Patient tolerated procedure well - Patient transferred to TCU for further post-operative care - Patient to continue with Physical Therapy in TCU - Pain Control with Toradol, patient to avoid narcotic medications at this time Type II Diabetes - controlled, chronic - Glipizide 10 mg PO [place] - HbA1c (03/26/18) 7.1% Hypertension - Losartan 100 mg PO DAILY - Metoprolol 50 mg BID - Zetia 10 mg PO - Chlorthalidone 25 mg pO - Clonidine 0.3 mg Hyperlipidemia - Zetia 10 mg PO DVT Prophylaxis - as per orthopedic surgery, post-op - Date & Time Date: 04/21/18 Time: 12:18
--- NOTE | 2018-04-21 11:19 | CP.PCM.CON ---
History of Present Illness - History of Present Illness History of Present Illness: Asked to evaluate this 72-year-old -[place] male who underwent left hip arthroplasty. He had been in rehabilitation when he developed an episode of unresponsiveness which resulted in transfer to the emergency department and an overnight stay on acute medicine. Upon review of the medical record and intervene the patient there is question as to a combination of medication effect as well as underlying suspected JIM and COPD. He does relate a history of nonrestorative sleep and according to his he does snore loudly and has episodes of apparent apnea during the night. While on rehabilitation he was given Thorazine earlier that morning because of hiccups and subsequently received Percocet 2 doses after which she was found seated in the chair and initially unresponsive. When transferred to the emergency department he did respond to the use of Narcan and was admitted overnight in the acute medicine where there were no further problems. He is a former cigarette smoker, but denies any prior pulmonary disease. He does admit to some dyspnea on exertion and as mentioned above nonrestorative sleep. Past Patient History - Infectious Disease Hx of Infectious Diseases: None - Tetanus Immunizations Tetanus Immunization: Unknown - Past Medical History & Family History Past Medical History?: Yes - Past Social History Smoking Status: Former Smoker - CARDIAC Hx Hypertension: Yes - PULMONARY Hx Respiratory Disorders: No - NEUROLOGICAL Hx Neurological Disorder: No - HEENT Hx HEENT Problems: No - RENAL Hx Chronic Kidney Disease: No - ENDOCRINE/METABOLIC Hx Diabetes Mellitus Type 2: Yes - HEMATOLOGICAL/ONCOLOGICAL Hx AIDS: No Hx Human Immunodeficiency Virus (HIV): No - INTEGUMENTARY Hx Dermatological Problems: No - MUSCULOSKELETAL/RHEUMATOLOGICAL Hx Arthritis: Yes Hx Falls: Yes - GASTROINTESTINAL Hx Gastrointestinal Disorders: No - GENITOURINARY/GYNECOLOGICAL Hx Genitourinary Disorders: No - PSYCHIATRIC Hx Substance Use: Yes - SURGICAL HISTORY Hx Cholecystectomy: Yes Other/Comment: left hip surgery - ANESTHESIA Hx Anesthesia: Yes Hx Anesthesia Reactions: No Meds Allergies/Adverse Reactions: Allergies Allergy/AdvReac Type Severity Reaction Status Date / Time aspirin Allergy RASH Verified 04/20/18 14:51 - Medications Medications: Current Medications Acetaminophen (Tylenol 325mg Tab) 650 mg PO Q6 [facility] Last Admin: 04/21/18 09:25 Dose: Not Given Chlorthalidone (Hygroton) 25 mg PO DAILY [facility] Last Admin: 04/21/18 09:14 Dose: 25 mg Clonidine HCl (Catapres) 0.3 mg PO DAILY [facility] Last Admin: 04/21/18 09:17 Dose: 0.3 mg Docusate Sodium (Colace) 100 mg PO BID [facility] Last Admin: 04/21/18 09:08 Dose: 100 mg Ezetimibe (Zetia) 10 mg PO DAILY [facility] Last Admin: 04/21/18 09:17 Dose: 10 mg Enoxaparin Sodium (Lovenox) 40 mg SC DAILY [facility]; Protocol Last Admin: 04/21/18 09:15 Dose: 40 mg Ferrous Sulfate (Feosol) 325 mg PO BID [facility] Last Admin: 04/21/18 09:13 Dose: 325 mg Glipizide (Glucotrol Xl) 10 mg PO DAILY [facility] Last Admin: 04/21/18 09:14 Dose: 10 mg Home Med (Quinine Sulfate [Qualaquin]) 324 mg PO DAILY [facility] Last Admin: 04/21/18 09:16 Dose: 324 mg Insulin Human Lispro (Humalog) 0 units SC [facility]; Protocol Last Admin: 04/21/18 06:56 Dose: 1 unit Ketorolac Tromethamine (Toradol) 10 mg PO Q6 PRN PRN Reason: Pain, moderate (4-7) Losartan Potassium (Cozaar) 100 mg PO DAILY [facility] Last Admin: 04/21/18 09:12 Dose: 100 mg Metoprolol Tartrate (Lopressor) 50 mg PO DAILY [facility] Last Admin: 04/21/18 09:15 Dose: 50 mg Pantoprazole Sodium (Protonix Ec Tab) 40 mg PO DAILY [facility] Last Admin: 04/21/18 09:16 Dose: 40 mg Tamsulosin HCl (Flomax) 0.4 mg PO DAILY [facility] Last Admin: 04/21/18 09:13 Dose: 0.4 mg Physical Exam - Additional Findings Additional findings: On physical exam he is lying in bed awake and alert and in no distress. He is obese, with only trace dependent edema at the ankles bilaterally and no cyanosis. There is no palpable lymphadenopathy. Pharynx is pink and the mucous membranes are moist. The nares are patent bilaterally without bleeding or exudate. The neck is supple and trachea is midline. No palpable thyromegaly. Carotid impulse well felt bilaterally and without bruit. No dullness on percussion of the anterior chest wall. No subcutaneous emphysema. Breath sounds appear diminished equally in both lungs and there are only occasional rhonchi heard in the dependent zones of the lower lobes posteriorly. No audible wheezing is appreciated. Rare dry rales are heard posteriorly in the lower lobes as well. The heart sounds are distant and the rhythm is regular. The abdomen is obese, soft and nontender with normal bowel sounds. No apparent CVA tenderness. Results - Vital Signs Recent Vital Signs: Last Vital Signs Temp 98.8 F 04/21/18 07:54 Pulse 100 H 04/21/18 09:17 Resp 20 04/21/18 07:54 BP 169/101 H 04/21/18 09:17 Pulse Ox 97 04/21/18 07:54 - Labs Result Diagrams: 04/21/18 05:50 04/21/18 05:50 Labs: Laboratory Results - last 24 hr 04/20/18 04/21/18 04/21/18 21:02 05:49 05:50 WBC 9.7 RBC 3.86 L Hgb 11.4 L Hct 34.5 L MCV 89.5 MCH 29.7 MCHC 33.1 RDW 13.6 Plt Count 232 MPV 8.8 Neut % (Auto) 75.8 H Lymph % (Auto) 9.1 L [place] % (Auto) 12.3 H Eos % (Auto) 2.2 Baso % (Auto) 0.6 Neut # (Auto) 7.3 H Lymph # (Auto) 0.9 L [place] # (Auto) 1.2 H Eos # (Auto) 0.2 Baso # (Auto) 0.1 Neutrophils % (Manual) 75 Band Neutrophils % 2 Lymphocytes % (Manual) 9 L Monocytes % (Manual) 11 H Eosinophils % (Manual) 2 Basophils % (Manual) 1 Toxic Granulation Present Platelet Estimate Normal Anisocytosis (manual) Slight Sodium Potassium Chloride Carbon Dioxide Anion Gap BUN Creatinine Est GFR ( Amer) Est GFR (Non-Af Amer) POC Glucose (mg/dL) 174 H 189 H Random Glucose Calcium 04/21/18 05:50 WBC RBC Hgb Hct MCV MCH MCHC RDW Plt Count MPV Neut % (Auto) Lymph % (Auto) [place] % (Auto) Eos % (Auto) Baso % (Auto) Neut # (Auto) Lymph # (Auto) [place] # (Auto) Eos # (Auto) Baso # (Auto) Neutrophils % (Manual) Band Neutrophils % Lymphocytes % (Manual) Monocytes % (Manual) Eosinophils % (Manual) Basophils % (Manual) Toxic Granulation Platelet Estimate Anisocytosis (manual) Sodium 135 Potassium 3.6 Chloride 100 Carbon Dioxide 27 Anion Gap 12 BUN 16 Creatinine 0.8 Est GFR ( Amer) > 60 Est GFR (Non-Af Amer) > 60 POC Glucose (mg/dL) Random Glucose 212 H Calcium 8.3 L Assessment & Plan (1) JIM (obstructive sleep apnea) Status: Suspected Priority: High (2) COPD (chronic obstructive pulmonary disease) Status: Suspected Priority: High - Assessment and Plan (Free Text) Plan: Both of the above are suspected illnesses based on history of tobacco use and GALAVIZ as well as his 's description of snoring with what sounds like apneic episodes. He also admits to non-restorative sleep and daytime drowsiness. These conditions will need to be worked up as an outpatient after he recovers from the present surgery. Avoidance of sedating medications inclusive of narcotic analgesics is recommended. He agrees to use of HFNC at night to mimick the effect of nCPAP for the present time. - Date & Time Date: 04/21/18 Time: 11:18
--- NOTE | 2018-04-21 18:46 | CP.PCM.CON ---
History of Present Illness - History of Present Illness History of Present Illness: 72 year old male with left THR admitted to subacute rehab with diagnosis of OA, DM, Hyperlipidemia Review of Systems - Musculoskeletal Musculoskeletal: Muscle Weakness Past Patient History - Infectious Disease Hx of Infectious Diseases: None - Tetanus Immunizations Tetanus Immunization: Unknown - Past Medical History & Family History Past Medical History?: Yes - Past Social History Smoking Status: Former Smoker Chewing Tobacco Use: No Cigar Use: No Alcohol: > 2 Drinks/Day Home Situation {Lives}: With Family - CARDIAC Hx Hypertension: Yes - PULMONARY Hx Respiratory Disorders: No - NEUROLOGICAL Hx Neurological Disorder: No - HEENT Hx HEENT Problems: No - RENAL Hx Chronic Kidney Disease: No - ENDOCRINE/METABOLIC Hx Diabetes Mellitus Type 2: Yes - HEMATOLOGICAL/ONCOLOGICAL Hx AIDS: No Hx Human Immunodeficiency Virus (HIV): No - INTEGUMENTARY Hx Dermatological Problems: No - MUSCULOSKELETAL/RHEUMATOLOGICAL Hx Arthritis: Yes Hx Falls: Yes - GASTROINTESTINAL Hx Gastrointestinal Disorders: No - GENITOURINARY/GYNECOLOGICAL Hx Genitourinary Disorders: No - PSYCHIATRIC Hx Substance Use: Yes - SURGICAL HISTORY Hx Cholecystectomy: Yes Other/Comment: left hip surgery - ANESTHESIA Hx Anesthesia: Yes Hx Anesthesia Reactions: No Meds Allergies/Adverse Reactions: Allergies Allergy/AdvReac Type Severity Reaction Status Date / Time aspirin Allergy RASH Verified 04/20/18 14:51 - Medications Medications: Current Medications Acetaminophen (Tylenol 325mg Tab) 650 mg PO Q6 [facility] Last Admin: 04/21/18 16:53 Dose: Not Given Chlorthalidone (Hygroton) 25 mg PO DAILY [facility] Last Admin: 04/21/18 09:14 Dose: 25 mg Clonidine HCl (Catapres) 0.3 mg PO DAILY [facility] Last Admin: 04/21/18 09:17 Dose: 0.3 mg Docusate Sodium (Colace) 100 mg PO BID [facility] Last Admin: 04/21/18 16:50 Dose: 100 mg Ezetimibe (Zetia) 10 mg PO DAILY [facility] Last Admin: 04/21/18 09:17 Dose: 10 mg Enoxaparin Sodium (Lovenox) 40 mg SC DAILY [facility]; Protocol Last Admin: 04/21/18 09:15 Dose: 40 mg Ferrous Sulfate (Feosol) 325 mg PO BID [facility] Last Admin: 04/21/18 16:50 Dose: 325 mg Glipizide (Glucotrol Xl) 10 mg PO DAILY [facility] Last Admin: 04/21/18 09:14 Dose: 10 mg Home Med (Quinine Sulfate [Qualaquin]) 324 mg PO DAILY [facility] Last Admin: 04/21/18 09:16 Dose: 324 mg Insulin Human Lispro (Humalog) 0 units SC [facility]; Protocol Last Admin: 04/21/18 16:50 Dose: 2 unit Ketorolac Tromethamine (Toradol) 10 mg PO Q6 PRN PRN Reason: Pain, moderate (4-7) Last Admin: 04/21/18 11:37 Dose: 10 mg Losartan Potassium (Cozaar) 100 mg PO DAILY [facility] Last Admin: 04/21/18 09:12 Dose: 100 mg Metoprolol Tartrate (Lopressor) 50 mg PO DAILY [facility] Last Admin: 04/21/18 09:15 Dose: 50 mg Pantoprazole Sodium (Protonix Ec Tab) 40 mg PO DAILY [facility] Last Admin: 04/21/18 09:16 Dose: 40 mg Tamsulosin HCl (Flomax) 0.4 mg PO DAILY [facility] Last Admin: 04/21/18 09:13 Dose: 0.4 mg Physical Exam - Head Exam Head Exam: ATRAUMATIC, NORMAL INSPECTION, NORMOCEPHALIC - Eye Exam Eye Exam: EOMI, Normal appearance Pupil Exam: NORMAL ACCOMODATION, PERRL - ENT Exam ENT Exam: Mucous Membranes Moist, Normal Exam - Neck Exam Neck exam: Positive for: Normal Inspection - Respiratory Exam Respiratory Exam: Clear to Auscultation Bilateral, NORMAL BREATHING PATTERN - Cardiovascular Exam Cardiovascular Exam: REGULAR RHYTHM - GI/Abdominal Exam GI & Abdominal Exam: Normal Bowel Sounds - Rectal Exam Rectal Exam: NORMAL INSPECTION - Exam External exam: NORMAL EXTERNAL EXAM - Extremities Exam Extremities exam: Positive for: normal inspection - Back Exam Back exam: NORMAL INSPECTION - Neurological Exam Neurological exam: Alert, CN II-XII Intact Additional comments: left leg weakness - Psychiatric Exam Psychiatric exam: Normal Affect, Normal Mood - Skin Skin Exam: Dry, Normal Color, Warm Results - Vital Signs Recent Vital Signs: Last Vital Signs Temp 97.9 F 04/21/18 16:56 Pulse 85 04/21/18 16:56 Resp 20 04/21/18 16:56 BP 107/68 04/21/18 16:56 Pulse Ox 100 04/21/18 16:56 - Labs Result Diagrams: 04/21/18 05:50 04/21/18 05:50 Labs: Laboratory Results - last 24 hr 04/20/18 04/21/18 04/21/18 21:02 05:49 05:50 WBC 9.7 RBC 3.86 L Hgb 11.4 L Hct 34.5 L MCV 89.5 MCH 29.7 MCHC 33.1 RDW 13.6 Plt Count 232 MPV 8.8 Neut % (Auto) 75.8 H Lymph % (Auto) 9.1 L [place] % (Auto) 12.3 H Eos % (Auto) 2.2 Baso % (Auto) 0.6 Neut # (Auto) 7.3 H Lymph # (Auto) 0.9 L [place] # (Auto) 1.2 H Eos # (Auto) 0.2 Baso # (Auto) 0.1 Neutrophils % (Manual) 75 Band Neutrophils % 2 Lymphocytes % (Manual) 9 L Monocytes % (Manual) 11 H Eosinophils % (Manual) 2 Basophils % (Manual) 1 Toxic Granulation Present Platelet Estimate Normal Anisocytosis (manual) Slight Sodium Potassium Chloride Carbon Dioxide Anion Gap BUN Creatinine Est GFR ( Amer) Est GFR (Non-Af Amer) POC Glucose (mg/dL) 174 H 189 H Random Glucose Calcium 04/21/18 04/21/18 04/21/18 05:50 10:43 15:52 WBC RBC Hgb Hct MCV MCH MCHC RDW Plt Count MPV Neut % (Auto) Lymph % (Auto) [place] % (Auto) Eos % (Auto) Baso % (Auto) Neut # (Auto) Lymph # (Auto) [place] # (Auto) Eos # (Auto) Baso # (Auto) Neutrophils % (Manual) Band Neutrophils % Lymphocytes % (Manual) Monocytes % (Manual) Eosinophils % (Manual) Basophils % (Manual) Toxic Granulation Platelet Estimate Anisocytosis (manual) Sodium 135 Potassium 3.6 Chloride 100 Carbon Dioxide 27 Anion Gap 12 BUN 16 Creatinine 0.8 Est GFR ( Amer) > 60 Est GFR (Non-Af Amer) > 60 POC Glucose (mg/dL) 345 H 242 H Random Glucose 212 H Calcium 8.3 L Assessment & Plan (1) COPD (chronic obstructive pulmonary disease) Status: Suspected Priority: High (2) JIM (obstructive sleep apnea) Status: Suspected Priority: High (3) Altered mental status Status: Acute (4) HTN (hypertension) Status: Acute (5) Osteoarthritis of left hip Status: Acute (6) Status post total hip replacement, left Assessment and Plan: plan for range of motion, strengthening, transfers and gait training, Physical and occupational therapy program. Status: Acute (7) DM2 (diabetes mellitus, type 2) Status: Chronic
[2018-04-22] MEDS: Insulin Lispro (humaLOG) 100 Units/ml Inj SC SCH ×4 (07:10→21:41)
[2018-04-22] MEDS: Enoxaparin 40 mg Syringe SC SCH (08:19)
[2018-04-22] MEDS: Pantoprazole 40 mg EC Tab PO SCH (08:20)
[2018-04-22] MEDS: GlipiZIDE 10 mg SR Tab PO SCH (08:20)
[2018-04-22] MEDS: QUININE SULFATE 324 MG PO SCH (08:21)
--- NOTE | 2018-04-22 08:34 | CP.PCM.PN ---
Subjective - Date & Time of Evaluation Date of Evaluation: 04/22/18 Time of Evaluation: 07:15 - Subjective Subjective: Patient seen and examined at bedside comfortable. Pain is well controlled without narcotics. Tolerating PT well. No new complaints. Denies CP/SOB/fever/[place]. Objective - Vital Signs/Intake and Output Vital Signs (last 24 hours): Temp Pulse Resp BP Pulse Ox 98.2 F 80 20 142/86 96 04/22/18 01:00 04/22/18 01:00 04/22/18 01:00 04/22/18 01:00 04/22/18 01:00 - Medications Medications: Current Medications Acetaminophen (Tylenol 325mg Tab) 650 mg PO Q6 [facility] Last Admin: 04/22/18 06:36 Dose: Not Given Chlorthalidone (Hygroton) 25 mg PO DAILY [facility] Last Admin: 04/22/18 08:20 Dose: 25 mg Clonidine HCl (Catapres) 0.3 mg PO DAILY [facility] Last Admin: 04/22/18 08:19 Dose: 0.3 mg Docusate Sodium (Colace) 100 mg PO BID [facility] Last Admin: 04/22/18 08:19 Dose: 100 mg Ezetimibe (Zetia) 10 mg PO DAILY [facility] Last Admin: 04/22/18 08:21 Dose: 10 mg Enoxaparin Sodium (Lovenox) 40 mg SC DAILY [facility]; Protocol Last Admin: 04/22/18 08:19 Dose: 40 mg Ferrous Sulfate (Feosol) 325 mg PO BID [facility] Last Admin: 04/21/18 16:50 Dose: 325 mg Glipizide (Glucotrol Xl) 10 mg PO DAILY [facility] Last Admin: 04/22/18 08:20 Dose: 10 mg Home Med (Quinine Sulfate [Qualaquin]) 324 mg PO DAILY [facility] Last Admin: 04/22/18 08:21 Dose: 324 mg Insulin Human Lispro (Humalog) 0 units SC [facility]; Protocol Last Admin: 04/22/18 07:10 Dose: 2 unit Ketorolac Tromethamine (Toradol) 10 mg PO Q6 PRN PRN Reason: Pain, moderate (4-7) Last Admin: 04/21/18 11:37 Dose: 10 mg Losartan Potassium (Cozaar) 100 mg PO DAILY [facility] Last Admin: 10/16/18 08:20 Dose: 100 mg Metoprolol Tartrate (Lopressor) 50 mg PO DAILY [facility] Last Admin: 04/22/18 08:20 Dose: 50 mg Pantoprazole Sodium (Protonix Ec Tab) 40 mg PO DAILY [facility] Last Admin: 04/22/18 08:20 Dose: 40 mg Tamsulosin HCl (Flomax) 0.4 mg PO DAILY [facility] Last Admin: 04/22/18 08:20 Dose: 0.4 mg - Labs Labs: 04/21/18 05:50 04/21/18 05:50 - Extremities Exam Additional comments: L hip: dressings CDI, mild swelling sensation diminished but intact SP/DP/TN bilaterally (baseline) motor intact EHL/FHL/TA/G pedal pulses intact calves soft NT b/l Assessment and Plan (1) Status post total hip replacement, left Assessment & Plan: POD#6 s/p L POOJA doing well -PT/OT FWB -DVT ppx -orthopedically stable -above d/w Dr. Lopez in agreement Status: Acute
--- NOTE | 2018-04-22 10:24 | CP.PCM.PN ---
Subjective - Date & Time of Evaluation Date of Evaluation: 04/22/18 Time of Evaluation: 10:24 - Subjective Subjective: Patient seen and examined; no acute distress ambulation with rolling walker Objective - Vital Signs/Intake and Output Vital Signs (last 24 hours): Temp Pulse Resp BP Pulse Ox 98.1 F 96 H 20 145/76 98 04/22/18 10:00 04/22/18 10:00 04/22/18 10:00 04/22/18 10:00 04/22/18 10:00 - Medications Medications: Current Medications Acetaminophen (Tylenol 325mg Tab) 650 mg PO Q6 [facility] Last Admin: 04/22/18 10:17 Dose: Not Given Chlorthalidone (Hygroton) 25 mg PO DAILY [facility] Last Admin: 04/22/18 08:20 Dose: 25 mg Clonidine HCl (Catapres) 0.3 mg PO DAILY [facility] Last Admin: 04/22/18 08:19 Dose: 0.3 mg Docusate Sodium (Colace) 100 mg PO BID [facility] Last Admin: 04/22/18 08:19 Dose: 100 mg Ezetimibe (Zetia) 10 mg PO DAILY [facility] Last Admin: 04/22/18 08:21 Dose: 10 mg Enoxaparin Sodium (Lovenox) 40 mg SC DAILY [facility]; Protocol Last Admin: 04/22/18 08:19 Dose: 40 mg Ferrous Sulfate (Feosol) 325 mg PO BID [facility] Last Admin: 04/22/18 10:17 Dose: 325 mg Glipizide (Glucotrol Xl) 10 mg PO DAILY [facility] Last Admin: 04/22/18 08:20 Dose: 10 mg Home Med (Quinine Sulfate [Qualaquin]) 324 mg PO DAILY [facility] Last Admin: 04/22/18 08:21 Dose: 324 mg Insulin Human Lispro (Humalog) 0 units SC [facility]; Protocol Last Admin: 04/22/18 07:10 Dose: 2 unit Ketorolac Tromethamine (Toradol) 10 mg PO Q6 PRN PRN Reason: Pain, moderate (4-7) Last Admin: 04/21/18 11:37 Dose: 10 mg Losartan Potassium (Cozaar) 100 mg PO DAILY [facility] Last Admin: 04/22/18 08:20 Dose: 100 mg Metoprolol Tartrate (Lopressor) 50 mg PO DAILY [facility] Last Admin: 04/22/18 08:20 Dose: 50 mg Pantoprazole Sodium (Protonix Ec Tab) 40 mg PO DAILY [facility] Last Admin: 04/22/18 08:20 Dose: 40 mg Tamsulosin HCl (Flomax) 0.4 mg PO DAILY [facility] Last Admin: 04/22/18 08:20 Dose: 0.4 mg - Labs Labs: 04/21/18 05:50 04/21/18 05:50 - Constitutional Appears: Well - Head Exam Head Exam: ATRAUMATIC - Eye Exam Eye Exam: EOMI Pupil Exam: PERRL - ENT Exam ENT Exam: Mucous Membranes Moist - Neck Exam Neck Exam: Full ROM - Respiratory Exam Respiratory Exam: Clear to Ausculation Bilateral - Cardiovascular Exam Cardiovascular Exam: REGULAR RHYTHM - GI/Abdominal Exam GI & Abdominal Exam: Soft - Neurological Exam Neurological Exam: Alert, Awake, Oriented x3 Assessment and Plan - Assessment and Plan (Free Text) Assessment: (1) COPD (chronic obstructive pulmonary disease) Status: Suspected Priority: High (2) JIM (obstructive sleep apnea) Status: Suspected Priority: High outpt sleep study (3) Altered mental status Status: Acute resolved (4) HTN (hypertension) Status: Acute continue with current therapy (5) Osteoarthritis of left hip Status: Acute (6) Status post total hip replacement, left Assessment and Plan: plan for range of motion, strengthening, transfers and gait training, Physical and occupational therapy program. Status: Acute PT/OT dvt ppx (7) DM2 (diabetes mellitus, type 2) Status: Chronic ss coverage; adjust insulin dosing as necessary
--- NOTE | 2018-04-22 10:59 | CP.PCM.PN ---
Subjective - Date & Time of Evaluation Date of Evaluation: 04/22/18 Time of Evaluation: 10:57 - Subjective Subjective: The patient was asleep when seen on rounds in the morning. He did awaken with a startled response but otherwise unremarkable. He was alert and oriented 3. He offered no complaints at the present time. He did use high flow nasal cannula overnight and reports having slept well. Breath sounds are heard equally in both lungs and are diminished bilaterally. No audible wheezing is appreciated. Rare dry rales are heard posteriorly. Heart sounds are distant and the rhythm is regular. Suspected JIM with underlying COPD both of which need follow-up and testing as an outpatient. Avoid overuse of narcotics and/or sedatives. Objective - Vital Signs/Intake and Output Vital Signs (last 24 hours): Temp Pulse Resp BP Pulse Ox 98.1 F 96 H 20 145/76 98 04/22/18 10:00 04/22/18 10:00 04/22/18 10:00 04/22/18 10:00 04/22/18 10:00 - Medications Medications: Current Medications Acetaminophen (Tylenol 325mg Tab) 650 mg PO Q6 [facility] Last Admin: 04/22/18 10:17 Dose: Not Given Chlorthalidone (Hygroton) 25 mg PO DAILY [facility] Last Admin: 04/22/18 08:20 Dose: 25 mg Clonidine HCl (Catapres) 0.3 mg PO DAILY [facility] Last Admin: 04/22/18 08:19 Dose: 0.3 mg Docusate Sodium (Colace) 100 mg PO BID [facility] Last Admin: 04/22/18 08:19 Dose: 100 mg Ezetimibe (Zetia) 10 mg PO DAILY [facility] Last Admin: 04/22/18 08:21 Dose: 10 mg Enoxaparin Sodium (Lovenox) 40 mg SC DAILY [facility]; Protocol Last Admin: 04/22/18 08:19 Dose: 40 mg Ferrous Sulfate (Feosol) 325 mg PO BID [facility] Last Admin: 04/22/18 10:17 Dose: 325 mg Glipizide (Glucotrol Xl) 10 mg PO DAILY [facility] Last Admin: 04/22/18 08:20 Dose: 10 mg Home Med (Quinine Sulfate [Qualaquin]) 324 mg PO DAILY [facility] Last Admin: 04/22/18 08:21 Dose: 324 mg Insulin Human Lispro (Humalog) 0 units SC [facility]; Protocol Last Admin: 04/22/18 07:10 Dose: 2 unit Ketorolac Tromethamine (Toradol) 10 mg PO Q6 PRN PRN Reason: Pain, moderate (4-7) Last Admin: 04/21/18 11:37 Dose: 10 mg Losartan Potassium (Cozaar) 100 mg PO DAILY [facility] Last Admin: 04/22/18 08:20 Dose: 100 mg Metoprolol Tartrate (Lopressor) 50 mg PO DAILY [facility] Last Admin: 04/22/18 08:20 Dose: 50 mg Pantoprazole Sodium (Protonix Ec Tab) 40 mg PO DAILY [facility] Last Admin: 04/22/18 08:20 Dose: 40 mg Tamsulosin HCl (Flomax) 0.4 mg PO DAILY [facility] Last Admin: 04/22/18 08:20 Dose: 0.4 mg - Labs Labs: 04/21/18 05:50 04/21/18 05:50 Assessment and Plan (1) JIM (obstructive sleep apnea) Status: Suspected (2) COPD (chronic obstructive pulmonary disease) Status: Suspected
[2018-04-23] MEDS: Insulin Lispro (humaLOG) 100 Units/ml Inj SC SCH ×4 (06:41→21:58)
[2018-04-23] MEDS: Enoxaparin 40 mg Syringe SC SCH (08:35)
[2018-04-23] MEDS: QUININE SULFATE 324 MG PO SCH (08:36)
[2018-04-23] MEDS: GlipiZIDE 10 mg SR Tab PO SCH (08:36)
[2018-04-23] MEDS: Pantoprazole 40 mg EC Tab PO SCH (08:37)
--- NOTE | 2018-04-23 10:59 | CP.PCM.PN ---
Subjective - Date & Time of Evaluation Date of Evaluation: 04/23/18 Time of Evaluation: 10:15 - Subjective Subjective: NO NEW COMPLAINTS DOING OK Objective - Vital Signs/Intake and Output Vital Signs (last 24 hours): Temp Pulse Resp BP Pulse Ox 97.9 F 94 H 20 159/82 H 99 04/23/18 08:16 04/23/18 08:16 04/23/18 08:16 04/23/18 08:16 04/23/18 08:16 - Medications Medications: Current Medications Acetaminophen (Tylenol 325mg Tab) 650 mg PO Q6 PRN PRN Reason: Pain, moderate (4-7) Chlorthalidone (Hygroton) 25 mg PO DAILY [facility] Last Admin: 04/23/18 08:37 Dose: 25 mg Clonidine HCl (Catapres) 0.1 mg PO Q12 [facility] Docusate Sodium (Colace) 100 mg PO BID [facility] Last Admin: 04/23/18 08:37 Dose: 100 mg Ezetimibe (Zetia) 10 mg PO DAILY [facility] Last Admin: 04/23/18 08:37 Dose: 10 mg Enoxaparin Sodium (Lovenox) 40 mg SC DAILY [facility]; Protocol Last Admin: 04/23/18 08:35 Dose: 40 mg Ferrous Sulfate (Feosol) 325 mg PO BID [facility] Last Admin: 04/23/18 08:37 Dose: 325 mg Glipizide (Glucotrol Xl) 10 mg PO DAILY [facility] Last Admin: 04/23/18 08:36 Dose: 10 mg Home Med (Quinine Sulfate [Qualaquin]) 324 mg PO DAILY [facility] Last Admin: 04/23/18 08:36 Dose: 324 mg Insulin Human Lispro (Humalog) 0 units SC [facility]; Protocol Last Admin: 04/23/18 06:41 Dose: 3 unit Ketorolac Tromethamine (Toradol) 10 mg PO Q6 PRN PRN Reason: Pain, moderate (4-7) Last Admin: 04/21/18 11:37 Dose: 10 mg Losartan Potassium (Cozaar) 100 mg PO DAILY [facility] Last Admin: 04/23/18 08:37 Dose: 100 mg Metoprolol Tartrate (Lopressor) 50 mg PO DAILY [facility] Last Admin: 04/23/18 08:37 Dose: 50 mg Pantoprazole Sodium (Protonix Ec Tab) 40 mg PO DAILY [facility] Last Admin: 04/23/18 08:37 Dose: 40 mg Tamsulosin HCl (Flomax) 0.4 mg PO DAILY [facility] Last Admin: 04/23/18 08:37 Dose: 0.4 mg - Labs Labs: 04/21/18 05:50 04/21/18 05:50 - Respiratory Exam Respiratory Exam: Clear to Ausculation Bilateral - Cardiovascular Exam Cardiovascular Exam: REGULAR RHYTHM, +S1, +S2 - Additional Findings Additional findings: BP WAS 88/57 YESTERDAY AT PHYSICAL THERAPY BP WAS 159/82 AT 8 AM TODAY BP WAS 95/57 AFTER MEDS WERE GIVEN Assessment and Plan - Assessment and Plan (Free Text) Assessment: S/P LEFT THR HYPERTENSION HYPERLIPIDEMIA Plan: CONTINUE LOSARTAN 100 MGS AND METOPROLOL 50 MGS DAILY CHANGE CLONIDINE FROM 0.3 MGS PO ONCE Q AM TO 0.1 MG PO Q 12 HRS OF TOMORROW TO TRY TO PREVENT FALL IN BP CONTINUE ZETIA CONTINUE TAMIKO
--- NOTE | 2018-04-23 12:00 | CP.PCM.PN ---
Subjective - Date & Time of Evaluation Date of Evaluation: 04/23/18 Time of Evaluation: 10:00 - Subjective Subjective: Patient seen and examined sitting up in bed. Pain is well controlled. C/o light headedness with position changes. No other complaints. Objective - Vital Signs/Intake and Output Vital Signs (last 24 hours): Temp Pulse Resp BP Pulse Ox 97.9 F 94 H 20 159/82 H 99 04/23/18 08:16 04/23/18 08:16 04/23/18 08:16 04/23/18 08:16 04/23/18 08:16 - Medications Medications: Current Medications Acetaminophen (Tylenol 325mg Tab) 650 mg PO Q6 PRN PRN Reason: Pain, moderate (4-7) Chlorthalidone (Hygroton) 25 mg PO DAILY [facility] Last Admin: 04/23/18 08:37 Dose: 25 mg Clonidine HCl (Catapres) 0.1 mg PO Q12 [facility] Docusate Sodium (Colace) 100 mg PO BID [facility] Last Admin: 04/23/18 08:37 Dose: 100 mg Ezetimibe (Zetia) 10 mg PO DAILY [facility] Last Admin: 04/23/18 08:37 Dose: 10 mg Enoxaparin Sodium (Lovenox) 40 mg SC DAILY [facility]; Protocol Last Admin: 04/23/18 08:35 Dose: 40 mg Ferrous Sulfate (Feosol) 325 mg PO BID [facility] Last Admin: 04/23/18 08:37 Dose: 325 mg Glipizide (Glucotrol Xl) 10 mg PO DAILY [facility] Last Admin: 04/23/18 08:36 Dose: 10 mg Home Med (Quinine Sulfate [Qualaquin]) 324 mg PO DAILY [facility] Last Admin: 04/23/18 08:36 Dose: 324 mg Insulin Human Lispro (Humalog) 0 units SC [facility]; Protocol Last Admin: 04/23/18 06:41 Dose: 3 unit Ketorolac Tromethamine (Toradol) 10 mg PO Q6 PRN PRN Reason: Pain, moderate (4-7) Last Admin: 04/21/18 11:37 Dose: 10 mg Losartan Potassium (Cozaar) 100 mg PO DAILY [facility] Last Admin: 04/23/18 08:37 Dose: 100 mg Metoprolol Tartrate (Lopressor) 50 mg PO DAILY [facility] Last Admin: 04/23/18 08:37 Dose: 50 mg Pantoprazole Sodium (Protonix Ec Tab) 40 mg PO DAILY [facility] Last Admin: 04/23/18 08:37 Dose: 40 mg Tamsulosin HCl (Flomax) 0.4 mg PO DAILY [facility] Last Admin: 04/23/18 08:37 Dose: 0.4 mg - Labs Labs: 04/21/18 05:50 04/21/18 05:50 - Extremities Exam Additional comments: L hip: dressings CDI, mild swelling sensation diminished but intact SP/DP/TN bilaterally (baseline) motor intact EHL/FHL/TA/G pedal pulses intact calves soft NT b/l Assessment and Plan (1) Status post total hip replacement, left Assessment & Plan: POD#7 s/p L POOJA doing well -patient was instructed on resting between position changes -PT/OT FWB -DVT ppx -orthopedically stable -above d/w Dr. Lopez in agreement Status: Acute
--- NOTE | 2018-04-23 12:17 | CP.PCM.PN ---
Subjective - Date & Time of Evaluation Date of Evaluation: 04/23/18 Time of Evaluation: 12:00 - Subjective Subjective: no acute complaints at present Objective - Vital Signs/Intake and Output Vital Signs (last 24 hours): Temp Pulse Resp BP Pulse Ox 97.9 F 94 H 20 159/82 H 99 04/23/18 08:16 04/23/18 08:16 04/23/18 08:16 04/23/18 08:16 04/23/18 08:16 - Medications Medications: Current Medications Acetaminophen (Tylenol 325mg Tab) 650 mg PO Q6 PRN PRN Reason: Pain, moderate (4-7) Chlorthalidone (Hygroton) 25 mg PO DAILY [facility] Last Admin: 04/23/18 08:37 Dose: 25 mg Clonidine HCl (Catapres) 0.1 mg PO Q12 [facility] Docusate Sodium (Colace) 100 mg PO BID [facility] Last Admin: 04/23/18 08:37 Dose: 100 mg Ezetimibe (Zetia) 10 mg PO DAILY [facility] Last Admin: 04/23/18 08:37 Dose: 10 mg Enoxaparin Sodium (Lovenox) 40 mg SC DAILY [facility]; Protocol Last Admin: 04/23/18 08:35 Dose: 40 mg Ferrous Sulfate (Feosol) 325 mg PO BID [facility] Last Admin: 04/23/18 08:37 Dose: 325 mg Glipizide (Glucotrol Xl) 10 mg PO DAILY [facility] Last Admin: 04/23/18 08:36 Dose: 10 mg Home Med (Quinine Sulfate [Qualaquin]) 324 mg PO DAILY [facility] Last Admin: 04/23/18 08:36 Dose: 324 mg Insulin Human Lispro (Humalog) 0 units SC [facility]; Protocol Last Admin: 04/23/18 12:08 Dose: Not Given Ketorolac Tromethamine (Toradol) 10 mg PO Q6 PRN PRN Reason: Pain, moderate (4-7) Last Admin: 04/21/18 11:37 Dose: 10 mg Losartan Potassium (Cozaar) 100 mg PO DAILY [facility] Last Admin: 04/23/18 08:37 Dose: 100 mg Metoprolol Tartrate (Lopressor) 50 mg PO DAILY [facility] Last Admin: 04/23/18 08:37 Dose: 50 mg Pantoprazole Sodium (Protonix Ec Tab) 40 mg PO DAILY [facility] Last Admin: 04/23/18 08:37 Dose: 40 mg Tamsulosin HCl (Flomax) 0.4 mg PO DAILY [facility] Last Admin: 04/23/18 08:37 Dose: 0.4 mg - Labs Labs: 04/21/18 05:50 04/21/18 05:50 - Head Exam Head Exam: ATRAUMATIC, NORMAL INSPECTION, NORMOCEPHALIC - Eye Exam Eye Exam: EOMI, Normal appearance, PERRL Pupil Exam: NORMAL ACCOMODATION - ENT Exam ENT Exam: Mucous Membranes Moist, Normal Exam - Neck Exam Neck Exam: Full ROM, Normal Inspection - Respiratory Exam Respiratory Exam: Clear to Ausculation Bilateral, NORMAL BREATHING PATTERN - Cardiovascular Exam Cardiovascular Exam: REGULAR RHYTHM - GI/Abdominal Exam GI & Abdominal Exam: Soft, Normal Bowel Sounds - Rectal Exam Rectal Exam: NORMAL INSPECTION - Exam External exam: NORMAL EXTERNAL EXAM - Extremities Exam Extremities Exam: Full ROM, Normal Capillary Refill, Normal Inspection - Back Exam Back Exam: NORMAL INSPECTION - Neurological Exam Neurological Exam: Alert, Awake Neuro motor strength exam: Left Lower Extremity: 3 - Psychiatric Exam Psychiatric exam: Normal Affect, Normal Mood - Skin Skin Exam: Dry, Intact Assessment and Plan (1) COPD (chronic obstructive pulmonary disease) Status: Suspected (2) JIM (obstructive sleep apnea) Status: Suspected (3) Altered mental status Status: Acute (4) HTN (hypertension) Status: Acute (5) Osteoarthritis of left hip Status: Acute (6) Status post total hip replacement, left Assessment & Plan: plan for physical, occupational therapy continue with rehab Status: Acute (7) DM2 (diabetes mellitus, type 2) Status: Chronic
[2018-04-24] MEDS: Insulin Lispro (humaLOG) 100 Units/ml Inj SC SCH ×4 (06:51→23:49)
[2018-04-24] MEDS: QUININE SULFATE 324 MG PO SCH (08:24)
[2018-04-24] MEDS: Enoxaparin 40 mg Syringe SC SCH (08:24)
[2018-04-24] MEDS: Pantoprazole 40 mg EC Tab PO SCH (08:27)
[2018-04-24] MEDS: GlipiZIDE 10 mg SR Tab PO SCH (08:27)
--- NOTE | 2018-04-24 09:51 | CP.PCM.PN ---
Subjective - Date & Time of Evaluation Date of Evaluation: 04/24/18 Time of Evaluation: 09:43 - Subjective Subjective: Has been doing well. Not using HFNC the past two nights, but claims to sleep well and awakens feeling rested. Had mild low normal BP with lightheaded feeling yesterday morning resulting in cancellation of that PT session. Had afternoon PT without any issues and did well. SpO2 on room air presently is 96%, pulse 70. Breath sounds are diminished bilaterally with few dependant rhonchi. No wheezes. Will need polysomnography at some time in the near future as an outpatient. Presently doing okay, and his 'episode' that occurred earlier in the week was probably a result of medications with some degree of underlying JIM. Avoidance of narcotic analgesics and sedating medications appears to be sufficient to avoid apneas/hypopneas for the present time. Objective - Vital Signs/Intake and Output Vital Signs (last 24 hours): Temp Pulse Resp BP Pulse Ox 97.7 F 93 H 20 162/76 H 96 04/24/18 08:09 04/24/18 08:27 04/24/18 08:09 04/24/18 08:27 04/24/18 08:09 - Medications Medications: Current Medications Acetaminophen (Tylenol 325mg Tab) 650 mg PO Q6 PRN PRN Reason: Pain, moderate (4-7) Last Admin: 04/24/18 01:28 Dose: 650 mg Chlorthalidone (Hygroton) 25 mg PO DAILY [facility] Last Admin: 04/24/18 08:25 Dose: 25 mg Clonidine HCl (Catapres) 0.1 mg PO Q12 [facility] Last Admin: 04/24/18 08:24 Dose: 0.1 mg Docusate Sodium (Colace) 100 mg PO BID [facility] Last Admin: 04/24/18 08:25 Dose: 100 mg Ezetimibe (Zetia) 10 mg PO DAILY [facility] Last Admin: 04/24/18 08:26 Dose: 10 mg Enoxaparin Sodium (Lovenox) 40 mg SC DAILY [facility]; Protocol Last Admin: 04/24/18 08:24 Dose: 40 mg Ferrous Sulfate (Feosol) 325 mg PO BID [facility] Last Admin: 04/24/18 08:26 Dose: 325 mg Glipizide (Glucotrol Xl) 10 mg PO DAILY [facility] Last Admin: 04/24/18 08:27 Dose: 10 mg Home Med (Quinine Sulfate [Qualaquin]) 324 mg PO DAILY [facility] Last Admin: 04/24/18 08:24 Dose: 324 mg Insulin Human Lispro (Humalog) 0 units SC [facility]; Protocol Last Admin: 04/24/18 06:51 Dose: 2 unit Ketorolac Tromethamine (Toradol) 10 mg PO Q6 PRN PRN Reason: Pain, moderate (4-7) Last Admin: 04/21/18 11:37 Dose: 10 mg Losartan Potassium (Cozaar) 100 mg PO DAILY [facility] Last Admin: 04/24/18 08:26 Dose: 100 mg Metoprolol Tartrate (Lopressor) 50 mg PO DAILY [facility] Last Admin: 04/24/18 08:27 Dose: 50 mg Pantoprazole Sodium (Protonix Ec Tab) 40 mg PO DAILY [facility] Last Admin: 04/24/18 08:27 Dose: 40 mg Tamsulosin HCl (Flomax) 0.4 mg PO DAILY [facility] Last Admin: 04/24/18 08:26 Dose: 0.4 mg - Labs Labs: 04/21/18 05:50 04/21/18 05:50 Assessment and Plan (1) JIM (obstructive sleep apnea) Status: Suspected (2) COPD (chronic obstructive pulmonary disease) Status: Suspected
--- NOTE | 2018-04-24 10:07 | CP.PCM.PN ---
Addendum entered and electronically signed by Richi Rubio MD 04/24/18 19:49: repeat urinalysis did not show any significant blood in the urine. Patient may have wiped his genital vigorously causing abrasion leading to scanty bleeding. repeat urinalysis in am. Original Note: <Kevin Urias - Last Filed: 04/24/18 10:00> Subjective - Date & Time of Evaluation Date of Evaluation: 04/24/18 Time of Evaluation: 10:00 - Subjective Subjective: 72 y/o male seen and evaluated at bedside s/p Left Hip replacement 04/16/[address] Lopez. Patient reports the pain to the left leg has significantly improved, and patient is tolerating physical therapy with a rolling walker. Patient complains of light-headedness during PT, however, denies chest pain, SOB, headache, nausea, or vomiting. Objective - Vital Signs/Intake and Output Vital Signs (last 24 hours): Temp Pulse Resp BP Pulse Ox 97.7 F 93 H 20 162/76 H 96 04/24/18 08:09 04/24/18 08:27 04/24/18 08:09 04/24/18 08:27 04/24/18 08:09 - Medications Medications: Current Medications Acetaminophen (Tylenol 325mg Tab) 650 mg PO Q6 PRN PRN Reason: Pain, moderate (4-7) Last Admin: 04/24/18 01:28 Dose: 650 mg Chlorthalidone (Hygroton) 25 mg PO DAILY [facility] Last Admin: 04/24/18 08:25 Dose: 25 mg Clonidine HCl (Catapres) 0.1 mg PO Q12 [facility] Last Admin: 04/24/18 08:24 Dose: 0.1 mg Docusate Sodium (Colace) 100 mg PO BID [facility] Last Admin: 04/24/18 08:25 Dose: 100 mg Ezetimibe (Zetia) 10 mg PO DAILY [facility] Last Admin: 04/24/18 08:26 Dose: 10 mg Enoxaparin Sodium (Lovenox) 40 mg SC DAILY [facility]; Protocol Last Admin: 04/24/18 08:24 Dose: 40 mg Ferrous Sulfate (Feosol) 325 mg PO BID [facility] Last Admin: 04/24/18 08:26 Dose: 325 mg Glipizide (Glucotrol Xl) 10 mg PO DAILY [facility] Last Admin: 04/24/18 08:27 Dose: 10 mg Home Med (Quinine Sulfate [Qualaquin]) 324 mg PO DAILY [facility] Last Admin: 04/24/18 08:24 Dose: 324 mg Insulin Human Lispro (Humalog) 0 units SC [facility]; Protocol Last Admin: 04/24/18 06:51 Dose: 2 unit Ketorolac Tromethamine (Toradol) 10 mg PO Q6 PRN PRN Reason: Pain, moderate (4-7) Last Admin: 04/21/18 11:37 Dose: 10 mg Losartan Potassium (Cozaar) 100 mg PO DAILY [facility] Last Admin: 04/24/18 08:26 Dose: 100 mg Metoprolol Tartrate (Lopressor) 50 mg PO DAILY [facility] Last Admin: 04/24/18 08:27 Dose: 50 mg Pantoprazole Sodium (Protonix Ec Tab) 40 mg PO DAILY [facility] Last Admin: 04/24/18 08:27 Dose: 40 mg Tamsulosin HCl (Flomax) 0.4 mg PO DAILY [facility] Last Admin: 04/24/18 08:26 Dose: 0.4 mg - Labs Labs: 04/21/18 05:50 04/21/18 05:50 - Constitutional Appears: Well, Non-toxic, No Acute Distress - Head Exam Head Exam: ATRAUMATIC, NORMOCEPHALIC - Eye Exam Eye Exam: Normal appearance, PERRL - ENT Exam ENT Exam: Mucous Membranes Moist - Neck Exam Neck Exam: Full ROM. absent: Lymphadenopathy - Respiratory Exam Respiratory Exam: Decreased Breath Sounds, Rhonchi, NORMAL BREATHING PATTERN. absent: Rales, Wheezes - Cardiovascular Exam Cardiovascular Exam: REGULAR RHYTHM, RRR, +S1, +S2. absent: JVD - GI/Abdominal Exam GI & Abdominal Exam: Soft, Normal Bowel Sounds. absent: Firm, Guarding, Rigid - Extremities Exam Extremities Exam: absent: Calf Tenderness, Pedal Edema - Back Exam Back Exam: absent: CVA tenderness (L), CVA tenderness (R) - Neurological Exam Neurological Exam: Alert, Awake, Oriented x3 - Psychiatric Exam Psychiatric exam: Normal Affect, Normal Mood - Skin Skin Exam: Normal Color Assessment and Plan - Assessment and Plan (Free Text) Assessment: 72 y/o male seen and evaluated s/p Left Hip Replacement with Dr. Lopez from 04/16/18 Plan: Left Hip Replacement 04/16/18 - As per Ortho, patient was instructed on resting between position changes, ambulating with rolling walker - Continue PT/OT - Pain Control with Toradol, patient to avoid narcotic medications at this time Altered Mental Status likely secondary to Narcotic overdose - Discontinue Narcotic pain medication - resolved at this time Obstructive Sleep Apnea/ COPD - High Flow Nasal Cannula - As per Pulmonology, Dr. Wood- Patient will need to be worked up as an outpatient after he recovers from the present surgery, Avoidance of sedating medications inclusive of narcotic analgesics is recommended, Will need polysomnography at some time in the near future as an outpatient Type II Diabetes - controlled, chronic - Glipizide 10 mg PO [facility] - HbA1c (03/26/18) 7.1% Hypertension - chronic, uncontrolled - Losartan 100 mg PO DAILY - Metoprolol 50 mg BID - Chlorthalidone 25 mg pO - Clonidine 0.3 mg changed to 0.1 mg PO Q12 Hyperlipidemia - Zetia 10 mg PO DVT Prophylaxis - Lovenox 40 mg <Richi Rubio D - Last Filed: 04/24/18 13:23> Objective - Vital Signs/Intake and Output Vital Signs (last 24 hours): Temp Pulse Resp BP Pulse Ox 97.7 F 93 H 20 162/76 H 96 04/24/18 08:09 04/24/18 08:27 04/24/18 08:09 04/24/18 08:27 04/24/18 08:09 - Medications Medications: Current Medications Acetaminophen (Tylenol 325mg Tab) 650 mg PO Q6 PRN PRN Reason: Pain, moderate (4-7) Last Admin: 04/24/18 01:28 Dose: 650 mg Chlorthalidone (Hygroton) 25 mg PO DAILY [facility] Last Admin: 04/24/18 08:25 Dose: 25 mg Clonidine HCl (Catapres) 0.1 mg PO Q12 [facility] Last Admin: 04/24/18 08:24 Dose: 0.1 mg Docusate Sodium (Colace) 100 mg PO BID [facility] Last Admin: 04/24/18 08:25 Dose: 100 mg Ezetimibe (Zetia) 10 mg PO DAILY [facility] Last Admin: 04/24/18 08:26 Dose: 10 mg Enoxaparin Sodium (Lovenox) 40 mg SC DAILY [facility]; Protocol Last Admin: 04/24/18 08:24 Dose: 40 mg Ferrous Sulfate (Feosol) 325 mg PO BID [facility] Last Admin: 04/24/18 08:26 Dose: 325 mg Glipizide (Glucotrol Xl) 10 mg PO DAILY [facility] Last Admin: 04/24/18 08:27 Dose: 10 mg Home Med (Quinine Sulfate [Qualaquin]) 324 mg PO DAILY [facility] Last Admin: 04/24/18 08:24 Dose: 324 mg Insulin Human Lispro (Humalog) 0 units SC [facility]; Protocol Last Admin: 04/24/18 12:11 Dose: 4 unit Ketorolac Tromethamine (Toradol) 10 mg PO Q6 PRN PRN Reason: Pain, moderate (4-7) Last Admin: 04/21/18 11:37 Dose: 10 mg Losartan Potassium (Cozaar) 100 mg PO DAILY [facility] Last Admin: 04/24/18 08:26 Dose: 100 mg Metoprolol Tartrate (Lopressor) 50 mg PO DAILY [facility] Last Admin: 04/24/18 08:27 Dose: 50 mg Pantoprazole Sodium (Protonix Ec Tab) 40 mg PO DAILY [facility] Last Admin: 04/24/18 08:27 Dose: 40 mg Sitagliptin Phosphate (Januvia) 100 mg PO DAILY [facility] Tamsulosin HCl (Flomax) 0.4 mg PO DAILY [facility] Last Admin: 04/24/18 08:26 Dose: 0.4 mg - Labs Labs: 04/21/18 05:50 04/21/18 05:50 Attending/Attestation - Attestation I have personally seen and examined this patient.: Yes I have fully participated in the care of the patient.: Yes I have reviewed all pertinent clinical information, including history, physical exam and plan: Yes Notes (Text): 04/24/18 13:17 Patient seen and examined with resident. Agreed with assessment and plan of management. Patient noted blood on the napkin when he wiped his glans penis. Probably coming from the urethral meatus. Denied pain in the area or on urination. Will hold Lovenox for now. Urine send for analysis and culture. Denied having prostate problem but noted to be on Flomax. Patient was also catheterized a few days ago.
--- NOTE | 2018-04-24 12:54 | CP.PCM.PN ---
Subjective - Date & Time of Evaluation Date of Evaluation: 04/24/18 Time of Evaluation: 10:00 - Subjective Subjective: Patient seen and examined at bedside comfortable. Pain is well controlled. Tolerating PT well. No new complaints. Denies CP/SOB/fever/[place]. Objective - Vital Signs/Intake and Output Vital Signs (last 24 hours): Temp Pulse Resp BP Pulse Ox 97.7 F 93 H 20 162/76 H 96 04/24/18 08:09 04/24/18 08:27 04/24/18 08:09 04/24/18 08:27 04/24/18 08:09 - Medications Medications: Current Medications Acetaminophen (Tylenol 325mg Tab) 650 mg PO Q6 PRN PRN Reason: Pain, moderate (4-7) Last Admin: 04/24/18 01:28 Dose: 650 mg Chlorthalidone (Hygroton) 25 mg PO DAILY [facility] Last Admin: 04/24/18 08:25 Dose: 25 mg Clonidine HCl (Catapres) 0.1 mg PO Q12 [facility] Last Admin: 04/24/18 08:24 Dose: 0.1 mg Docusate Sodium (Colace) 100 mg PO BID [facility] Last Admin: 04/24/18 08:25 Dose: 100 mg Ezetimibe (Zetia) 10 mg PO DAILY [facility] Last Admin: 04/24/18 08:26 Dose: 10 mg Enoxaparin Sodium (Lovenox) 40 mg SC DAILY [facility]; Protocol Last Admin: 04/24/18 08:24 Dose: 40 mg Ferrous Sulfate (Feosol) 325 mg PO BID [facility] Last Admin: 04/24/18 08:26 Dose: 325 mg Glipizide (Glucotrol Xl) 10 mg PO DAILY [facility] Last Admin: 04/24/18 08:27 Dose: 10 mg Home Med (Quinine Sulfate [Qualaquin]) 324 mg PO DAILY [facility] Last Admin: 04/24/18 08:24 Dose: 324 mg Insulin Human Lispro (Humalog) 0 units SC [facility]; Protocol Last Admin: 04/24/18 12:11 Dose: 4 unit Ketorolac Tromethamine (Toradol) 10 mg PO Q6 PRN PRN Reason: Pain, moderate (4-7) Last Admin: 04/21/18 11:37 Dose: 10 mg Losartan Potassium (Cozaar) 100 mg PO DAILY [facility] Last Admin: 04/24/18 08:26 Dose: 100 mg Metoprolol Tartrate (Lopressor) 50 mg PO DAILY [facility] Last Admin: 04/24/18 08:27 Dose: 50 mg Pantoprazole Sodium (Protonix Ec Tab) 40 mg PO DAILY [facility] Last Admin: 04/24/18 08:27 Dose: 40 mg Sitagliptin Phosphate (Januvia) 100 mg PO DAILY [facility] Tamsulosin HCl (Flomax) 0.4 mg PO DAILY [facility] Last Admin: 04/24/18 08:26 Dose: 0.4 mg - Labs Labs: 04/21/18 05:50 04/21/18 05:50 - Extremities Exam Additional comments: L hip: dressings CDI sensation diminished but intact SP/DP/TN bilaterally (baseline) motor intact EHL/FHL/TA/G pedal pulses intact calves soft NT b/l Assessment and Plan (1) Status post total hip replacement, left Assessment & Plan: POD#8 s/p L POOJA doing well -PT/OT FWB -DVT ppx -orthopedically stable -above d/w Dr. Lopez in agreement Status: Acute
[2018-04-24 16:57] LABS: URINE BACTERIA RARE (<OCC); URINE BILIRUBIN NEGATIVE (NEGATIVE); URINE BLOOD NEGATIVE (NEGATIVE); URINE CLARITY CLEAR (Clear); URINE COLOR YELLOW (YELLOW); URINE GLUCOSE (UA) 50 mg/dL (Normal); URINE LEUKOCYTE ESTERASE NEG Leu/uL (Negative); URINE PROTEIN NEGATIVE (NEGATIVE); URINE UROBILINOGEN 0.2-1.0 mg/dL (0.2-1.0)
[2018-04-25] MEDS: Insulin Lispro (humaLOG) 100 Units/ml Inj SC SCH ×4 (07:47→22:00)
[2018-04-25] MEDS: Enoxaparin 40 mg Syringe SC SCH (08:24)
[2018-04-25] MEDS: GlipiZIDE 10 mg SR Tab PO SCH (08:25)
[2018-04-25] MEDS: Pantoprazole 40 mg EC Tab PO SCH (08:25)
[2018-04-25] MEDS: QUININE SULFATE 324 MG PO SCH (08:25)
[2018-04-25 08:38] LABS: URINE BILIRUBIN NEGATIVE (NEGATIVE); URINE BLOOD NEGATIVE (NEGATIVE); URINE CLARITY CLEAR (Clear); URINE COLOR STRAW (YELLOW); URINE GLUCOSE (UA) NEG (Normal); URINE LEUKOCYTE ESTERASE NEG Leu/uL (Negative); URINE PROTEIN NEGATIVE (NEGATIVE); URINE UROBILINOGEN 0.2-1.0 mg/dL (0.2-1.0)
--- NOTE | 2018-04-25 10:01 | CP.PCM.PN ---
Subjective - Date & Time of Evaluation Date of Evaluation: 04/25/18 Time of Evaluation: 09:59 - Subjective Subjective: Patient states he is feeling better. Leg pain improving. Denies CP/SOB/dizziness. Objective - Vital Signs/Intake and Output Vital Signs (last 24 hours): Temp Pulse Resp BP Pulse Ox 98.1 F 98 H 20 162/90 H 99 04/25/18 08:35 04/25/18 08:35 04/25/18 08:35 04/25/18 08:35 04/25/18 08:35 - Medications Medications: Current Medications Acetaminophen (Tylenol 325mg Tab) 650 mg PO Q6 PRN PRN Reason: Pain, moderate (4-7) Last Admin: 04/24/18 23:52 Dose: 650 mg Chlorthalidone (Hygroton) 25 mg PO DAILY [facility] Last Admin: 04/25/18 08:25 Dose: 25 mg Clonidine HCl (Catapres) 0.1 mg PO Q12 [facility] Last Admin: 04/25/18 08:26 Dose: 0.1 mg Docusate Sodium (Colace) 100 mg PO BID [facility] Last Admin: 04/25/18 08:25 Dose: 100 mg Ezetimibe (Zetia) 10 mg PO DAILY [facility] Last Admin: 04/25/18 08:25 Dose: 10 mg Enoxaparin Sodium (Lovenox) 40 mg SC DAILY [facility]; Protocol Last Admin: 04/25/18 08:24 Dose: 40 mg Ferrous Sulfate (Feosol) 325 mg PO BID [facility] Last Admin: 04/25/18 08:25 Dose: 325 mg Glipizide (Glucotrol Xl) 10 mg PO DAILY [facility] Last Admin: 04/25/18 08:25 Dose: 10 mg Home Med (Quinine Sulfate [Qualaquin]) 324 mg PO DAILY [facility] Last Admin: 04/25/18 08:25 Dose: 324 mg Insulin Human Lispro (Humalog) 0 units SC [facility]; Protocol Last Admin: 04/25/18 07:47 Dose: 2 unit Ketorolac Tromethamine (Toradol) 10 mg PO Q6 PRN PRN Reason: Pain, moderate (4-7) Last Admin: 04/21/18 11:37 Dose: 10 mg Losartan Potassium (Cozaar) 100 mg PO DAILY [facility] Last Admin: 10/19/18 08:26 Dose: 100 mg Metoprolol Tartrate (Lopressor) 50 mg PO DAILY [facility] Last Admin: 04/25/18 08:25 Dose: 50 mg Pantoprazole Sodium (Protonix Ec Tab) 40 mg PO DAILY [facility] Last Admin: 04/25/18 08:25 Dose: 40 mg Sitagliptin Phosphate (Januvia) 100 mg PO DAILY [facility] Tamsulosin HCl (Flomax) 0.4 mg PO DAILY [facility] Last Admin: 04/25/18 08:25 Dose: 0.4 mg - Labs Labs: 04/21/18 05:50 04/21/18 05:50 - Extremities Exam Additional comments: Left hip dressing changed, scant serous drainage. INcision intact, no erythema. Thigh soft +ROM ankle/toes, sensation intact +DP/PT pulses calves soft NT neg homans, to walker and bathroom independently Assessment and Plan (1) Osteoarthritis of left hip Assessment & Plan: POD#9 s/p left THR PT/OT vVTE proph ortho stable progressing well d/w Dr. Lopez, agrees with above Status: Acute
--- NOTE | 2018-04-25 11:56 | CP.PCM.PN ---
Subjective - Date & Time of Evaluation Date of Evaluation: 04/25/18 Time of Evaluation: 10:00 - Subjective Subjective: NO COMPLAINTS NO CHEST PAIN OR SOB DOING OK AT REHAB Objective - Vital Signs/Intake and Output Vital Signs (last 24 hours): Temp Pulse Resp BP Pulse Ox 98.1 F 98 H 20 162/90 H 99 04/25/18 08:35 04/25/18 08:35 04/25/18 08:35 04/25/18 08:35 04/25/18 08:35 - Medications Medications: Current Medications Acetaminophen (Tylenol 325mg Tab) 650 mg PO Q6 PRN PRN Reason: Pain, moderate (4-7) Last Admin: 04/24/18 23:52 Dose: 650 mg Chlorthalidone (Hygroton) [address] [facility] Last Admin: 04/25/18 08:25 Dose: 25 mg Clonidine HCl (Catapres) 0.[address] [facility] Last Admin: 04/25/18 08:26 Dose: 0.1 mg Docusate Sodium (Colace) [address] [facility] Last Admin: 04/25/18 08:25 Dose: 100 mg Ezetimibe (Zetia) [address] [facility] Last Admin: 04/25/18 08:25 Dose: 10 mg Enoxaparin Sodium (Lovenox) [address] [facility]; Protocol Last Admin: 04/25/18 08:24 Dose: 40 mg Ferrous Sulfate (Feosol) [address] [facility] Last Admin: 04/25/18 08:25 Dose: 325 mg Glipizide (Glucotrol Xl) [address] [facility] Last Admin: 04/25/18 08:25 Dose: 10 mg Home Med (Quinine Sulfate [Qualaquin]) [address] [facility] Last Admin: 04/25/18 08:25 Dose: 324 mg Insulin Human Lispro (Humalog) 0 units SC [facility]; Protocol Last Admin: 04/25/18 07:47 Dose: 2 unit Ketorolac Tromethamine (Toradol) 10 mg PO Q6 PRN PRN Reason: Pain, moderate (4-7) Last Admin: 04/21/18 11:37 Dose: 10 mg Losartan Potassium (Cozaar) [address] [facility] Last Admin: 04/25/18 08:26 Dose: 100 mg Metoprolol Tartrate (Lopressor) [address] [facility] Last Admin: 04/25/18 08:25 Dose: 50 mg Pantoprazole Sodium (Protonix Ec Tab) [address] [facility] Last Admin: 04/25/18 08:25 Dose: 40 mg Sitagliptin Phosphate (Januvia) [address] [facility] Tamsulosin HCl (Flomax) 0.[address] [facility] Last Admin: 04/25/18 08:25 Dose: 0.4 mg - Labs Labs: 04/21/18 05:50 04/21/18 05:50 - Respiratory Exam Respiratory Exam: Clear to Ausculation Bilateral - Cardiovascular Exam Cardiovascular Exam: REGULAR RHYTHM, +S1, +S2 - Additional Findings Additional findings: BP 162/90 AT 8:35 THIS AM BP 85/48 AT 10:47 AFTER AM MEDICATIONS Assessment and Plan - Assessment and Plan (Free Text) Assessment: LEFT THR HYPERTENSION HISTORY WITH HYPOTENSION AFTER MEDICATIONS HYPERLIPIDEMIA Plan: WILL STOP CLONIDINE LOSARTAN DECREASED FROM 100 TO 50 MGS DAILY CONTINUE METOPROLOL 50 MGS PO DAILY BUT IT WAS CHANGED FROM TARTRATE TO SUCCINAT E CONTINUE LOVENOX AND ZETIA OBSERVE BP
--- NOTE | 2018-04-25 19:44 | CP.PCM.PN ---
Subjective - Date & Time of Evaluation Date of Evaluation: 04/25/18 Time of Evaluation: 12:00 - Subjective Subjective: no complaints of leg pain, discomfort getting better Objective - Vital Signs/Intake and Output Vital Signs (last 24 hours): Temp Pulse Resp BP Pulse Ox 98.6 F 82 20 107/67 100 04/25/18 16:45 04/25/18 16:45 04/25/18 16:45 04/25/18 16:45 04/25/18 16:45 - Medications Medications: Current Medications Acetaminophen (Tylenol 325mg Tab) 650 mg PO Q6 PRN PRN Reason: Pain, moderate (4-7) Last Admin: 04/25/18 14:29 Dose: 650 mg Chlorthalidone (Hygroton) [address] [facility] Last Admin: 04/25/18 08:25 Dose: 25 mg Docusate Sodium (Colace) [address] [facility] Last Admin: 04/25/18 17:09 Dose: 100 mg Ezetimibe (Zetia) [address] [facility] Last Admin: 04/25/18 08:25 Dose: 10 mg Enoxaparin Sodium (Lovenox) [address] [facility]; Protocol Last Admin: 04/25/18 08:24 Dose: 40 mg Ferrous Sulfate (Feosol) [address] [facility] Last Admin: 04/25/18 17:09 Dose: 325 mg Glipizide (Glucotrol Xl) [address] [facility] Last Admin: 04/25/18 08:25 Dose: 10 mg Home Med (Quinine Sulfate [Qualaquin]) [address] [facility] Last Admin: 04/25/18 08:25 Dose: 324 mg Insulin Human Lispro (Humalog) 0 units SC [facility]; Protocol Last Admin: 04/25/18 17:09 Dose: 3 unit Ketorolac Tromethamine (Toradol) 10 mg PO Q6 PRN PRN Reason: Pain, moderate (4-7) Last Admin: 04/21/18 11:37 Dose: 10 mg Losartan Potassium (Cozaar) [address] [facility] Metoprolol Succinate (Toprol Xl) [address] [facility] Pantoprazole Sodium (Protonix Ec Tab) [address] [facility] Last Admin: 04/25/18 08:25 Dose: 40 mg Sitagliptin Phosphate (Januvia) [address] [facility] Last Admin: 04/25/18 11:54 Dose: 100 mg Tamsulosin HCl (Flomax) 0.[address] [facility] Last Admin: 04/25/18 08:25 Dose: 0.4 mg - Labs Labs: 04/21/18 05:50 04/21/18 05:50 - Head Exam Head Exam: ATRAUMATIC, NORMAL INSPECTION, NORMOCEPHALIC - Eye Exam Eye Exam: EOMI, Normal appearance Pupil Exam: NORMAL ACCOMODATION, PERRL - ENT Exam ENT Exam: Mucous Membranes Moist, Normal Exam - Neck Exam Neck Exam: Full ROM, Normal Inspection - Respiratory Exam Respiratory Exam: Clear to Ausculation Bilateral, NORMAL BREATHING PATTERN - Cardiovascular Exam Cardiovascular Exam: REGULAR RHYTHM - GI/Abdominal Exam GI & Abdominal Exam: Soft, Normal Bowel Sounds - Rectal Exam Rectal Exam: NORMAL INSPECTION - Exam External exam: NORMAL EXTERNAL EXAM - Extremities Exam Extremities Exam: Normal Capillary Refill, Normal Inspection - Back Exam Back Exam: NORMAL INSPECTION - Neurological Exam Neurological Exam: Alert, Awake Neuro motor strength exam: Left Upper Extremity: 4, Right Upper Extremity: 4, Left Lower Extremity: 3, Right Lower Extremity: 4 - Psychiatric Exam Psychiatric exam: Normal Affect - Skin Skin Exam: Dry, Normal Color Assessment and Plan (1) COPD (chronic obstructive pulmonary disease) Status: Suspected (2) JIM (obstructive sleep apnea) Status: Suspected (3) Altered mental status Status: Acute (4) HTN (hypertension) Status: Acute (5) Osteoarthritis of left hip Status: Acute (6) Status post total hip replacement, left Assessment & Plan: continue with physical, occupational therapy program. Patient progressing well in rehab. No calf pain or tenderness Status: Acute (7) DM2 (diabetes mellitus, type 2) Status: Chronic
--- NOTE | 2018-04-25 19:47 | CP.PCM.PN ---
Subjective - Date & Time of Evaluation Date of Evaluation: 04/24/18 Time of Evaluation: 11:00 - Subjective Subjective: no acute complaints noted, participating in therapy Objective - Vital Signs/Intake and Output Vital Signs (last 24 hours): Temp Pulse Resp BP Pulse Ox 98.6 F 82 20 107/67 100 04/25/18 16:45 04/25/18 16:45 04/25/18 16:45 04/25/18 16:45 04/25/18 16:45 - Medications Medications: Current Medications Acetaminophen (Tylenol 325mg Tab) 650 mg PO Q6 PRN PRN Reason: Pain, moderate (4-7) Last Admin: 04/25/18 14:29 Dose: 650 mg Chlorthalidone (Hygroton) 25 mg PO DAILY [facility] Last Admin: 04/25/18 08:25 Dose: 25 mg Docusate Sodium (Colace) 100 mg PO BID [facility] Last Admin: 04/25/18 17:09 Dose: 100 mg Ezetimibe (Zetia) 10 mg PO DAILY [facility] Last Admin: 04/25/18 08:25 Dose: 10 mg Enoxaparin Sodium (Lovenox) 40 mg SC DAILY [facility]; Protocol Last Admin: 04/25/18 08:24 Dose: 40 mg Ferrous Sulfate (Feosol) 325 mg PO BID [facility] Last Admin: 04/25/18 17:09 Dose: 325 mg Glipizide (Glucotrol Xl) 10 mg PO DAILY [facility] Last Admin: 04/25/18 08:25 Dose: 10 mg Home Med (Quinine Sulfate [Qualaquin]) 324 mg PO DAILY [facility] Last Admin: 04/25/18 08:25 Dose: 324 mg Insulin Human Lispro (Humalog) 0 units SC [facility]; Protocol Last Admin: 04/25/18 17:09 Dose: 3 unit Ketorolac Tromethamine (Toradol) 10 mg PO Q6 PRN PRN Reason: Pain, moderate (4-7) Last Admin: 04/21/18 11:37 Dose: 10 mg Losartan Potassium (Cozaar) 50 mg PO DAILY [facility] Metoprolol Succinate (Toprol Xl) 50 mg PO DAILY [facility] Pantoprazole Sodium (Protonix Ec Tab) 40 mg PO DAILY [facility] Last Admin: 04/25/18 08:25 Dose: 40 mg Sitagliptin Phosphate (Januvia) 100 mg PO DAILY [facility] Last Admin: 04/25/18 11:54 Dose: 100 mg Tamsulosin HCl (Flomax) 0.4 mg PO DAILY [facility] Last Admin: 04/25/18 08:25 Dose: 0.4 mg - Labs Labs: 04/21/18 05:50 04/21/18 05:50 - Head Exam Head Exam: ATRAUMATIC, NORMAL INSPECTION, NORMOCEPHALIC - Eye Exam Eye Exam: EOMI, Normal appearance Pupil Exam: NORMAL ACCOMODATION, PERRL - ENT Exam ENT Exam: Mucous Membranes Moist - Neck Exam Neck Exam: Normal Inspection - Respiratory Exam Respiratory Exam: Clear to Ausculation Bilateral - Cardiovascular Exam Cardiovascular Exam: REGULAR RHYTHM - GI/Abdominal Exam GI & Abdominal Exam: Normal Bowel Sounds - Rectal Exam Rectal Exam: NORMAL INSPECTION - Extremities Exam Extremities Exam: Full ROM, Normal Capillary Refill, Normal Inspection - Back Exam Back Exam: NORMAL INSPECTION - Neurological Exam Neurological Exam: Alert, Awake, CN II-XII Intact, Oriented x3 Neuro motor strength exam: Left Upper Extremity: 4, Right Upper Extremity: 4, Left Lower Extremity: 3, Right Lower Extremity: 4 - Psychiatric Exam Psychiatric exam: Normal Affect, Normal Mood - Skin Skin Exam: Normal Color Assessment and Plan (1) COPD (chronic obstructive pulmonary disease) Status: Suspected (2) JIM (obstructive sleep apnea) Status: Suspected (3) Altered mental status Status: Acute (4) HTN (hypertension) Status: Acute (5) Osteoarthritis of left hip Status: Acute (6) Status post total hip replacement, left Assessment & Plan: to continue with range of motion, strengthening, transfers and gait training. Adl eval and equipment eval for Dc planning Status: Acute (7) DM2 (diabetes mellitus, type 2) Status: Chronic
[2018-04-26] MEDS: Insulin Lispro (humaLOG) 100 Units/ml Inj SC SCH ×4 (06:53→21:28)
[2018-04-26] MEDS: Enoxaparin 40 mg Syringe SC SCH (08:39)
[2018-04-26] MEDS: QUININE SULFATE 324 MG PO SCH (08:40)
[2018-04-26] MEDS: Metoprolol Succinate 50 mg XL Tab PO SCH (08:42)
[2018-04-26] MEDS: GlipiZIDE 10 mg SR Tab PO SCH (08:42)
[2018-04-26] MEDS: Pantoprazole 40 mg EC Tab PO SCH (08:43)
[2018-04-26] MEDS: Insulin Detemir 100 Units/ml Inj SC SCH (21:30)
[2018-04-27] MEDS: Insulin Lispro (humaLOG) 100 Units/ml Inj SC SCH ×4 (07:51→21:18)
[2018-04-27] MEDS: QUININE SULFATE 324 MG PO SCH (08:35)
[2018-04-27] MEDS: Pantoprazole 40 mg EC Tab PO SCH (08:35)
[2018-04-27] MEDS: Enoxaparin 40 mg Syringe SC SCH (08:35)
[2018-04-27] MEDS: GlipiZIDE 10 mg SR Tab PO SCH (08:35)
[2018-04-27] MEDS: Metoprolol Succinate 50 mg XL Tab PO SCH (08:36)
[2018-04-27] MEDS: Insulin Detemir 100 Units/ml Inj SC SCH (21:25)
[2018-04-28 06:32] LABS: HEMOGLOBIN 11.6 g/dL (12.0-18.0); MEAN CELL VOLUME 89.1 fl (80.0-94.0); MEAN CORPUSCULAR HEMOGLOBIN 29.9 pg (27.0-31.0); MEAN CORPUSCULAR HGB CONC 33.6 g/dL (33.0-37.0); RBC 3.88 Mil/uL (4.40-5.90); RED CELL DISTRIBUTION WIDTH 13.5 % (11.5-14.5); WHITE BLOOD COUNT 10.9 K/uL (4.8-10.8)
[2018-04-28 06:51] LABS: BLOOD UREA NITROGEN 28 mg/dl (9-20); GFR NON-AFRICAN AMERICAN 60
[2018-04-28] MEDS: Insulin Lispro (humaLOG) 100 Units/ml Inj SC SCH ×4 (07:15→21:37)
[2018-04-28] MEDS: Pantoprazole 40 mg EC Tab PO SCH (08:32)
[2018-04-28] MEDS: Metoprolol Succinate 50 mg XL Tab PO SCH (08:33)
--- NOTE | 2018-04-28 08:33 | CP.PCM.PN ---
Subjective - Date & Time of Evaluation Date of Evaluation: 04/28/18 Time of Evaluation: 08:30 - Subjective Subjective: NO CHEST PAIN OR SOB FEELS GOOD Objective - Vital Signs/Intake and Output Vital Signs (last 24 hours): Temp Pulse Resp BP Pulse Ox 98.2 F 83 20 150/94 H 96 04/27/18 19:20 04/27/18 19:20 04/27/18 19:20 04/27/18 19:20 04/27/18 19:20 - Medications Medications: Current Medications Acetaminophen (Tylenol 325mg Tab) 650 mg PO Q6 PRN PRN Reason: Pain, moderate (4-7) Last Admin: 04/25/18 14:29 Dose: 650 mg Chlorthalidone (Hygroton) 25 mg PO DAILY [facility] Last Admin: 04/27/18 08:35 Dose: 25 mg Docusate Sodium (Colace) 100 mg PO BID [facility] Last Admin: 04/27/18 17:10 Dose: 100 mg Ezetimibe (Zetia) 10 mg PO DAILY [facility] Last Admin: 04/27/18 08:36 Dose: 10 mg Enoxaparin Sodium (Lovenox) 40 mg SC DAILY [facility]; Protocol Last Admin: 04/27/18 08:35 Dose: 40 mg Ferrous Sulfate (Feosol) 325 mg PO BID [facility] Last Admin: 04/27/18 17:11 Dose: 325 mg Glipizide (Glucotrol Xl) 10 mg PO DAILY [facility] Last Admin: 04/27/18 08:35 Dose: 10 mg Home Med (Quinine Sulfate [Qualaquin]) 324 mg PO DAILY [facility] Last Admin: 04/27/18 08:35 Dose: 324 mg Insulin Detemir (Levemir) 5 units SC [facility] Last Admin: 04/27/18 21:25 Dose: 5 u Insulin Human Lispro (Humalog) 0 units SC [facility]; Protocol Last Admin: 04/28/18 07:15 Dose: 3 units Ketorolac Tromethamine (Toradol) 10 mg PO Q6 PRN PRN Reason: Pain, moderate (4-7) Last Admin: 04/28/18 00:45 Dose: 10 mg Losartan Potassium (Cozaar) 50 mg PO DAILY [facility] Last Admin: 04/27/18 08:34 Dose: 50 mg Metoprolol Succinate (Toprol Xl) 50 mg PO DAILY [facility] Last Admin: 04/27/18 08:36 Dose: 50 mg Pantoprazole Sodium (Protonix Ec Tab) 40 mg PO DAILY [facility] Last Admin: 04/27/18 08:35 Dose: 40 mg Sitagliptin Phosphate (Januvia) 100 mg PO DAILY [facility] Last Admin: 04/27/18 08:35 Dose: 100 mg Tamsulosin HCl (Flomax) 0.4 mg PO DAILY [facility] Last Admin: 04/27/18 08:35 Dose: 0.4 mg - Labs Labs: 04/28/18 05:40 04/28/18 05:40 - Respiratory Exam Respiratory Exam: Clear to Ausculation Bilateral - Cardiovascular Exam Cardiovascular Exam: REGULAR RHYTHM, +S1, +S2 - Additional Findings Additional findings: BLOOD PRESSURES FOR LAST 2 DAYS HAVE BEEN GOOD WITH PRESENT DOSAGES OF LOSARTAN AND METOPROLOL Assessment and Plan - Assessment and Plan (Free Text) Assessment: S/P LEFT THR HYPERTENSION Plan: CONTINUE PRESENT DOSEAGES OF LOSARTAN AND METOPROLOL CONTINUE ELIQUIS AND LOVENOX
[2018-04-28] MEDS: QUININE SULFATE 324 MG PO SCH (08:34)
[2018-04-28] MEDS: GlipiZIDE 10 mg SR Tab PO SCH (08:35)
[2018-04-28] MEDS: Enoxaparin 40 mg Syringe SC SCH (08:36)
--- NOTE | 2018-04-28 09:42 | CP.PCM.PN ---
Subjective - Date & Time of Evaluation Date of Evaluation: 04/28/18 Time of Evaluation: 07:20 - Subjective Subjective: Patient seen and examined at bedside comfortable. Minimal complaints of pain, well controlled. Offers no new complaints. Notes that he desires to be discharged home tomorrow. Denies any CP/SOB/fever/[place]. Objective - Vital Signs/Intake and Output Vital Signs (last 24 hours): Temp Pulse Resp BP Pulse Ox 98.2 F 86 20 178/97 H 96 04/27/18 19:20 04/28/18 08:36 04/27/18 19:20 04/28/18 08:36 04/27/18 19:20 - Medications Medications: Current Medications Acetaminophen (Tylenol 325mg Tab) 650 mg PO Q6 PRN PRN Reason: Pain, moderate (4-7) Last Admin: 04/25/18 14:29 Dose: 650 mg Chlorthalidone (Hygroton) 25 mg PO DAILY [facility] Last Admin: 04/28/18 08:32 Dose: 25 mg Docusate Sodium (Colace) 100 mg PO BID [facility] Last Admin: 04/28/18 08:32 Dose: 100 mg Ezetimibe (Zetia) 10 mg PO DAILY [facility] Last Admin: 04/28/18 08:34 Dose: 10 mg Enoxaparin Sodium (Lovenox) 40 mg SC DAILY [facility]; Protocol Last Admin: 04/28/18 08:36 Dose: 40 mg Ferrous Sulfate (Feosol) 325 mg PO BID [facility] Last Admin: 04/28/18 08:32 Dose: 325 mg Glipizide (Glucotrol Xl) 10 mg PO DAILY [facility] Last Admin: 04/28/18 08:35 Dose: 10 mg Home Med (Quinine Sulfate [Qualaquin]) 324 mg PO DAILY [facility] Last Admin: 04/28/18 08:34 Dose: 324 mg Insulin Detemir (Levemir) 5 units SC HS [facility] Last Admin: 04/27/18 21:25 Dose: 5 u Insulin Human Lispro (Humalog) 0 units SC [facility]; Protocol Last Admin: 04/28/18 07:15 Dose: 3 units Ketorolac Tromethamine (Toradol) 10 mg PO Q6 PRN PRN Reason: Pain, moderate (4-7) Last Admin: 04/28/18 08:37 Dose: 10 mg Losartan Potassium (Cozaar) 50 mg PO DAILY [facility] Last Admin: 04/28/18 08:36 Dose: 50 mg Metoprolol Succinate (Toprol Xl) 50 mg PO DAILY [facility] Last Admin: 04/28/18 08:33 Dose: 50 mg Pantoprazole Sodium (Protonix Ec Tab) 40 mg PO DAILY [facility] Last Admin: 04/28/18 08:32 Dose: 40 mg Sitagliptin Phosphate (Januvia) 100 mg PO DAILY [facility] Last Admin: 04/28/18 08:32 Dose: 100 mg Tamsulosin HCl (Flomax) 0.4 mg PO DAILY [facility] Last Admin: 04/28/18 08:35 Dose: 0.4 mg - Labs Labs: 04/28/18 05:40 04/28/18 05:40 - Extremities Exam Additional comments: L hip: dressings CDI sensation diminished but intact SP/DP/TN bilaterally (baseline) motor intact EHL/FHL/TA/G pedal pulses intact calves soft NT b/l Assessment and Plan (1) Status post total hip replacement, left Assessment & Plan: POD#12 s/p L POOJA doing well -PT/OT FWB -orthopedically stable for discharge to home -above d/w Dr. Lopez in agreement Status: Acute
--- NOTE | 2018-04-28 10:50 | CP.PCM.PN ---
Subjective - Date & Time of Evaluation Date of Evaluation: 04/28/18 Time of Evaluation: 10:47 - Subjective Subjective: Has done well since sedating analgesics have been discontinued. Has been able to sleep well w/o assistive device and awakens feeling rested. Lungs sounds are well heard bilaterally, equally diminished, but no wheezes.' Occasional dry rales are present in the lower lobes posteriorly. Advised to avoid sedating medications going forward and discuss with his PMD the need for polysomnography. Will sign off at this time, thanks. Objective - Vital Signs/Intake and Output Vital Signs (last 24 hours): Temp Pulse Resp BP Pulse Ox 98.2 F 86 20 178/97 H 96 04/27/18 19:20 04/28/18 08:36 04/27/18 19:20 04/28/18 08:36 04/27/18 19:20 - Medications Medications: Current Medications Acetaminophen (Tylenol 325mg Tab) 650 mg PO Q6 PRN PRN Reason: Pain, moderate (4-7) Last Admin: 04/25/18 14:29 Dose: 650 mg Chlorthalidone (Hygroton) 25 mg PO DAILY [facility] Last Admin: 04/28/18 08:32 Dose: 25 mg Docusate Sodium (Colace) 100 mg PO BID [facility] Last Admin: 04/28/18 08:32 Dose: 100 mg Ezetimibe (Zetia) 10 mg PO DAILY [facility] Last Admin: 04/28/18 08:34 Dose: 10 mg Enoxaparin Sodium (Lovenox) 40 mg SC DAILY [facility]; Protocol Last Admin: 04/28/18 08:36 Dose: 40 mg Ferrous Sulfate (Feosol) 325 mg PO BID [facility] Last Admin: 04/28/18 08:32 Dose: 325 mg Glipizide (Glucotrol Xl) 10 mg PO DAILY [facility] Last Admin: 04/28/18 08:35 Dose: 10 mg Home Med (Quinine Sulfate [Qualaquin]) 324 mg PO DAILY [facility] Last Admin: 04/28/18 08:34 Dose: 324 mg Insulin Detemir (Levemir) 5 units SC HS [facility] Last Admin: 04/27/18 21:25 Dose: 5 u Insulin Human Lispro (Humalog) 0 units SC ACHS [facility]; Protocol Last Admin: 04/28/18 07:15 Dose: 3 units Ketorolac Tromethamine (Toradol) 10 mg PO Q6 PRN PRN Reason: Pain, moderate (4-7) Last Admin: 04/28/18 08:37 Dose: 10 mg Losartan Potassium (Cozaar) 50 mg PO DAILY [facility] Last Admin: 04/28/18 08:36 Dose: 50 mg Metoprolol Succinate (Toprol Xl) 50 mg PO DAILY [facility] Last Admin: 04/28/18 08:33 Dose: 50 mg Pantoprazole Sodium (Protonix Ec Tab) 40 mg PO DAILY [facility] Last Admin: 04/28/18 08:32 Dose: 40 mg Sitagliptin Phosphate (Januvia) 100 mg PO DAILY [facility] Last Admin: 04/28/18 08:32 Dose: 100 mg Tamsulosin HCl (Flomax) 0.4 mg PO DAILY [facility] Last Admin: 04/28/18 08:35 Dose: 0.4 mg - Labs Labs: 04/28/18 05:40 04/28/18 05:40 Assessment and Plan (1) JIM (obstructive sleep apnea) Status: Suspected (2) COPD (chronic obstructive pulmonary disease) Status: Suspected
[2018-04-28 15:30] VITALS: RESP 20
[2018-04-28] MEDS: Insulin Detemir 100 Units/ml Inj SC SCH (21:39)
[2018-04-29] MEDS: Insulin Lispro (humaLOG) 100 Units/ml Inj SC SCH (07:11)
[2018-04-29] MEDS: Enoxaparin 40 mg Syringe SC SCH (08:12)
[2018-04-29] MEDS: QUININE SULFATE 324 MG PO SCH (08:13)
[2018-04-29] MEDS: GlipiZIDE 10 mg SR Tab PO SCH (08:13)
[2018-04-29] MEDS: Pantoprazole 40 mg EC Tab PO SCH (08:13)
[2018-04-29] MEDS: Metoprolol Succinate 50 mg XL Tab PO SCH (08:13)
--- NOTE | 2018-04-29 09:24 | CP.PCM.DIS ---
Provider - Provider Date of Admission: 04/20/18 15:04 Attending physician: Richi Rubio MD Primary care physician: Dr. Carreon Consults: ortho consult Pt consult cardiology consult pulmonary consult neurology consult Time Spent in preparation of Discharge (in minutes): 15 Hospital Course - Lab Results Lab Results: Micro Results 04/24/18 16:46 Urine,Clean Catch Urine Culture - Final No Growth (<1,000 CFU/ML) Most Recent Lab Values WBC 10.9 K/uL (4.8-10.8) H 04/28/18 05:40 RBC 3.88 Mil/uL (4.40-5.90) L 04/28/18 05:40 Hgb 11.6 g/dL (12.0-18.0) L 04/28/18 05:40 Hct 34.6 % (35.0-51.0) L 04/28/18 05:40 MCV 89.1 fl (80.0-94.0) 04/28/18 05:40 MCH 29.9 pg (27.0-31.0) 04/28/18 05:40 MCHC 33.6 g/dL (33.0-37.0) 04/28/18 05:40 RDW 13.5 % (11.5-14.5) 04/28/18 05:40 Plt Count 304 K/uL (130-400) 04/28/18 05:40 MPV 8.8 fl (7.2-11.7) 04/21/18 05:50 Neut % (Auto) 75.8 % (50.0-75.0) H 04/21/18 05:50 Lymph % (Auto) 9.1 % (20.0-40.0) L 04/21/18 05:50 [place] % (Auto) 12.3 % (0.0-10.0) H 04/21/18 05:50 Eos % (Auto) 2.2 % (0.0-4.0) 04/21/18 05:50 Baso % (Auto) 0.6 % (0.0-2.0) 04/21/18 05:50 Neut # (Auto) 7.3 K/uL (1.8-7.0) H 04/21/18 05:50 Lymph # (Auto) 0.9 K/uL (1.0-4.3) L 04/21/18 05:50 [place] # (Auto) 1.2 K/uL (0.0-0.8) H 04/21/18 05:50 Eos # (Auto) 0.2 K/uL (0.0-0.7) 04/21/18 05:50 Baso # (Auto) 0.1 K/uL (0.0-0.2) 04/21/18 05:50 Neutrophils % (Manual) 75 % (42-75) 04/21/18 05:50 Band Neutrophils % 2 % (0-2) 04/21/18 05:50 Lymphocytes % (Manual) 9 % (20-50) L 04/21/18 05:50 Monocytes % (Manual) 11 % (0-10) H 04/21/18 05:50 Eosinophils % (Manual) 2 % (0-7) 04/21/18 05:50 Basophils % (Manual) 1 % (0-2) 04/21/18 05:50 Toxic Granulation Present 04/21/18 05:50 Platelet Estimate Normal (NORMAL) 04/21/18 05:50 Anisocytosis (manual) Slight 04/21/18 05:50 Sodium 138 mmol/l (132-148) 04/28/18 05:40 Potassium 3.6 MMOL/L (3.6-5.0) 04/28/18 05:40 Chloride 103 mmol/L (98-107) 04/28/18 05:40 Carbon Dioxide 31 mmol/L (22-30) H 04/28/18 05:40 Anion Gap 8 (10-20) L 04/28/18 05:40 BUN 28 mg/dl (9-20) H 04/28/18 05:40 Creatinine 1.2 mg/dl (0.8-1.5) 04/28/18 05:40 Est GFR ( Amer) > 60 04/28/18 05:40 Est GFR (Non-Af Amer) 60 04/28/18 05:40 POC Glucose (mg/dL) 235 mg/dL (65-110) H 04/29/18 05:36 Random Glucose 242 mg/dL (75-110) H 04/28/18 05:40 Calcium 9.0 mg/dL (8.4-10.2) 04/28/18 05:40 Urine Color Straw (YELLOW) 04/25/18 07:40 Urine Clarity Clear (Clear) 04/25/18 07:40 Urine pH 6.0 (5.0-8.0) 04/25/18 07:40 Ur Specific [place] 1.008 (1.003-1.030) 04/25/18 07:40 Urine Protein Negative mg/dL (NEGATIVE) 04/25/18 07:40 Urine Glucose (UA) Neg mg/dL (Normal) 04/25/18 07:40 Urine Ketones Negative mg/dL (NEGATIVE) 04/25/18 07:40 Urine Blood Negative (NEGATIVE) 04/25/18 07:40 Urine Nitrate Negative (NEGATIVE) 04/25/18 07:40 Urine Bilirubin Negative (NEGATIVE) 04/25/18 07:40 Urine Urobilinogen 0.2-1.0 mg/dL (0.2-1.0) 04/25/18 07:40 Ur Leukocyte Esterase Neg [place]/uL (Negative) 04/25/18 07:40 Urine RBC (Auto) 2 /hpf (0-3) 04/25/18 07:40 Urine Microscopic WBC 1 /hpf (0-5) 04/25/18 07:40 Urine Bacteria Rare (<OCC) 04/24/18 16:46 - Hospital Course Hospital Course: 72-year-old man with a past medical history of DM2, HTN, HLD, recently had a left total hip replacement (04/16/18), and later transferred to TCU for PT. Patient did have an episode of somnolence and unresponsiveness this stay that responded after 3 doses of narcan with patient returning to baseline with no neurodeficits. Neurology was consulted . Ct head showed no acute pathology and episode was thought to be related to narcotic sedative effect and that is why patient was taken off narcotics. Dureing this admission, physiatyry, pulmonary, cardiology and ortho followed patient He participated well with PT and at present doing well. Surgical wound healing well.He is cleared by ortho for discharge home with outpatient PT and lovenox 40 mg SQ for 10 more days on discharge Patient to follow up with ortho Dr. Lopez and PMD Dr. Carreon 1. S/p Left THR Left Hip Replacement 04/16/18 Continue PT as outpatient Pain Control with Toradol, patient to avoid narcotic medications Lovenox 40 mg Sq daily for 10 more days after discharge as per ortho recommendations patient to follow up with Dr. Lopez upon discharge 2.Altered Mental Status likely secondary to Narcotic side effect Discontinued Narcotics - resolved 3.Suspected Obstructive Sleep Apnea pulmonary consulted Patient will need to be worked up as an outpatient after he recovers from the present surgery, Avoidance of sedating medications inclusive of narcotic analgesics is recommended, Will need polysomnography at some time in the near future as an outpatient 4.Type II Diabetes controlled, chronic Glipizide 10 mg PO daily and januvia HbA1c (03/26/18) 7.1% 5.Hypertension chronic, uncontrolled Losartan 100 mg PO DAILY Metoprolol 50 mg BID Chlorthalidone 25 mg pO Clonidine 0.3 mg changed to 0.2 mg PO Q12 6.Hyperlipidemia Zetia 10 mg PO 7.DVT Prophylaxis Lovenox 40 mg Discharge Exam - Head Exam Head Exam: ATRAUMATIC, NORMAL INSPECTION, NORMOCEPHALIC - Eye Exam Eye Exam: EOMI, Normal appearance, PERRL Pupil Exam: NORMAL ACCOMODATION - ENT Exam ENT Exam: Mucous Membranes Moist, Normal Exam - Neck Exam Neck exam: Full Rom, Normal Inspection - Respiratory Exam Respiratory Exam: Clear to PA & Lateral, NORMAL BREATHING PATTERN. absent: Rales, Rhonchi, Wheezes - Cardiovascular Exam Cardiovascular Exam: REGULAR RHYTHM, RRR, +S1, +S2. absent: JVD - GI/Abdominal Exam GI & Abdominal Exam: Normal Bowel Sounds, Soft. absent: Distended, Guarding, Rebound, Tenderness - Rectal Exam Rectal Exam: Deferred - Extremities Exam Extremities exam: normal inspection, pedal pulses present - Back Exam Back exam: NORMAL INSPECTION - Neurological Exam Neurological exam: Alert, CN II-XII Intact, Oriented x3, Reflexes Normal - Psychiatric Exam Psychiatric exam: Normal Affect - Skin Skin Exam: Dry, Intact, Normal Color, Warm Discharge Plan - Discharge Medications Prescriptions: Chlorthalidone [Hygroton] 25 mg PO DAILY #30 tab cloNIDine [Catapres] 0.2 mg PO Q12 #60 tab Docusate [Colace] 100 mg PO BID #30 cap Enoxaparin [Lovenox] 40 mg SC DAILY #10 syr Ezetimibe [Zetia] 10 mg PO DAILY #30 tab Ferrous Sulfate 325 mg PO BID #60 tablet GlipiZIDE SR [Glucotrol XL] 10 mg PO DAILY #30 tab Ketorolac Tromethamine [Toradol] 10 mg PO Q6 PRN #30 tab PRN Reason: Pain, Moderate (4-7) Losartan [Cozaar] 50 mg PO DAILY #30 tab Metoprolol Succinate XL [Toprol XL] 50 mg PO DAILY #60 tab Pantoprazole [Protonix EC Tab] 40 mg PO DAILY #30 ect Quinine Sulfate [Qualaquin] 324 mg PO DAILY #30 capsule SITagliptin [Januvia] 100 mg PO DAILY #30 tab - Follow Up Plan Condition: GOOD Disposition: HOME/ ROUTINE Patient education suggested?: Yes Instructions: Total Hip Replacement (DC) Referrals: Armen Lopez III, MD [Staff Provider] - Kelechi Carreon MD [Family Provider] -
[2018-04-29 09:48] VITALS: BP 159/86; PULSE 88; TEMP 98.6; O2SAT 99
== END 2018-04-29 10:30 | disposition home health service (06) | DRG 561 ==
LOC: H.TCU 15:04
PROC: F08Z4FZ Home Management Treatment using Assistive, Adaptive, Supportive or Protective Equipment (ICD-10-PCS; principal; 2018-04-21)
PROC: F07M6FZ Therapeutic Exercise Treatment of Musculoskeletal System - Whole Body using Assistive, Adaptive, Supportive or Protective Equipment (ICD-10-PCS; 2018-04-21)
PROC: F07Z9FZ Gait Training/Functional Ambulation Treatment using Assistive, Adaptive, Supportive or Protective Equipment (ICD-10-PCS; 2018-04-21)
DX: Z47.1 Aftercare following joint replacement surgery (principal); Z96.642 Presence of left artificial hip joint; E11.9 Type 2 diabetes mellitus without complications; E78.5 Hyperlipidemia, unspecified; G47.33 Obstructive sleep apnea (adult) (pediatric); I10 Essential (primary) hypertension; J44.9 Chronic obstructive pulmonary disease, unspecified; M16.12 Unilateral primary osteoarthritis, left hip; R09.02 Hypoxemia; Z79.84 Long term (current) use of oral hypoglycemic drugs; Z79.899 Other long term (current) drug therapy; Z87.891 Personal history of nicotine dependence; Z90.49 Acquired absence of other specified parts of digestive tract

== ENCOUNTER 2018-10-06 06:03 | Inpatient (IN) | payer MEDICARE, BC ==
[2018-09-23 09:56] VITALS: BMI 31.8
--- NOTE | 2018-10-06 07:05 | CP.PCM.CON ---
History of Present Illness - History of Present Illness History of Present Illness: Orthopedic consultation Dr. Lopez 73M complains of right hip pain failed conservative mgmt and elected for THR. Had prior successful L THR 04/2018. NO history of bleeding/clotting disorder, seizure, CVA, CAD PMD: Dr. Carreon, clearance on chart PMH: DM, HTN, COPD, HLD PSH: as above, cholecystectomy, sinus, tonsils Review of Systems - Review of Systems All systems: reviewed and no additional remarkable complaints except - Musculoskeletal Musculoskeletal: As Per HPI Past Patient History - Infectious Disease Hx of Infectious Diseases: None - Tetanus Immunizations Tetanus Immunization: Unknown - Past Medical History & Family History Past Medical History?: Yes Past Family History: Reviewed and not pertinent - Past Social History Smoking Status: Former Smoker - CARDIAC Hx Cardiac Disorders: Yes Hx Hypercholesterolemia: Yes Hx Hypertension: Yes - PULMONARY Hx Respiratory Disorders: No - NEUROLOGICAL Hx Neurological Disorder: No - HEENT Hx HEENT Problems: No Other/Comment: DRY EYES - RENAL Hx Chronic Kidney Disease: No - ENDOCRINE/METABOLIC Hx Endocrine Disorders: Yes Hx Diabetes Mellitus Type 1: Yes Hx Diabetes Mellitus Type 2: Yes - HEMATOLOGICAL/ONCOLOGICAL Hx Blood Disorders: No Hx AIDS: No Hx Anemia: No Hx Blood Transfusions: No Hx Human Immunodeficiency Virus (HIV): No - INTEGUMENTARY Hx Dermatological Problems: No - MUSCULOSKELETAL/RHEUMATOLOGICAL Hx Musculoskeletal Disorders: Yes Hx Arthritis: Yes Hx Back Pain: Yes Hx Falls: Yes Hx Rheumatoid Arthritis: Yes Other/Comment: MUSCLE WEAKNESS - GASTROINTESTINAL Hx Gastrointestinal Disorders: No - GENITOURINARY/GYNECOLOGICAL Hx Genitourinary Disorders: No - PSYCHIATRIC Hx Emotional Abuse: No Hx Physical Abuse: No - SURGICAL HISTORY Hx Surgeries: Yes Hx Cholecystectomy: Yes Hx Orthopedic Surgery: Yes (left total hip replacement) Other/Comment: SINUS SURGERY;LEFT TOTAL HIP [id number];GALLBLADDER SURGERY A WHILE AGO;TONSILLECTOMY - ANESTHESIA Hx Anesthesia: Yes Hx Anesthesia Reactions: No Hx Malignant Hyperthermia: No Has any member of the family had a problem w/ anesthesia?: No Meds Allergies/Adverse Reactions: Allergies Allergy/AdvReac Type Severity Reaction Status Date / Time aspirin Allergy RASH Verified 10/06/18 06:55 Penicillins Allergy RASH Verified 10/06/18 06:55 Physical Exam - Constitutional Appears: Well, No Acute Distress - Respiratory Exam Respiratory Exam: NORMAL BREATHING PATTERN - Expanded Lower Extremities Exam Right Hip exam: normal inspection (leg lengths appear equal, +DP/PT pulses calves soft NT neg homans) Ankle exam: FULL ROM - Neurological Exam Neurological exam: Alert, Oriented x3 - Psychiatric Exam Psychiatric exam: Normal Affect, Normal Mood - Skin Skin Exam: Dry, Intact, Normal Color, Warm Results - Vital Signs Recent Vital Signs: Last Vital Signs Temp 97.8 F 10/06/18 06:38 Pulse 59 L 10/06/18 06:46 Resp 18 10/06/18 06:38 BP 140/78 10/06/18 06:38 Pulse Ox 100 10/06/18 06:38 - Labs Labs: Laboratory Results - last 24 hr 10/06/18 06:42 POC Glucose (mg/dL) 141 H Assessment & Plan (1) Primary osteoarthritis of right hip Assessment and Plan: NPO T&C medical clearance and labs on chart, reviewed for THR BS 141 d/w DR. Lopez agrees with above Status: Acute (2) HTN (hypertension) Status: Chronic (3) DM2 (diabetes mellitus, type 2) Status: Chronic (4) COPD (chronic obstructive pulmonary disease) Status: Suspected Priority: High
[2018-10-06] MEDS ORDERED: Thrombin Topical 5,000 Int Units Spray Kit ONE (07:09)
[2018-10-06] MEDS ORDERED: EPINEPHrine 1 mg/ml (1:1000) Inj ONE (07:09)
[2018-10-06] MEDS ORDERED: Bacitracin Ointment 30 GM TUBE ONE (07:09)
[2018-10-06] MEDS ORDERED: Etomidate 20 mg/10ml Inj IV ONE (07:25)
[2018-10-06] MEDS ORDERED: Rocuronium 10 mg/ml (5 ml) ONE (07:25)
[2018-10-06] MEDS ORDERED: Propofol 10 mg/ml Inj (20 ML) ONE (07:25)
[2018-10-06] MEDS ORDERED: Succinylcholine Chloride 20 mg/ml Syr (5 ml) IV ONE (07:25)
[2018-10-06] MEDS ORDERED: Morphine 1 mg/ml preservative-free Inj(Duramorph) ONE (07:37)
[2018-10-06] MEDS ORDERED: Midazolam 2 MG/2 ML VIAL ONE (07:37)
[2018-10-06] MEDS ORDERED: Lactated Ringer's 1,000 ML IV ONE ×2 (07:50)
[2018-10-06] MEDS ORDERED: Dexamethasone 4 mg/1 ml ONE (09:08)
[2018-10-06] MEDS ORDERED: EPINEPHrine 1 mg/ml (1:1000) Inj IV ONE ×2 (09:33→10:30)
[2018-10-06] MEDS ORDERED: Thrombin Topical 5,000 Int Units Spray Kit TOP ONE ×2 (09:34→10:00)
[2018-10-06] MEDS ORDERED: Absorbable Gelatin Sponge Size 12-7 TP ONE ×2 (09:35→10:00)
[2018-10-06] MEDS ORDERED: Tranexamic Acid 1,000 MG in Sodium Chloride 0.9% 100 ML IVPB ONE (10:00)
[2018-10-06] MEDS ORDERED: Neostigmine 1:1000 (1 mg/ml) Inj ONE (11:05)
[2018-10-06] MEDS ORDERED: HEMOSTATIC MATRIX 10 ML DIS.NEEDLE TOP ONE (11:30)
[2018-10-06] MEDS ORDERED: Bacitracin Opht OINT 3.5GM OU ONE (11:33)
[2018-10-06] MEDS: Lactated Ringer's 1,000 ML IV SCH ×2 (11:38→21:45)
[2018-10-06] MEDS: HYDROmorphone 0.5 mg/0.5 ml ISec IVP PRN ×2 (11:50→12:05)
--- NOTE | 2018-10-06 12:48 | PCM.SURG1 ---
Surgeon's Initial Post Op Note - Surgeon's Notes Surgeon: Jessica Kettle Skimmer: RAISSA López/ 2nd assist B Stock Type of Anesthesia: General Endo, Spinal Anesthesia Administered By: Dr Argueta Pre-Operative Diagnosis: Primary O/A Right hip Operative Findings: primary O/A R hip. synovits R hip. iliopsoas contracture. capsular contracture Post-Operative Diagnosis: as above Operation Performed: R THR. femoral neck osteotomy. release iliopsoas tendon. capsular release. autograft bone graft Specimen/Specimens Removed: bone/cartialge/synvoium Estimated Blood Loss: EBL {In ML}: 125 Blood Products Given: N/A Drains Used: No Drains Post-Op Condition: Fair Date of Surgery/Procedure: 10/06/18 Time of Surgery/Procedure: 09:00 (time in room6:750)
--- NOTE | 2018-10-06 16:27 | CP.PCM.HP ---
<EnochRachel - Last Filed: 10/06/18 17:41> History of Present Illness - History of Present Illness History of Present Illness: Patient seen and examined with Dr. Jaramillo s/p RTHR. 72 y/o male PMHx of DM2, HTN & arthritis and left THR on 04/16/18 was admitted for Right THR after failing conservative management. . Patient reports pain in right hip is minimal, but reports difficulty with outpatient physical therapy as a results. He denies any f/c/n/d/cp/sob. Surgery was performed today. PMD: Dr. 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 has been clean > 30 yrs Present on Admission - Present on Admission Any Indicators Present on Admission: No History of DVT/PE: No History of Uncontrolled Diabetes: No Urinary Catheter: No Decubitus Ulcer Present: No Past Patient History - Infectious Disease Hx of Infectious Diseases: None - Tetanus Immunizations Tetanus Immunization: Unknown - Past Medical History & Family History Past Medical History?: Yes Past Family History: Reviewed and not pertinent - Past Social History Smoking Status: Former Smoker - CARDIAC Hx Cardiac Disorders: Yes Hx Hypercholesterolemia: Yes Hx Hypertension: Yes - PULMONARY Hx Respiratory Disorders: No - NEUROLOGICAL Hx Neurological Disorder: No - HEENT Hx HEENT Problems: No Other/Comment: DRY EYES - RENAL Hx Chronic Kidney Disease: No - ENDOCRINE/METABOLIC Hx Endocrine Disorders: Yes Hx Diabetes Mellitus Type 1: Yes Hx Diabetes Mellitus Type 2: Yes - HEMATOLOGICAL/ONCOLOGICAL Hx Blood Disorders: No Hx AIDS: No Hx Anemia: No Hx Blood Transfusions: No Hx Human Immunodeficiency Virus (HIV): No - INTEGUMENTARY Hx Dermatological Problems: No - MUSCULOSKELETAL/RHEUMATOLOGICAL Hx Musculoskeletal Disorders: Yes Hx Arthritis: Yes Hx Back Pain: Yes Hx Falls: Yes Hx Rheumatoid Arthritis: Yes Other/Comment: MUSCLE WEAKNESS - GASTROINTESTINAL Hx Gastrointestinal Disorders: No - GENITOURINARY/GYNECOLOGICAL Hx Genitourinary Disorders: No - PSYCHIATRIC Hx Emotional Abuse: No Hx Physical Abuse: No - SURGICAL HISTORY Hx Surgeries: Yes Hx Cholecystectomy: Yes Hx Orthopedic Surgery: Yes (left total hip replacement) Other/Comment: SINUS SURGERY;LEFT TOTAL HIP [id number];GALLBLADDER THOMAS RGERY A WHILE AGO;TONSILLECTOMY - ANESTHESIA Hx Anesthesia: Yes Hx Anesthesia Reactions: No Hx Malignant Hyperthermia: No Has any member of the family had a problem w/ anesthesia?: No Meds Allergies/Adverse Reactions: Allergies Allergy/AdvReac Type Severity Reaction Status Date / Time aspirin Allergy RASH Verified 10/06/18 06:55 Penicillins Allergy RASH Verified 10/06/18 06:55 Physical Exam - Constitutional Appears: Well, Non-toxic - Head Exam Head Exam: ATRAUMATIC, NORMAL INSPECTION - Eye Exam Eye Exam: EOMI - ENT Exam ENT Exam: Mucous Membranes Moist - Respiratory Exam Respiratory Exam: Clear to Auscultation Bilateral. absent: Rhonchi, Wheezes - Cardiovascular Exam Cardiovascular Exam: REGULAR RHYTHM, +S1, +S2 - GI/Abdominal Exam GI & Abdominal Exam: Normal Bowel Sounds, Soft. absent: Distended, Firm, Guarding, Tenderness - Extremities Exam Extremities exam: Negative for: calf tenderness, normal inspection Additional comments: ROM intact of b/l lower extremity - Neurological Exam Neurological exam: Alert, Oriented x3 Additional comments: sensation intact in left & right lower digits - Psychiatric Exam Psychiatric exam: Normal Affect, Normal Mood Results - Vital Signs Recent Vital Signs: Last Vital Signs Temp 97.1 F L 10/06/18 13:50 Pulse 74 10/06/18 13:50 Resp 20 10/06/18 13:50 BP 155/80 H 10/06/18 13:50 Pulse Ox 100 10/06/18 13:50 - Labs Labs: Laboratory Results - last 24 hr 10/06/18 10/06/18 10/06/18 06:20 06:42 11:45 POC Glucose (mg/dL) 141 H 177 H Blood Type O POSITIVE Antibody Screen Negative Crossmatch See Detail BBK History Checked Patient has bt 10/06/18 16:02 POC Glucose (mg/dL) 182 H Blood Type Antibody Screen Crossmatch BBK History Checked Assessment & Plan - Assessment and Plan (Free Text) Assessment: 72 y/o male PMHx of DM2, HTN & arthritis and left THR on 04/16/18 was admitted for Right THR after failing conservative management. 1. Left THR -C/w management as per surgery -FU PT recommendations -C/w tylenol & oxycodone prn pain 2. DM2 -C/w glipizide, Januvia, -Sliding scale 3. HTN -C/w cozaar & clonidine 4. DVT prophylaxis -lovenox 40mg SC QD - <Elma Jaramillo - Last Filed: 10/06/18 18:01> Results - Vital Signs Recent Vital Signs: Last Vital Signs Temp 97.1 F L 10/06/18 14:05 Pulse 73 10/06/18 14:05 Resp 20 10/06/18 14:05 BP 143/85 10/06/18 14:05 Pulse Ox 100 10/06/18 14:05 - Labs Labs: Laboratory Results - last 24 hr 10/06/18 10/06/18 10/06/18 06:20 06:42 11:45 POC Glucose (mg/dL) 141 H 177 H Blood Type O POSITIVE Antibody Screen Negative Crossmatch See Detail BBK History Checked Patient has bt 10/06/18 16:02 POC Glucose (mg/dL) 182 H Blood Type Antibody Screen Crossmatch BBK History Checked Attending/Attestation - Attestation I have personally seen and examined this patient.: Yes I have fully participated in the care of the patient.: Yes I have reviewed all pertinent clinical information: Yes Notes (Text): Primary OA , bilateral Hip, Hx of THR , left s/p Right THR DM type II on Insulin HTN - Right THR done by Dr Jessica Kaplan for DVT proph - PT/OT consult - IV Clinda x 3 doses for Surg Abx Prophylaxis - Pain mgt - restart Insulin post op, Erick Accucheck with coverage - restart Clonidine but start lower dose at 0.1 mg q12 instead of 0.2 BID
--- NOTE | 2018-10-06 16:37 | RAD ---
PROCEDURE: Right Hip Radiographs. HISTORY: s/p R POOJA COMPARISON: None. TECHNIQUE: 2 views obtained. FINDINGS: BONES: Satisfactory position and alignment of the components right bipolar hip prosthesis. JOINTS: Normal. SOFT TISSUES: Expected findings in the soft tissues related to right POOJA noted. OTHER FINDINGS: None. IMPRESSION: Satisfactory postoperative status.
--- NOTE | 2018-10-06 17:06 | RAD ---
Date of service: 10/06/2018 PROCEDURE: Fluoroscopic assistance in excess of 1 hour. HISTORY: RIGHT HIP COMPARISON: None TECHNIQUE: Standard protocol for this study/examination. FINDINGS: Total fluoroscopic time (continuous mode) utilized during the procedure 16.9 seconds. Total exam DLP: 4.67 (mGy). IMPRESSION: Submitted images from the current procedure: 10.0
[2018-10-06] MEDS: Clindamycin 600mg/50ml D5W 600 MG/50 ML VIAL IVPB SCH (18:16)
[2018-10-06] MEDS: Insulin Detemir 100 Units/ml Inj SC SCH (18:17)
[2018-10-06] MEDS: Sodium Chloride 0.9% 1,000 ML IV SCH ×2 (18:19→21:45)
[2018-10-06] MEDS ORDERED: Docusate-Senna 50 mg-8.6 mg Tab PO SCH (22:00)
[2018-10-07] MEDS: Clindamycin 600mg/50ml D5W 600 MG/50 ML VIAL IVPB SCH (01:14)
[2018-10-07 06:49] LABS: HEMOGLOBIN 12.5 g/dL (12.0-18.0); MEAN CELL VOLUME 88.7 fl (80.0-94.0); MEAN CORPUSCULAR HEMOGLOBIN 29.1 pg (27.0-31.0); MEAN CORPUSCULAR HGB CONC 32.8 g/dL (33.0-37.0); RBC 4.29 Mil/uL (4.40-5.90); RED CELL DISTRIBUTION WIDTH 15.3 % (11.5-14.5); WHITE BLOOD COUNT 9.1 K/uL (4.8-10.8)
[2018-10-07 06:50] LABS: INR 1.1; PROTHROMBIN TIME 12.5 Seconds (9.8-13.1)
[2018-10-07 06:53] LABS: PARTIAL THROMBOPLASTIN TIME 32.2 Seconds (25.6-37.1)
[2018-10-07 06:57] LABS: BLOOD UREA NITROGEN 19 mg/dl (9-20); CALCIUM 8.9 mg/dL (8.4-10.2); GFR NON-AFRICAN AMERICAN > 60
[2018-10-07 08:26] VITALS: RESP 20; TEMP 98.7
--- NOTE | 2018-10-07 08:54 | CP.PCM.PN ---
Subjective - Date & Time of Evaluation Date of Evaluation: 10/07/18 Time of Evaluation: 08:00 - Subjective Subjective: Patient seen and examined at bedside. Pain well controlled. Tolerating diet. No acute events overnight. Denies CP/SOB/fever/dizziness. Objective - Vital Signs/Intake and Output Vital Signs (last 24 hours): Temp Pulse Resp BP Pulse Ox 98.7 F 87 20 130/74 99 10/07/18 08:24 10/07/18 08:24 10/07/18 08:24 10/07/18 08:24 10/07/18 08:24 Intake and Output: 10/07/18 10/07/18 06:59 18:59 Output Total 500 Balance -500 - Medications Medications: Current Medications Acetaminophen (Tylenol 325mg Tab) 650 mg PO Q4 PRN PRN Reason: Fever 101 degrees fahrenheit Clonidine HCl (Catapres) 0.1 mg PO Q12 [facility] Last Admin: 10/06/18 22:16 Dose: 0.1 mg Enoxaparin Sodium (Lovenox) 40 mg SC DAILY [facility]; Protocol Ferrous Sulfate (Feosol) 325 mg PO BIDWM [facility] Last Admin: 10/06/18 18:16 Dose: 325 mg Folic Acid (Folic Acid) 1 mg PO DAILY [facility] Glipizide (Glucotrol) 10 mg PO DAILY [facility] Lactated Ringer's (Lactated Ringer's) 1,000 mls @ 100 mls/hr IV .Q10H [facility] Last Admin: 10/06/18 21:45 Dose: Not Given Acetaminophen (Ofirmev) 100 mls @ 400 mls/hr IVPB Q6H [facility]; Protocol Stop: 10/07/18 11:46 Last Admin: 10/07/18 06:17 Dose: 400 mls/hr Sodium Chloride (Sodium Chloride 0.9%) 1,000 mls @ 100 mls/hr IV .Q10H [facility] Stop: 10/07/18 11:43 Last Admin: 10/06/18 21:45 Dose: Not Given Insulin Detemir (Levemir) 15 units SC BID [facility] Last Admin: 10/06/18 18:17 Dose: 15 units Losartan Potassium (Cozaar) 100 mg PO DAILY [facility] Ondansetron HCl (Zofran Inj) 4 mg IVP ONCE PRN PRN Reason: Nausea/Vomiting Oxycodone HCl (Oxycodone Immediate Release Tab) 5 mg PO Q4 PRN PRN Reason: Pain, moderate (4-7) Oxycodone HCl (Oxycodone Immediate Release Tab) 10 mg PO Q4 PRN PRN Reason: Pain, severe (8-10) Pantoprazole Sodium (Protonix Ec Tab) 40 mg PO DAILY [facility] Senna/Docusate Sodium (Senokot S 50 Mg-8.6 Mg) 2 tab PO [facility] Last Admin: 10/06/18 22:15 Dose: 2 tab Sitagliptin Phosphate (Januvia) 100 mg PO DAILY [facility] - Labs Labs: 10/07/18 05:20 10/07/18 05:20 PT 12.5 Seconds (9.8-13.1) 10/07/18 05:20 INR 1.1 10/07/18 05:20 APTT 32.2 Seconds (25.6-37.1) 10/07/18 05:20 - Extremities Exam Additional comments: R hip: Dressings CDI mild diffuse swelling sensation intact SP/DP/TN motor intact EHL/FHl/TA/G pedal pulse intact calves soft NT b/l Assessment and Plan (1) Primary osteoarthritis of right hip Assessment & Plan: POD# 1 s/p R POOJA -PT/OT FWB -orthopedically stable for d/c to home today -f/u in office this Saturday -DVT ppx with lovenox 40 mg daily -d/w Dr. Lopez who agrees with above Status: Acute
[2018-10-07] MEDS ORDERED: Pantoprazole 40 mg EC Tab PO SCH (09:00)
[2018-10-07] MEDS ORDERED: Enoxaparin 40 mg Syringe SC SCH (09:00)
[2018-10-07] MEDS: Insulin Detemir 100 Units/ml Inj SC SCH (09:13)
[2018-10-07] MEDS: Sodium Chloride 0.9% 1,000 ML IV SCH (09:14)
--- NOTE | 2018-10-07 11:26 | CP.PCM.CON ---
History of Present Illness - History of Present Illness History of Present Illness: seen on rounds full report to follow 73 yo diabetic male with hx severe OA admitted for right THR PMH HTN DMII OA HEP C ( treated ) s/p Left THR Neuropathy JIM COPD DH non drinker FH DM allergy PCN Review of Systems - Review of Systems All systems: reviewed and no additional remarkable complaints except - Constitutional Constitutional: As Per HPI - EENT Eyes: absent: As Per HPI, Blind Spots, Blurred Vision, Change in Vision, Decreased Night Vision, Diplopia, Discharge, Dry Eye, Exophthalmos, Floaters, Irritation, Itchy Eyes, Loss of Peripheral Vision, Pain, Photophobia, Requires Corrective Lenses, Sees Flashes, Spots in Vision, Tunnel Vision, Other Visual Disturbances, Loss of Vision, Other Ears: absent: As Per HPI, Decreased Hearing, Ear Discharge, Ear Pain, Tinnitus, Abnormal Hearing, Disequilibrium, Dizziness, Other Nose/Mouth/Throat: absent: As Per HPI, Epistaxis, Nasal Congestion, Nasal Discharge, Nasal Obstruction, Nasal Trauma, Nose Pain, Post Nasal Drip, Sinus Pain, Sinus Pressure, Bleeding Gums, Change in Voice, Dental Pain, Dry Mouth, Dysphagia, Halitosis, Hoarsness, Lip Swelling, Mouth Lesions, Mouth Pain, Odynophagia, Sore Throat, Throat Swelling, Tongue Swelling, Facial Pain, Neck Pain, Neck Mass, Other - Cardiovascular Cardiovascular: absent: As Per HPI, Acrocyanosis, Chest Pain, Chest Pain at Rest, Chest Pain with Activity, Claudication, Diaphoresis, Dyspnea, Dyspnea on Exertion, Edema, Irregular Heart Rhythm, Pain Radiating to Arm/Neck/Jaw, Leg E anna marie, Leg Ulcers, Lightheadedness, Orthopnea, Palpitations, Paroxysmal Nocturnal Dyspnea, Pedal Edema, Radiating Pain, Rapid Heart Rate, Slow Heart Rate, Syncope, Other - Respiratory Respiratory: absent: As Per HPI, Cough, Dyspnea, Hemoptysis, Dyspnea on Exerti on, Wheezing, Snoring, Stridor, Pain on Inspiration, Chest Congestion, Excessive Mucous Production, Change in Mucous Color, Pain with Coughing, Other - Gastrointestinal Gastrointestinal: absent: As Per HPI, Abdominal Pain, Belching, Bloating, Change in Bowel Habits, Change in Stool Character, Coffee Ground Emesis, Constipation, Cramping, Diarrhea, Dyspepsia, Dysphagia, Early Satiety, Excessive Flatus, Fecal Incontinence, Heartburn, Hematemesis, Hematochezia, Loose Stools, Melena, Nausea, Odynophagia, Temesmus, Vomiting, Other - Genitourinary Genitourinary: absent: As Per HPI, Change in Urinary Stream, Difficulty Ur inating, Dysuria, Flank Pain, Hematuria, Pyuria, Nocturia, Urinary Incontinence, Urinary Frequency, Urinary Hesitance, Urinary Urgency, Voiding Freq/Small Amts, Freq UTI, Hx Renal/Bladder Calculi, Hx /Renal Surgery, Bladder Distension, Other - Musculoskeletal Musculoskeletal: As Per HPI - Integumentary Integumentary: absent: As Per HPI, Acne, Alopecia, Bleeding Lesions, Change in Hair, Change in Nails, Change in Pigmentation, Changing Lesions, Dry Skin, Erythema, Furuncle, Hirsutism, Lesions, New Lesions, Non-Healing Lesions, Photosensitivity, Pruritus, Rash, Skin Pain, Skin Ulcer, Sores, Striae, Swelling, Unusual Bruising, Wounds, Jaundice, Other - Neurological Neurological: As Per HPI - Psychiatric Psychiatric: absent: As Per HPI, Abnormal Sleep Pattern, Anhedonia, Anxiety, Auditory Hallucinations, Behavioral Changes, Change in Appetite, Change in Libido, Confusion, Depression, Difficulty Concentrating, Hallucinations, Homicid al Ideation, Hopelessness, Irritability, Memory Loss, Mood Swings, Panic Attacks, Paranoia, Suicidal Ideation, Visual Hallucinations, Tactile Hallucinations, Other - Endocrine Endocrine: absent: As Per HPI, Change in Body Appearance, Change in Libido, Cold Intolorance, Deepening of Voice, Excessive Sweating, Fatigue, Flushing, Heat Intolorance, Increase in Ring/Shoe/Hat Size, Palpitations, Polydipsia, Polyphagia, Polyuria, Other - Hematologic/Lymphatic Hematologic: absent: As Per HPI, Easy Bleeding, Easy Bruising, Lymphadenopathy, Other Past Patient History - Infectious Disease Hx of Infectious Diseases: None - Tetanus Immunizations Tetanus Immunization: Unknown - Past Medical History & Family History Past Medical History?: Yes Past Family History: Reviewed and not pertinent - Past Social History Smoking Status: Former Smoker - CARDIAC Hx Cardiac Disorders: Yes Hx Hypercholesterolemia: Yes Hx Hypertension: Yes - PULMONARY Hx Respiratory Disorders: No - NEUROLOGICAL Hx Neurological Disorder: No - HEENT Hx HEENT Problems: No Other/Comment: DRY EYES - RENAL Hx Chronic Kidney Disease: No - ENDOCRINE/METABOLIC Hx Endocrine Disorders: Yes Hx Diabetes Mellitus Type 1: Yes Hx Diabetes Mellitus Type 2: Yes - HEMATOLOGICAL/ONCOLOGICAL Hx Blood Disorders: No Hx AIDS: No Hx Anemia: No Hx Blood Transfusions: No Hx Human Immunodeficiency Virus (HIV): No - INTEGUMENTARY Hx Dermatological Problems: No - MUSCULOSKELETAL/RHEUMATOLOGICAL Hx Musculoskeletal Disorders: Yes Hx Arthritis: Yes Hx Back Pain: Yes Hx Falls: Yes Hx Rheumatoid Arthritis: Yes Other/Comment: MUSCLE WEAKNESS - GASTROINTESTINAL Hx Gastrointestinal Disorders: No - GENITOURINARY/GYNECOLOGICAL Hx Genitourinary Disorders: No - PSYCHIATRIC Hx Emotional Abuse: No Hx Physical Abuse: No - SURGICAL HISTORY Hx Surgeries: Yes Hx Cholecystectomy: Yes Hx Orthopedic Surgery: Yes (left total hip replacement) Other/Comment: SINUS SURGERY;LEFT TOTAL HIP [id number];GALLBLADDER SURG KAVON A WHILE AGO;TONSILLECTOMY - ANESTHESIA Hx Anesthesia: Yes Hx Anesthesia Reactions: No Hx Malignant Hyperthermia: No Has any member of the family had a problem w/ anesthesia?: No Meds Home Medications: Home Medication List Medication Instructions Recorded Confirmed Type Cholecalciferol [Vitamin D 1000 IU] 2,000 intlu PO DAILY tab 10/07/18 Rx Enoxaparin [Lovenox] 40 mg SC DAILY 14 Days #14 syr 10/07/18 Rx Oxycodone HCl 5 mg PO Q6 #20 tablet 10/07/18 Rx Allergies/Adverse Reactions: Allergies Allergy/AdvReac Type Severity Reaction Status Date / Time aspirin Allergy RASH Verified 10/06/18 06:55 Penicillins Allergy RASH Verified 10/06/18 06:55 - Medications Medications: Current Medications Acetaminophen (Tylenol 325mg Tab) 650 mg PO Q4 PRN PRN Reason: Fever 101 degrees fahrenheit Clonidine HCl (Catapres) 0.1 mg PO Q12 [facility] Last Admin: 10/07/18 09:09 Dose: 0.1 mg Enoxaparin Sodium (Lovenox) 40 mg SC DAILY [facility]; Protocol Ferrous Sulfate (Feosol) 325 mg PO BIDWM [facility] Last Admin: 10/07/18 09:10 Dose: 325 mg Folic Acid (Folic Acid) 1 mg PO DAILY [facility] Last Admin: 10/07/18 09:11 Dose: 1 mg Glipizide (Glucotrol) 10 mg PO DAILY [facility] Last Admin: 10/07/18 09:11 Dose: 10 mg Lactated Ringer's (Lactated Ringer's) 1,000 mls @ 100 mls/hr IV .Q10H [facility] Last Admin: 10/06/18 21:45 Dose: Not Given Acetaminophen (Ofirmev) 100 mls @ 400 mls/hr IVPB Q6H [facility]; Protocol Stop: 10/07/18 11:46 Last Admin: 10/07/18 06:17 Dose: 400 mls/hr Sodium Chloride (Sodium Chloride 0.9%) 1,000 mls @ 100 mls/hr IV .Q10H [facility] Stop: 10/07/18 11:43 Last Admin: 10/07/18 09:14 Dose: Not Given Insulin Detemir (Levemir) 15 units SC BID [facility] Last Admin: 10/07/18 09:13 Dose: 15 units Losartan Potassium (Cozaar) 100 mg PO DAILY [facility] Last Admin: 10/07/18 09:10 Dose: 100 mg Ondansetron HCl (Zofran Inj) 4 mg IVP ONCE PRN PRN Reason: Nausea/Vomiting Oxycodone HCl (Oxycodone Immediate Release Tab) 5 mg PO Q4 PRN PRN Reason: Pain, moderate (4-7) Oxycodone HCl (Oxycodone Immediate Release Tab) 10 mg PO Q4 PRN PRN Reason: Pain, severe (8-10) Last Admin: 10/07/18 10:46 Dose: 10 mg Pantoprazole Sodium (Protonix Ec Tab) 40 mg PO DAILY [facility] Last Admin: 10/07/18 09:13 Dose: 40 mg Senna/Docusate Sodium (Senokot S 50 Mg-8.6 Mg) 2 tab PO HS [facility] Last Admin: 10/06/18 22:15 Dose: 2 tab Sitagliptin Phosphate (Januvia) 100 mg PO DAILY [facility] Last Admin: 10/07/18 09:12 Dose: 100 mg Physical Exam - Constitutional Appears: No Acute Distress - Head Exam Head Exam: ATRAUMATIC, NORMOCEPHALIC - Eye Exam Eye Exam: absent: Scleral icterus - ENT Exam ENT Exam: Mucous Membranes Dry - Neck Exam Neck exam: Negative for: Lymphadenopathy - Respiratory Exam Respiratory Exam: Decreased Breath Sounds, Clear to Auscultation Bilateral - Cardiovascular Exam Cardiovascular Exam: REGULAR RHYTHM, +S1, +S2 - GI/Abdominal Exam GI & Abdominal Exam: Diminished Bowel Sounds, Soft. absent: Tenderness - Rectal Exam Rectal Exam: Deferred - Exam Exam: NORMAL INSPECTION - Extremities Exam Extremities exam: Positive for: pedal pulses present. Negative for: calf tenderness, pedal edema, tenderness - Back Exam Back exam: absent: CVA tenderness (L), CVA tenderness (R) - Neurological Exam Neurological exam: Alert, CN II-XII Intact, Oriented x3, Reflexes Normal - Psychiatric Exam Psychiatric exam: Normal Mood - Skin Skin Exam: Dry Results - Vital Signs Recent Vital Signs: Last Vital Signs Temp 98.7 F 10/07/18 08:24 Pulse 87 10/07/18 09:10 Resp 20 10/07/18 08:24 BP 130/74 10/07/18 09:10 Pulse Ox 99 10/07/18 08:24 - Labs Result Diagrams: 10/07/18 05:20 10/07/18 05:20 Labs: Laboratory Results - last 24 hr 10/06/18 10/06/18 10/06/18 11:45 16:02 21:38 WBC RBC Hgb Hct MCV MCH MCHC RDW Plt Count PT INR APTT Sodium Potassium Chloride Carbon Dioxide Anion Gap BUN Creatinine Est GFR ( Amer) Est GFR (Non-Af Amer) POC Glucose (mg/dL) 177 H 182 H 239 H Random Glucose Calcium 10/07/18 10/07/18 10/07/18 05:20 05:20 05:20 WBC 9.1 RBC 4.29 L Hgb 12.5 Hct 38.0 MCV 88.7 MCH 29.1 MCHC 32.8 L RDW 15.3 H Plt Count 164 PT 12.5 INR 1.1 APTT 32.2 Sodium 134 Potassium 4.0 Chloride 99 Carbon Dioxide 28 Anion Gap 11 BUN 19 Creatinine 1.1 Est GFR ( Amer) > 60 Est GFR (Non-Af Amer) > 60 POC Glucose (mg/dL) Random Glucose 128 H Calcium 8.9 10/07/18 05:20 WBC RBC Hgb Hct MCV MCH MCHC RDW Plt Count PT INR APTT Sodium Potassium Chloride Carbon Dioxide Anion Gap BUN Creatinine Est GFR ( Amer) Est GFR (Non-Af Amer) POC Glucose (mg/dL) 141 H Random Glucose Calcium Assessment & Plan (1) Primary osteoarthritis of right hip Status: Acute (2) Status post total hip replacement, left Status: Acute (3) DM2 (diabetes mellitus, type 2) Status: Chronic (4) HTN (hypertension) Status: Chronic (5) COPD (chronic obstructive pulmonary disease) Status: Suspected Priority: High (6) JIM (obstructive sleep apnea) Status: Suspected Priority: High - Assessment and Plan (Free Text) Assessment: orders reviewed agree with your plan
[2018-10-07] MEDS ORDERED: oxyCODONE 10 mg Immediate Release Tab PO PRN (11:41)
[2018-10-07] MEDS ORDERED: oxyCODONE 5 mg Immediate Release Tab PO PRN (11:41)
[2018-10-07 11:53] VITALS: PULSE 98
--- NOTE | 2018-10-07 12:25 | CP.PCM.DIS ---
<Rachel Kendall - Last Filed: 10/07/18 16:18> Provider - Provider Date of Admission: 10/06/18 11:41 Attending physician: Elma Jaramillo MD Consults: 10/06/18 11:42 Case Management Referral Routine Comment: Physician Instructions: Reason For Exam: Reason for Referral: Discharge Planning 10/06/18 13:26 Physician Consult Routine Comment: Consulting Provider: Kelechi Carreon Consulting Physician: Kelechi Carreon Reason for Consult: postop ID mgmt 10/06/18 14:21 Orthopedic Consult Routine Comment: Consulting Provider: Armen Martínez III Consulting Physician: Armen Martínez III Reason for Consult: THR Time Spent in preparation of Discharge (in minutes): 60 Hospital Course - Lab Results Lab Results: Most Recent Lab Values WBC 9.1 K/uL (4.8-10.8) 10/07/18 05:20 RBC 4.29 Mil/uL (4.40-5.90) L 10/07/18 05:20 Hgb 12.5 g/dL (12.0-18.0) 10/07/18 05:20 Hct 38.0 % (35.0-51.0) 10/07/18 05:20 MCV 88.7 fl (80.0-94.0) 10/07/18 05:20 MCH 29.1 pg (27.0-31.0) 10/07/18 05:20 MCHC 32.8 g/dL (33.0-37.0) L 10/07/18 05:20 RDW 15.3 % (11.5-14.5) H 10/07/18 05:20 Plt Count 164 K/uL (130-400) 10/07/18 05:20 PT 12.5 Seconds (9.8-13.1) 10/07/18 05:20 INR 1.1 10/07/18 05:20 APTT 32.2 Seconds (25.6-37.1) 10/07/18 05:20 Sodium 134 mmol/l (132-148) 10/07/18 05:20 Potassium 4.0 MMOL/L (3.6-5.0) 10/07/18 05:20 Chloride 99 mmol/L (98-107) 10/07/18 05:20 Carbon Dioxide 28 mmol/L (22-30) 10/07/18 05:20 Anion Gap 11 (10-20) 10/07/18 05:20 BUN 19 mg/dl (9-20) 10/07/18 05:20 Creatinine 1.1 mg/dl (0.8-1.5) 10/07/18 05:20 Est GFR ( Amer) > 60 10/07/18 05:20 Est GFR (Non-Af Amer) > 60 10/07/18 05:20 POC Glucose (mg/dL) 234 mg/dL (65-110) H 10/07/18 11:25 Random Glucose 128 mg/dL (75-110) H 10/07/18 05:20 Calcium 8.9 mg/dL (8.4-10.2) 10/07/18 05:20 Blood Type O POSITIVE 10/06/18 06:20 Antibody Screen Negative 10/06/18 06:20 Crossmatch See Detail 10/06/18 06:20 BBK History Checked Patient has bt 10/06/18 06:20 - Hospital Course Hospital Course: 72 y/o male PMHx of DM2, HTN & arthritis and left THR on 04/16/18 was admitted 10/06/2018 for Right THR after failing conservative management. Patient was seen and examined this morning sitting upright in bed stating pain is well controlled with pain med regimen. Discharge home with & fu with Dr. Martínez. 1. Right THR -Recommendations as per surgical team -lovenox 40mg Sq daily x 2wks -Oxycodone 5mg Q6 x 5 days 2. DM2 -C/whome meds 3. HTN -C/w home meds Discharge Exam - Head Exam Head Exam: ATRAUMATIC, NORMAL INSPECTION - Eye Exam Eye Exam: EOMI - ENT Exam ENT Exam: Mucous Membranes Moist - Respiratory Exam Respiratory Exam: Clear to PA & Lateral - Cardiovascular Exam Cardiovascular Exam: REGULAR RHYTHM, +S1, +S2 - GI/Abdominal Exam GI & Abdominal Exam: Normal Bowel Sounds, Soft. absent: Guarding, Rigid, Tenderness - Extremities Exam Additional comments: dressing on right hip-clean, dry, and intact; sensation to touch intact b/l - Neurological Exam Neurological exam: Alert, Oriented x3 - Psychiatric Exam Psychiatric exam: Normal Mood - Skin Skin Exam: Dry Discharge Plan - Discharge Medications Prescriptions: Enoxaparin [Lovenox] 40 mg SC DAILY 14 Days #14 syr Oxycodone HCl 5 mg PO Q6 #20 tablet - Follow Up Plan Condition: GOOD Disposition: HOME/ ROUTINE Instructions: Total Hip Replacement (DC), Weight-Bearing Restrictions Additional Instructions: full weight bearing status follow up with dr martínez 1 week or as indicated by surgeon Referrals: Armen Martínez III, MD [Staff Provider] - Kelechi Carreon MD [Family Provider] - <Elma Jaramillo - Last Filed: 10/07/18 19:55> Provider - Provider Date of Admission: 10/06/18 11:41 Attending physician: Elma Jaramillo MD Consults: 10/06/18 11:42 Case Management Referral Routine Comment: Physician Instructions: Reason For Exam: Reason for Referral: Discharge Planning 10/06/18 13:26 Physician Consult Routine Comment: Consulting Provider: Kelechi Carreon Consulting Physician: Kelechi Carreon Reason for Consult: postop ID mgmt 10/06/18 14:21 Orthopedic Consult Routine Comment: Consulting Provider: Armen Martínez III Consulting Physician: Armen Martínez III Reason for Consult: THR Hospital Course - Lab Results Lab Results: Most Recent Lab Values WBC 9.1 K/uL (4.8-10.8) 10/07/18 05:20 RBC 4.29 Mil/uL (4.40-5.90) L 10/07/18 05:20 Hgb 12.5 g/dL (12.0-18.0) 10/07/18 05:20 Hct 38.0 % (35.0-51.0) 10/07/18 05:20 MCV 88.7 fl (80.0-94.0) 10/07/18 05:20 MCH 29.1 pg (27.0-31.0) 10/07/18 05:20 MCHC 32.8 g/dL (33.0-37.0) L 10/07/18 05:20 RDW 15.3 % (11.5-14.5) H 10/07/18 05:20 Plt Count 164 K/uL (130-400) 10/07/18 05:20 PT 12.5 Seconds (9.8-13.1) 10/07/18 05:20 INR 1.1 10/07/18 05:20 APTT 32.2 Seconds (25.6-37.1) 10/07/18 05:20 Sodium 134 mmol/l (132-148) 10/07/18 05:20 Potassium 4.0 MMOL/L (3.6-5.0) 10/07/18 05:20 Chloride 99 mmol/L (98-107) 10/07/18 05:20 Carbon Dioxide 28 mmol/L (22-30) 10/07/18 05:20 Anion Gap 11 (10-20) 10/07/18 05:20 BUN 19 mg/dl (9-20) 10/07/18 05:20 Creatinine 1.1 mg/dl (0.8-1.5) 10/07/18 05:20 Est GFR ( Amer) > 60 10/07/18 05:20 Est GFR (Non-Af Amer) > 60 10/07/18 05:20 POC Glucose (mg/dL) 234 mg/dL (65-110) H 10/07/18 11:25 Random Glucose 128 mg/dL (75-110) H 10/07/18 05:20 Calcium 8.9 mg/dL (8.4-10.2) 10/07/18 05:20 25-OH Vitamin D Total 29.1 NG/ML (30.0-100.0) L 10/07/18 05:20 Blood Type O POSITIVE 10/06/18 06:20 Antibody Screen Negative 10/06/18 06:20 Crossmatch See Detail 10/06/18 06:20 BBK History Checked Patient has bt 10/06/18 06:20 Attending/Attestation - Attestation I have personally seen and examined this patient.: Yes I have fully participated in the care of the patient.: Yes I have reviewed all pertinent clinical information, including history, physical exam and plan: Yes Notes (Text): Diagnoses: Primary OA , bilateral Hip, Hx of THR , left s/p Right THR DM type II on Insulin HTN - Right THR done by Dr Martínez 10/06/2018 - Lovenox for DVT proph - PT/OT consulted- rec Home with services - Pt received IV Clinda x 3 doses for Surg Abx Prophylaxis - Pain mgt - cont Insulin , Januvia ( home dose) - cont Clonidine and Losartan - cleared by Ortho for d/c - ff up with Dr Martínez on Saturday - pt to continue Lovenox 40mg SQ daily at home ( allergic to PCN)- instructed pt
[2018-10-07] MEDS ORDERED: Cholecalciferol 1,000 INTLU TAB PO SCH (13:00)
[2018-10-07 14:43] VITALS: BP 126/77; O2SAT 98
--- NOTE | 2018-10-07 19:42 | OP ---
PROCEDURE DATE: 10/06/2018 PREOPERATIVE DIAGNOSES: 1. Severe primary osteoarthritis of the right hip. 2. Synovitis of the right hip. 3. Contractures of the right hip joint. POSTOPERATIVE DIAGNOSES: 1. Primary osteoarthritis of the right hip. 2. Synovitis of the right hip. 3. Iliopsoas tendon and capsular contracture. OPERATION PERFORMED: 1. Right total hip replacement, anterior approach. 2. Femoral neck osteotomy. 3. Right hip arthrotomy. 4. Synovectomy. 5. Release of the iliopsoas tendon. 6. Autograft bone graft. 7. Computer navigation with the [employer] system. SURGEON: Armen Lopez MD. TANNING DRUM OPERATOR: Shelly Hendrickson, certified registered nursing first beater. SECOND SEALER [employer]CRAFT: Tabby Boyce PA-C. COMPLICATIONS: No complications. DRAINS: No drains. SPECIMENS REMOVED: Bone, synovium, cartilage. BLOOD LOSS: Approximately 80 mL of blood loss. BLOOD PRODUCTS: No blood products given. POSTOPERATIVE CONDITION: Stable. TIME OF SURGERY: Incision time approximately 9 o'clock, time in the room 08:55. OPERATIVE INDICATIONS: Erik Shields is a 73-year-old gentleman with severe hypertrophic osteoarthritis of the right hip. The patient had had a marked leg length inequality, which was corrected after the left lower extremity was operated. Pros, cons, risks, and benefits of surgical approach of the right hip were discussed. The possibility of mechanical failure, infection, thromboembolic disease, possibility of secondary or tertiary surgery was discussed. The patient can no longer withstand the discomfort and wished the surgery to be accomplished. OPERATIVE PROCEDURE: After having obtained informed consent in the above fashion, after having identified side, site and procedure and a critical pause/time-out after the satisfactory induction of general and spinal anesthesia by Dr. Peters, the patient identified as Erik Shields, was placed in a modified [facility] traction positioner in the supine position. All bony prominences were well padded. Under the surgeon's direction, the fluoroscope was positioned, video images were generated and therapeutic decisions were made therefrom with interpretations by the operating surgeon. The lower extremity leg lengths had been measured preoperatively and again are evaluated intraoperatively using the fluoroscopic technique. The prior leg length inequality was corrected and all efforts were maintained to maintain the equality of the leg lengths at this point. The possibility of mechanical failure, infection, thromboembolic disease, possibility of secondary or tertiary surgery had again been discussed. The patient obviously was conversant after his left hip replacement. After sterilely prepping and draping the right lower extremity, an incision is described one fingerbreadth distal to the anterior-superior iliac spine and four fingerbreadths distal to that, superficial to the tensor fascia femoris muscle. The anterior superior iliac spine is marked with a skin scribe, after having performed a critical pause/time-out, an incision was described as above, three fingerbreadths posterior to the anterior-superior iliac spine. The skin incision was carried down through the skin and subcutaneous tissue. The fascia was divided using electrocautery. The investing fascia of the tensor fascia femoris was identified, grasped with an Allis clamp and the digastric tensor fascia femoris muscle was brought down from the fascia. This having been accomplished, the modified Medacta Ezekiel-Lorraine retractor was placed. The posterior aspect of the rectus femoris was identified. Hemostasis controlled with the Aquamantys and the Medacta retractor was placed deeper on a horizontal plane, exposing the hip joint capsule and the hip joint in a horizontal fashion. Retractor was placed superiorly and proximally. The fascia was carefully divided cell layer by cell layer. The underlying anterior branch and the lateral femoral circumflex vessels were identified and controlled with suture ligature. This having been accomplished, a capsulotomy was accomplished with the hip, first in internal rotation and external rotation brought down to the area of the intertrochanteric line and the capsule was elevated. The capsule was released. The capsule was tagged at this point using a tag suture. Modified Hohmann retractors were placed, and the femoral neck osteotomy was carefully planned. It should be noted that because the leg lengths was planned preoperatively and again planned intraoperatively, at this point the femoral neck osteotomy was accomplished at a point approximately 1.8 cm above the lesser trochanter. This having been accomplished, the Charnley retractor was placed, the lower extremity was externally rotated. The half-inch straight osteotome was placed in the cut neck and externally rotated. The bone hook having been placed, the corkscrew was introduced and the femoral head was removed from the acetabulum. At this point in time, the labrum was identified and there were found to be massive osteophytes and these were carefully removed with a curved osteotome. This having been accomplished, the Charnley retractor was placed. A portion of the capsular flap was released and the release begins with the pubofemoral ligament. There was found to be marked contracture in this relatively well-muscled 73-year-old gentleman. This having been accomplished, synovectomy was carefully accomplished. The pulvinar was identified. Arthrotomy and synovectomy was accomplished. The synovium was removed. The head measured 50 mm. Sequential reaming was carried out to 54 mm. This having been accomplished, the computer navigation commenced at this point. Two incisions were described on the anterior superior iliac spine one fingerbreadth posteriorly. The two supporting threaded pins were placed and the camera mounting was placed in the appropriate fashion. This having been accomplished, registration commences on the anterior plane of the pelvis with the anterior superior iliac spine on the left and right registered. The pelvis is thus registered in the frontal plane. This having been accomplished, reaming was accomplished medially, superiorly and posteriorly. The computer probe was applied to the reamer and the measurement is approximately 41 degrees of abduction and approximately 20 degrees of anteversion. Reaming is carried out to 54 mm. The reaming is denuded of articular cartilage and the reamings were saved. At this point in time, after bone grafting, the cup was introduced in abduction and anteversion. The 54-mm cup being applied in approximately 42 degrees of abduction and 21 degrees of anteversion. The cup having been impacted, there was found to be negative pelvic lift test. The cup was stable. This having been accomplished, the lower extremity was placed in external rotation. The pubofemoral ligament was released. The iliofemoral ligament was released and the superior capsular flap was released. This having been accomplished with further external rotation and hyperextension, the right proximal femur was identified. A portion of the iliopsoas tendon was released. At this point in time, having exposed the femur, the bridge of bone between the neck and the trochanter was removed. The bur was used to develop the plane of the femur. The rasp was placed and sequential broaching was accomplished. Sequential broaching was accomplished to a #2 broach. This having been accomplished with the +3.5 head and 28-mm standard neck, the dual mobility construct was reduced and found to be stable in all planes. This having been accomplished, the #2 Medacta collared femoral component was impacted. Autograft bone grafting was accomplished. The ceramic 28-mm head was conjoined to the 54-mm polyethylene outer bearing +3.5 for the head. The hip was reduced and found to be stable in all planes. Hemostasis was controlled with the Aquamantys and with FloSeal and this having been accomplished after thorough irrigation. At this point in time, bone grafting having been accomplished in the acetabulum, the appropriate size #2 collared Medacta femoral component was impacted. The 28-mm head with the conjoined 54-mm polyethylene outer bearing had been reduced and found to be stable in all planes. Hemostasis was controlled with the Aquamantys. Bone grafting was accomplished in the proximal femur as well. Closures in layers with O Quill for the fascia and the tensor fascia femoris, 0 Vicryl, cassandra for skin, and compression dressing was applied. The hip had been found to be stable to push-pull and range of motion in all planes. Postoperative x-rays show excellent position of the construct. OPERATIVE PROCEDURES: 1. Right total hip replacement arthroplasty, anterior approach. 2. Femoral neck osteotomy. 3. Arthrotomy of the hip. 4. Synovectomy. 5. Iliopsoas tendon release. 6. Autograft bone graft. 7. Computer navigation. Armen Lopez MD [employer]TDGene
== END 2018-10-07 15:50 | disposition home health service (06) | DRG 470 ==
LOC: H.OPSURG 06:03 → H.MEDSURG1 11:41 → H.OPSURG 15:09
PROVIDERS: ADMIT Internal Medicine; ATTEND Internal Medicine
PROC: 0SB90ZZ Excision of Right Hip Joint, Open Approach (ICD-10-PCS; 2018-10-06)
PROC: 0SR904A Replacement of Right Hip Joint with Ceramic on Polyethylene Synthetic Substitute, Uncemented, Open Approach (ICD-10-PCS; principal; 2018-10-06 07:45)
DX: M16.11 Unilateral primary osteoarthritis, right hip (principal); Z79.4 Long term (current) use of insulin; J44.9 Chronic obstructive pulmonary disease, unspecified; E11.9 Type 2 diabetes mellitus without complications; E78.00 Pure hypercholesterolemia, unspecified; E78.5 Hyperlipidemia, unspecified; I10 Essential (primary) hypertension; M06.9 Rheumatoid arthritis, unspecified; M65.9 Synovitis and tenosynovitis, unspecified; Z87.891 Personal history of nicotine dependence; Z88.0 Allergy status to penicillin; Z90.49 Acquired absence of other specified parts of digestive tract; Z96.642 Presence of left artificial hip joint; M19.90 Unspecified osteoarthritis, unspecified site; M21.70 Unequal limb length (acquired), unspecified site; M62.81 Muscle weakness (generalized); M54.9 Dorsalgia, unspecified